=== PATIENT | female | born 1985 | race Caucasian/White ===

== ENCOUNTER 2022-04-13 11:49 | Emergency (ER) | payer OTHER, SELFPAY ==
[2022-04-13 12:00] VITALS: BP 114/67; PULSE 97; RESP 20; TEMP 38.5; O2SAT 98; BMI 24.2
--- NOTE | 2022-04-13 12:08 | ECG_ITS ---
Test Reason : SYNCOPE Blood Pressure : / mmHG Vent. Rate : 084 BPM Atrial Rate : 084 BPM P-R Int : 150 ms QRS Dur : 082 ms QT Int : 372 ms P-R-T Axes : 068 076 054 degrees QTc Int : 439 ms Normal sinus rhythm Possible Left atrial enlargement Nonspecific ST and T wave abnormality Abnormal ECG No previous ECGs available Referred By: Stacy Burnham Electronically Signed By:MIGUEL ANGEL MAGANA MD
[2022-04-13 12:11] LABS: Glucose, Whole Blood 118 mg/dL (60-115)
--- OUTSIDE RECORDS SUMMARY | 2022-04-13 12:36 | XMS_ITS | Continuity of Care Document ---
:1985 Author Organization [facility] [employer] Address [address] [place] [id number] Care Team Providers Name Role Phone Not on Staff, PCP Primary Care Physician Unavailable Encounter [facility] – [place] Date(s): 04/27/21 - 05/04/21 [facility] [employer] [address] [place] [address], [address] [place] [id number] Attending Physician: Adelita Borrero MD Referring Physician: Not on Staff, Referring MD Allergies, Adverse Reactions, Alerts No Known Allergies Medications Vitamin D2 By Mouth, 0 Refills, Maintenance, 04/27/21 10:41:00 EST, Partial fill upon patient request if the prescription is for a schedule II opioid drug. Start Date: 04/27/21 Status: Ordered Problem List Condition Effective Dates Status Health Status Informant History of repair of congenital atrial Active septal defect (ASD)(Confirmed) Pelvic pain(Confirmed) Active Well woman exam(Confirmed) Active Procedures Procedure Date Related Diagnosis Body Site Status Appendectomy Completed ASD - Repair of atrial septal defect Completed Open left salpingoophorectomy for Completed endometrioma Vital Signs Most recent to oldest [Reference Range]: 1 Height 168 cm (04/27/21 10:34 AM) Weight 71.36 kg (04/27/21 10:34 AM) Body Mass Index [18.5-24.99] 25.28 *H* (04/27/21 10:34 AM) Blood Pressure [90-138/55-84 mm Hg] 110/62 mm Hg (04/27/21 10:34 AM) Blood pressure sites Arm, left (04/27/21 10:34 AM) Weight Obtained Via Standing scale (04/27/21 10:34 AM) Social History Social History Type Response Smoking Status Never (less than 100 in life time) entered on: 04/27/21 Sex
--- OUTSIDE RECORDS SUMMARY | 2022-04-13 12:36 | XMS_ITS | Continuity of Care Document ---
:1985 Author Organization [facility] [employer] Address [address] [place] [id number]- Care Team Providers Name Role Phone Not on Staff, PCP Primary Care Physician Unavailable Encounter [facility] – [place] Date(s): 03/01/22 - 03/31/22 [facility] [address] [place] [id number] Allergies, Adverse Reactions, Alerts No Known Allergies Medications Vitamin D2 By Mouth, 0 Refills, Maintenance, 04/27/21 10:41:00 EST, Partial fill upon patient request if the prescription is for a schedule II opioid drug. Start Date: 04/27/21 Status: Ordered Problem List Condition Confirmation Course Effective Dates Status Health Stat us Informant History of repair Confirmed Active of congenital atrial septal defect (ASD) Pelvic pain Confirmed Active Well woman exam Confirmed Active Social History Social History Type Response Smoking Status Never (less than 100 in life time) entered on: 04/27/21 Sex Patient Care team information Care Team PersonnelName: Not on Staff, PCP Position: S Physician (General Medicine) Member Role: PCP
[2022-04-13 12:59] LABS: Influenza A PCR POSITIVE (Negative); Influenza B PCR NEGATIVE (Negative); Resp Syncy Virus RNA Qual PCR NEGATIVE (Negative); SARS COV2 PCR INHOUSE NEGATIVE (Negative)
--- NOTE | 2022-04-13 13:33 | ED.SYNCOPE ---
HPI - Syncope General Chief Complaint: Syncope Stated Complaint: syncope Time Seen by Provider: 04/13/22 11:58 Source: patient Mode of arrival: wheelchair History of Present Illness HPI narrative: This is a 36-year-old female without significant past medical history and states that she started to not feel well Sunday evening and began taking TheraFlu as she thought that she had a cold and then today she had not had much to eat or drink throughout the day, was standing for approximately 20 minutes and then began feeling like she had a hot flash, sweating, and dizzy and sat down and states that she felt better once she sat down. She states that she had a similar episode when she was with her daughter and this has prompted a request for urine test. She denies any head strike as she did not completely pass out and even though the triage note states Tamiflu the patient has corrected that and said that she was taking TheraFlu. Related Data Allergies Allergy/AdvReac Type Severity Reaction Status Date / Time Unable to Assess Allergy Verified 04/13/22 12:07 Review of Systems Review of Systems: Pertinent positives and negatives as stated in HPI. PMFSH Past Medical History Source: nursing notes reviewed Social History Social History Advance Directives: No Advance Directives Information Provided: Yes Physical Exam Vital Signs: Vital Signs: Last Vital Signs Temp 101.3 F H 04/13/22 12:00 Pulse 97 04/13/22 12:00 Resp 20 04/13/22 12:00 BP 114/67 04/13/22 12:00 Pulse Ox 98 04/13/22 12:00 O2 Del Method 04/13/22 12:00 BMI result Body Mass Index 24.2 VITAL SIGNS: Reviewed. GENERAL: Well developed, well nourished, in no acute distress. HEAD: Normocephalic/atraumatic EYES: PERRLA, EOMI EARS: Ext canals without abnormality, TMs non-bulging and non-erythematous NOSE: Nares patent bilateral OROPHARYNX: no oral lesions noted, posterior pharynx clear and non-erythematous without noted tonsillar enlargement/erythema/exudates NECK: Supple, no adenopathy LUNGS: Normal breath sounds. No adventitious sounds or accessory muscle use. SpO2<98> CARDIOVASCULAR: Regular rate and rhythm without noted murmurs ABDOMEN: Soft, non-tender, non-distended with bowel sounds. MUSCULOSKELETAL: No tenderness, deformities, or effusions noted on gross inspection. EXTREMITIES: No cyanosis, clubbing or edema. SKIN: Inspection of the skin reveals no rashes NEUROLOGIC: Alert and oriented x 4. Strength and sensation to light touch were grossly intact x 4. Medications Administered Discontinued Medications Generic Name Dose Route Start Last Admin Trade Name Freq PRN Reason Stop Dose Admin Acetaminophen 975 mg 04/13/22 13:20 04/13/22 13:56 Acetaminophen 325 Mg Tablet PO 04/13/22 13:21 975 mg ONCE ONE Administration Medical Decision Making Medical Decision Making [facility] Narrative: 36-year-old female who appears well, she states that she feels much better, she will receive antipyretics and on review of the viral testing she is noted to be flu positive but as symptoms started Sunday evening she is outside the window for initiation of Tamiflu. She understands that treatment is symptomatic with hydration and antipyretics/analgesics. 1452: Patient is now afebrile on re-evaluation, she is feeling much better and on review of urinalysis and urine there is no evidence of infection or . This was all discussed with patient at bedside. Differential Diagnosis Differential Diagnoses: The differential diagnosis associated with the presentation includes Near syncope, viral syndrome, influenza A positive Lab Data [facility] Lab Attestation statement: I reviewed the patient's lab results. Please see above for discussion Labs: Lab Results 04/13/22 04/13/22 04/13/22 Range/Units 12:04 12:07 14:20 POC Glucose 118 H (60-115) mg/dL Urine Color Yellow Urine Appearance Clear Urine pH 5.5 (5.0-9.0) Ur Specific [place] 1.015 (1.005-1.025) Urine Protein Negative (Neg-Trace) mg/dL Urine Glucose (UA) Negative (Negative) mg/dL Urine Ketones Negative (Negative) mg/dL Urine Blood Negative (Negative) Urine Nitrite Negative (Negative) Ur Leukocyte Esterase Trace H (Negative) Urine RBC 0-2 (0-2) /HPF Urine WBC 0-5 (0-5) /HPF Ur Squamous Epith Cells 0-2 (0-2) /HPF Urine Bacteria None Seen (None Seen) Hyaline Casts 0-2 (0-2) /LPF Urine Test (NEGATIVE) Influenza Type A (PCR) POSITIVE A (Negative) Influenza Type B (PCR) NEGATIVE (Negative) RSV RNA Qual (PCR) NEGATIVE (Negative) SARS-CoV-2 RNA (RT-PCR) NEGATIVE (Negative) 04/13/22 Range/Units 14:20 POC Glucose (60-115) mg/dL Urine Color Urine Appearance Urine pH (5.0-9.0) Ur Specific [place] (1.005-1.025) Urine Protein (Neg-Trace) mg/dL Urine Glucose (UA) (Negative) mg/dL Urine Ketones (Negative) mg/dL Urine Blood (Negative) Urine Nitrite (Negative) Ur Leukocyte Esterase (Negative) Urine RBC (0-2) /HPF Urine WBC (0-5) /HPF Ur Squamous Epith Cells (0-2) /HPF Urine Bacteria (None Seen) Hyaline Casts (0-2) /LPF Urine Test NEGATIVE (NEGATIVE) Influenza Type A (PCR) (Negative) Influenza Type B (PCR) (Negative) RSV RNA Qual (PCR) (Negative) SARS-CoV-2 RNA (RT-PCR) (Negative) Independent Interpretation I performed an independent interpretation of an: EKG Interpretation: Normal sinus rhythm, HR-84, no STEMI, MO/QRS/QTC is within normal limits. Critical Care Time Critical Care Time Critical Care Time: Yes Total Critical Care Time: 30 Attestation: I personally attest to this time spent taking care of the patient. Discharge Plan Discharge Clinical Impression: Near syncope, Viral syndrome, Influenza A, Dehydration Patient Disposition: Home, Self-Care Instructions: Dehydration (ED), Syncope (ED), Influenza (ED), Viral Syndrome (ED) Additional Instructions: 1. Please remain well hydrated by drinking plenty of water. 2. Recommend [id number] Tylenol/ibuprofen as needed for body aches, temperatures greater than 100.4 but please keep track of the amount of acetaminophen as some cough and cold medication contain this ingredient and you should not exceed 4000 mg within 24 hours. 3. Please follow-up with your primary care doctor. Return to the ER for any worsening symptoms. Stand Alone Forms: Work/School Release
[2022-04-13] MEDS: Acetaminophen 325 MG TABLET 975 MG PO (13:56)
[2022-04-13 14:30] LABS: Appearance Urine Clear; Color Urine Yellow; Glucose Urine UA Negative (Negative); Leukocyte Esterase Urine Trace (Negative); Nitrite Urine Negative (Negative); PH 5.5 (5.0-9.0); Specific Gravity - Urine 1.015 (1.005-1.025); UMIC TRIGGER UACC YES; Urine Blood Negative (Negative); Urine Ketones Negative (Negative); Urine Protein Negative (Neg-Trace)
[2022-04-13 14:32] LABS: UPreg QC Valid YES; Urine Pregnancy NEGATIVE (NEGATIVE)
[2022-04-13 14:33] LABS: Bacteria Urine None Seen (None Seen); Hyaline Casts Urine 0-2 /LPF (0-2); RBC Urine 0-2 /HPF (0-2); Squamous Epithelial Cell Urine 0-2 /HPF (0-2); WBC Urine 0-5 /HPF (0-5)
[2022-04-13 14:54] VITALS: TEMP 36.9
== END 2022-04-13 15:09 | disposition home or self-care (01) ==
PROVIDERS: Emergency Provider Student in an Organized Health Care Education/Training Program
DX: R55 Syncope and collapse (principal); J11.1 Influenza due to unidentified influenza virus with other respiratory manifestations; E86.0 Dehydration
CPT/HCPCS: 0241U; 81001; 81025; 82947; 93005; 99283; 99284

== ENCOUNTER 2022-07-13 10:45 | Outpatient (REF) | payer OTHER, SELFPAY ==
[2022-07-14 12:11] LABS: CT PCR NOT DETECTED (Not Detect.); NG PCR NOT DETECTED (Not Detect.)
[2022-07-18 04:08] LABS: HPV mRNA E6/E7 rflx Not Detected (Not Detected)
== END 2022-07-13 10:46 | disposition home or self-care (01) ==
LOC: HO.LNP 10:45
PROVIDERS: Visit Provider Advanced Practice Midwife
DX: Z01.419 Encounter for gynecological examination (general) (routine) without abnormal findings (principal); Z11.51 Encounter for screening for human papillomavirus (HPV); Z20.2 Contact with and (suspected) exposure to infections with a predominantly sexual mode of transmission
CPT/HCPCS: 0353U; 87624; 88142

== ENCOUNTER 2022-09-22 08:05 | Outpatient (REF) | payer OTHER, SELFPAY ==
[2022-09-22 08:31] LABS: MANUAL DIFF FLAG NO
[2022-09-22 08:46] LABS: Basophils Percent Auto 0.5 % (0-2); Eosinophils Absolute Auto 0.1 X10*3/uL (0.0-0.4); Eosinophils Percent Auto 1.9 % (0-4); Hematocrit 40.3 % (37.0-47.0); Hemoglobin 13.2 g/dl (12.0-16.0); Imm Gran Abs Auto 0.01 X10*3/uL (0.00-0.03); Imm Gran Pct Auto 0.2 % (0.0-0.4); Lymphocytes Absolute Auto 2.3 X10*3/uL (1.2-4.9); Lymphocytes Percent Auto 39.6 % (20-40); Mean Corpuscular HGB Conc 32.8 g/dl (31.0-35.0); Mean Corpuscular Hemoglobin 28.7 pg (27.0-33.0); Mean Corpuscular Volume 87.6 fL (80.0-98.0); Mean Platelet Volume 9.6 fL (9.4-12.3); Monocytes Absolute Auto 0.3 X10*3/uL (0.1-1.2); Monocytes Percent Auto 5.8 % (2-11); Neutrophils Absolute Auto 3.1 x10*3/uL (2.0-8.3); Platelet Count 290 X10*3/uL (160-400); Red Cell Distribution Width 13.1 % (11.0-16.0); White Blood Count 5.9 X10*3/uL (4.8-10.8)
[2022-09-22 09:23] LABS: Alanine Aminotransferase 49 U/L (0-31); Albumin Level 4.1 g/dL (3.5-5.0); Alkaline Phosphatase 80 U/L (39-117); Anion Gap 11 (12-20); Aspartate Amino Transferase 32 U/L (5-31); Bilirubin Total 0.5 mg/dL (0.0-1.0); Blood Urea Nitrogen 7 mg/dL (9-16); Calcium 9.3 mg/dL (8.4-10.2); Carbon Dioxide 25 mmol/L (22-29); Chloride 108 mmol/L (96-108); Cholesterol 126 mg/dL; Estimated Glomerular Filt Rate > 60; Glucose Fasting 93 mg/dL (60-99); HDL Cholesterol 37 mg/dL; LDL Cholesterol Calculated 80 mg/dl; Potassium 4.4 mmol/L (3.3-5.1); Sodium 140 mmol/L (135-145); Total Protein 7.3 g/dL (6.5-8.0); Triglycerides 49 mg/dL
[2022-09-22 09:44] LABS: TSH reflex Free T4 0.74 uIU/mL (0.32-4.0)
== END 2022-09-22 08:06 | disposition home or self-care (01) ==
LOC: HO.LAB 08:05
PROVIDERS: Visit Provider Nurse Practitioner Family
DX: Z13.220 Encounter for screening for lipoid disorders (principal); Z13.0 Encounter for screening for diseases of the blood and blood-forming organs and certain disorders involving the immune mechanism; Z13.29 Encounter for screening for other suspected endocrine disorder
CPT/HCPCS: 36415; 80053; 80061; 84443; 85025

== ENCOUNTER 2022-09-29 10:25 | Outpatient (REF) | payer OTHER, SELFPAY ==
[2022-09-29 11:59] LABS: Alanine Aminotransferase 81 U/L (0-31); Albumin Level 4.2 g/dL (3.5-5.0); Alkaline Phosphatase 74 U/L (39-117); Anion Gap 11 (12-20); Aspartate Amino Transferase 36 U/L (5-31); Bilirubin Total 1.3 mg/dL (0.0-1.0); Blood Urea Nitrogen 9 mg/dL (9-16); Calcium 9.7 mg/dL (8.4-10.2); Carbon Dioxide 27 mmol/L (22-29); Chloride 105 mmol/L (96-108); Estimated Glomerular Filt Rate > 60; Glucose Random 87 mg/dL (60-115); Potassium 4.3 mmol/L (3.3-5.1); Sodium 139 mmol/L (135-145); Total Protein 7.3 g/dL (6.5-8.0)
[2022-09-29 12:54] LABS: HBS Num1 322.39 mIU/mL (0-7.99); HBc Num1 0.06 S/CO (0.00-0.79); HBsAGNum1 0.46 S/CO (0.00-0.99); Hepatitis A Antibody IgM 0.22 Index (0-0.79); Hepatitis B Core Antibody Nonreactive (Nonreactive); Hepatitis B Surface Antigen Negative (Negative); ~HepC Num1 0.07 S/CO (0.00-0.79); ~Hepatitis A Antibody IgM Nonreactive (Nonreactive); ~Hepatitis B Surface Antibody REACTIVE (Nonreactive); ~Hepatitis C Antibody Nonreactive (Nonreactive)
== END 2022-09-29 10:26 | disposition home or self-care (01) ==
LOC: HO.LAB 10:25
PROVIDERS: PCP Nurse Practitioner Family; Visit Provider Nurse Practitioner Family
DX: R79.89 Other specified abnormal findings of blood chemistry (principal)
CPT/HCPCS: 36415; 80053; 86704; 86706; 86709; 86803; 87340

== ENCOUNTER 2022-10-13 07:51 | Outpatient (REF) | payer OTHER, SELFPAY ==
--- NOTE | ~2022-10-13 | US_ITS ---
EXAMINATION: US ABDOMEN LIMITED CLINICAL INFORMATION: Other specified abnormal findings of blood chemistry. COMPARISON: None available. TECHNIQUE: Real-time imaging of the right upper quadrant abdominal viscera. FINDINGS: PANCREAS: Normal. LIVER: The liver is normal in size. The liver contour is normal. Parenchymal echogenicity is normal. A 3 mm echogenic focus in the right lobe of the liver possibly a tiny hemangioma or prominent periportal fat to small to definitively characterize. There is no intrahepatic biliary duct dilatation seen. GALLBLADDER: Normal. The gallbladder is physiologically distended without evidence of stones, sludge, polyps, wall thickening or pericholecystic fluid. COMMON BILE DUCT: Normal in caliber measuring 0.4 cm in diameter. RIGHT KIDNEY: Normal. No hydronephrosis. No renal calculi or focal parenchymal lesions. The kidney measures 10.7 cm in maximum dimension. FREE FLUID: None. US/US abdomen limited IMPRESSION: A 3 mm echogenic focus in the right lobe of the liver possibly a tiny hemangioma or prominent periportal fat to small to definitively characterize. Otherwise unremarkable abdominal ultrasound.
== END 2022-10-13 07:52 | disposition home or self-care (01) ==
LOC: HO.US 07:51
PROVIDERS: PCP Nurse Practitioner Family; Visit Provider Nurse Practitioner Family
DX: R79.89 Other specified abnormal findings of blood chemistry (principal)
CPT/HCPCS: 76705

== ENCOUNTER 2023-03-23 12:02 | Outpatient (AMB) | payer OTHER, SELFPAY ==
--- NOTE | 2023-03-23 12:02 | MHC.PC.OV ---
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 Accompanied by: Self / Same As Patient Allergies No Known Allergies Allergy (Verified 03/23/23 12:09) Medication List - Last Reconciled 03/23/23 by ZENOBIA Lewis No Known Home Meds Tobacco use date assessed: 09/05/22 Dental Screening Dental Screen Date: 03/23/23 Did you have a dental visit in the last 12 months?: Yes Did you have a dental problem in the last 6 months where you did not have access to dental care?: No Was dental information given to patient?: Patient has dentist HPI HPI Comments History of Present Illness Details 37-year-old female past medical history significant for ASD underwent open-heart surgery at age 13. Nauseaous daily x1 month. denies vomiting. Patient reports she is trying to conceive, states getting regular menstrual cycles, last had menses 3 weeks ago. Patient also reports sharp epigastric pain and belching. Stage that her mom and brother both have had H pylori in the past with similar symptoms. Patient would like to be tested for this. Previous blood work showed elevated LFTs, hepatitis panel nonreactive, ABD U/S: 3 mm echogenic focus in the right lobe of the liver possibly a tiny hemangioma or prominent periportal fat to small to definitively characterize. Otherwise unremarkable abdominal ultrasound. Patient also requesting referral to Dermatology for reoccur angular chelitis, states she will use steroid cream and it will resolve however that it continues to reoccur referral entered. Will draw vitamin B12, B1 and vitamin-D to further evaluate for any vitamin deficiencies [facility] Medical History (Updated 03/23/23 @ 12:32 by ZENOBIA Lewis) Palpitations Surgical History History of repair of congenital atrial septal defect (ASD) History of left oophorectomy History of appendectomy History of open heart surgery Family History Mother No problems noted. Father No problems noted. Brother CAD (coronary artery disease) Daughter No problems noted. Social History Household Members: Spouse and Children Household Members Other:: daughter Housing: Apartment Alcohol intake: never Patient Tobacco Use Status: Never used Tobacco e-Cigarette/Vaping Use: Never Used Second Hand Smoke Exposure: No Current occupational status: employed Current occupation: [employer] Sexual orientation: Straight/Heterosexual Gender identity: Female Cognitive needs: No Hearing needs: No Vision needs: No Female Reproductive History Menstrual Age of Menarche: 15 Questionnaire Thrive Questionnaire Date Thrive assessed: 09/05/22 LIANNA-7 AMB Questionnaire LIANNA-7 Date LIANNA - 7 assessed: 09/05/22 Source: Developed by Drs. Hubert Wilder, Treasure Morris, Bunny Moy and colleagues, with an educational sukumar from [employer]. Review of Systems Const Denies chills, Denies fatigue, Denies fever(s) and Denies poor appetite Eyes Denies no additional complaints ENT Reports Normal hearing present Card Denies chest pain, Denies syncope, Denies rapid heart rate and Denies dyspnea Resp Denies cough and Denies dyspnea GI Reports abdominal pain (sharp epigastric pain ), Reports belching, Denies change in stool character, Denies constipation, Denies diarrhea, Reports nausea and Denies vomiting Denies urinary frequency, Denies dysuria and Denies urinary urgency Neuro Reports Normal hearing present, Denies confusion and Denies syncope Psych Denies confusion Endo Denies fatigue Physical exam (Primary Care) Vital Signs: Last Vital Signs Pulse 102 H 03/23/23 12:03 BP 116/70 03/23/23 12:03 Pulse Ox 99 03/23/23 12:03 Oxygen Delivery Method Room Air 03/23/23 12:03 BMI result Body Mass Index 25.1 Tobacco/Smoking Status: Tobacco use Status Tobacco use date assessed 09/05/22 03/23/23 12:08 Patient Tobacco Use Status Never used Tobacco 03/23/23 12:08 e-Cigarette/Vaping Use Never Used 03/23/23 12:08 Thrive Assessment: Date of Thrive Assessment Date Thrive assessed 09/05/22 03/23/23 12:08 Const General: No confusion Orientation/consciousness: No confusion HENMT Head: Yes normocephalic and Yes atraumatic Eyes Conjunctivae: conjunctivae normal Chest Chest palpation & inspection: normal inspection of the chest Resp Effort & Inspection: normal respiratory effort Auscultation: clear to auscultation bilaterally, no crackles, no rhonchi and no wheezes Cardio Rate: regular rate Rhythm: regular rhythm Heart sounds: S1 normal heart sound present and S2 normal heart sound present GI Inspection: Yes normal to inspection Palpation (GI): Soft to palpation, nontender and No hepatosplenomegaly present Auscultation: normoactive bowel sounds Neuro General: No confusion Cranial nerves: Yes Normal hearing present Extrem General: No edema Assessment and Plan Assessment & Plan (1) Nauseous: Code(s): R11.0 - Nausea Plan: Upper prescription for Zofran however patient declines that she does not like to take medications. Will draw hCG to rule out given patient actively trying to conceive. (2) Dyspepsia: Code(s): R10.13 - Epigastric pain Plan: Epigastric pain and belching possibly related to dyspepsia or acid reflux did discuss trialing omeprazole. However patient would like to hold off at this time. Patient advise can try [id number] Tums she would like. (3) Elevated LFTs: Code(s): R79.89 - Other specified abnormal findings of blood chemistry Plan: Repeat LFTs ordered. Patient reports does not drink any alcohol and denies excessive Tylenol use. (4) Angular cheilitis: Code(s): K13.0 - Diseases of lips (5) Epigastric pain: Code(s): R10.13 - Epigastric pain Plan: H. pylori ordered Patient declined treatment with omeprazole for possible acid reflux. Advise can use [id number] to on. Orders: Orders H Pylori Breath Test Today Vitamin D 25-OH Total Today Z13.21 - Encounter for screening for nutritional disorder Vitamin B1 Today Z13.21 - Encounter for screening for nutritional disorder Comprehensive Met. Panel Today R10.13 - Epigastric pain HCG Quantitative Today R11.0 - Nausea Vitamin B12 and Folate Today Z13.21 - Encounter for screening for nutritional disorder Referrals Dermatology Referral K13.0 - Diseases of lips Coding Level of Care Code Est Pt Level 3 (86959) Diagnoses Nauseous R11.0 Dyspepsia R10.13 Elevated LFTs R79.89 Angular cheilitis K13.0 Epigastric pain R10.13
[2023-03-23 12:03] VITALS: BP 116/70; PULSE 102; O2SAT 99; BMI 25.1
== END 2023-03-23 13:49 | disposition home or self-care (01) ==
PROVIDERS: PCP Nurse Practitioner Family; Visit Provider Nurse Practitioner Family
DX: R11.0 Nausea (principal); R10.13 Epigastric pain; R79.89 Other specified abnormal findings of blood chemistry; K13.0 Diseases of lips
CPT/HCPCS: 99213

== ENCOUNTER 2023-03-26 08:00 | Outpatient (REF) | payer OTHER, SELFPAY ==
[2023-03-26 11:08] LABS: Alanine Aminotransferase 25 U/L (0-31); Albumin Level 4.4 g/dL (3.5-5.0); Alkaline Phosphatase 77 U/L (39-117); Anion Gap 12 (12-20); Aspartate Amino Transferase 20 U/L (5-31); Bilirubin Total 0.5 mg/dL (0.0-1.0); Blood Urea Nitrogen 12 mg/dL (9-16); Calcium 9.3 mg/dL (8.4-10.2); Carbon Dioxide 25 mmol/L (22-29); Chloride 107 mmol/L (96-108); Estimated Glomerular Filt Rate > 60; Glucose Random 89 mg/dL (60-115); Potassium 3.8 mmol/L (3.3-5.1); Sodium 140 mmol/L (135-145); Total Protein 7.6 g/dL (6.5-8.0)
[2023-03-26 11:16] LABS: HCG Quantitative < 2 mIU/mL; Vitamin D 25-OH Total 27.3 ng/mL (>30)
[2023-03-26 11:20] LABS: Folate 11.5 ng/mL (> or = 4.0); Vitamin B12 709 pg/mL (200-900)
[2023-03-30 11:09] LABS: Vitamin B1 10 nmol/L (8-30)
== END 2023-03-26 08:01 | disposition home or self-care (01) ==
LOC: HO.LAB 08:00
PROVIDERS: Visit Provider Nurse Practitioner Family
DX: Z13.21 Encounter for screening for nutritional disorder (principal); R11.0 Nausea; R79.89 Other specified abnormal findings of blood chemistry
CPT/HCPCS: 36415; 80053; 82306; 82607; 82746; 84425; 84702

== ENCOUNTER 2023-04-24 12:53 | Outpatient (AMB) | payer OTHER, SELFPAY ==
--- NOTE | 2023-04-24 13:05 | A.OFFVIS_ITS ---
Intake Vital Signs 04/24/23 13:07 Height 5 ft 6 in Weight 156 lb 8.451 oz BMI 25.3 BP 116/71 Blood Pressure Location Lt brachial Position Sitting Pulse 72 Intake Visit Reasons: Epigastric Pain Intake Note: Mabel presents in the office as a new patient for epigastric pain. CC: She states that it comes on and off. She has been fasting because she wants to do an H PYLORI breathe test. Mother and brother both tested positive and had treatment. Allergies No Known Allergies Allergy (Verified 04/24/23 13:07) HPI HPI Comments History of Present Illness Details A 37-year-old female referred with intermittent epigastric pain, maybe 1-2 times a week-she says that both her mother and brother had H pylori In occasional intermittent vague epigastric pain-she has not tried any remedy Liver enzymes are normal Healthy otherwise- appetite is good Bowels ok No nausea, vomiting hematemesis, hematochezia fever chills PFSH Medical History Palpitations Surgical History History of repair of congenital atrial septal defect (ASD) History of left oophorectomy History of appendectomy History of open heart surgery Family History Mother No problems noted. Father No problems noted. Brother CAD (coronary artery disease) Daughter No problems noted. Maternal Aunt Colon cancer Social History Household Members: Spouse and Children Household Members Other:: daughter Housing: Apartment Alcohol intake: never Comment: social- rarely Patient Tobacco Use Status: Never used Tobacco e-Cigarette/Vaping Use: Never Used Second Hand Smoke Exposure: No Current occupational status: employed Current occupation: [employer] Sexual orientation: Straight/Heterosexual Gender identity: Female Cognitive needs: No Hearing needs: No Vision needs: No Female Reproductive History Menstrual Age of Menarche: 15 Review of Systems Const All systems reviewed & are unremarkable except as noted in HPI and below Card Denies chest pain and Denies dyspnea Resp Denies dyspnea GI Denies hematochezia, Denies change in bowel habits, Reports dyspepsia, Denies heartburn, Denies nausea and Denies vomiting Physical Exam Vital Signs: Last Vital Signs Pulse 72 04/24/23 13:07 BP 116/71 04/24/23 13:07 BMI result Body Mass Index 25.3 Const General: cooperative, healthy appearing, comfortable and no acute distress Orientation/consciousness: patient oriented x3 Limitations: no limitations Eyes Sclerae: sclerae normal Resp Effort & Inspection: normal respiratory effort and able to speak in complete sentences Auscultation: clear to auscultation bilaterally, no rales, no rhonchi and no wheezes Cardio Rate: regular rate Rhythm: regular rhythm Heart sounds: S1 normal heart sound present and S2 normal heart sound present GI Palpation (GI): Soft to palpation and nontender Auscultation: normal bowel sounds Skin General skin exam: no rashes or lesions noted Neuro General: patient oriented x3 Extrem General: Yes full ROM Psych Appearance: grossly normal and well kempt Mental Status: mental status grossly normal Speech and movement: Normal speech and movement present and Clear speech present Affect: normal affect Attitude: cooperative Thought process: Normal thought process present Thought content: Normal thought content present Insight: Good insight present (Psych) Judgement: Good judgement present (Psych) Results Reviewed Results Reviewed: 09/2022 US/US abdomen limited IMPRESSION: A 3 mm echogenic focus in the right lobe of the liver possibly a tiny hemangioma or prominent periportal fat to small to definitively characterize. Otherwise unremarkable abdominal ultrasound. Assessment & Plan Assessment & Plan (1) Dyspepsia: Comment: Intermittent vague Code(s): R10.13 - Epigastric pain Plan: H pylori breath test if positive will treat Meanwhile will trial famotidine 20 mg daily Try to identify culprits and avoid (2) Epigastric pain: Comment: Intermittent, normal liver enzymes Code(s): R10.13 - Epigastric pain Plan HP UBT- obtained- if pos tx famotodine 20mg Orders: Orders H Pylori Breath Test Today R10.13 - Epigastric pain, R11.0 - Nausea Medications: New famotidine 20 mg PO DAILY 30 days PRN 30 tabs 3RF acid reflux Patient Instructions: Very pleasant 37-year-old female-dyspepsia, family members with H pylori HP UBT- obtained- if pos tx famotodine 20 mg she will stop up for results Encouraged to call with any questions or concerns Coding Level of Care Code New Pt Level 3 (58922) Diagnoses Dyspepsia R10.13 Epigastric pain R10.13 Time Spent (min) 30
[2023-04-24 13:07] VITALS: BP 116/71; PULSE 72; BMI 25.3
== END 2023-04-24 14:14 | disposition home or self-care (01) ==
PROVIDERS: PCP Nurse Practitioner Family; Visit Provider Physician Assistant
DX: R10.13 Epigastric pain (principal)
CPT/HCPCS: 99203

== ENCOUNTER 2023-04-24 12:53 | Outpatient (REF) | payer OTHER, SELFPAY ==
[2023-04-27 09:55] LABS: H Pylori Breath Test Negative (Negative)
== END 2023-04-24 12:54 | disposition home or self-care (01) ==
LOC: HO.LNP 12:53
PROVIDERS: PCP Nurse Practitioner Family; Visit Provider Physician Assistant
DX: R10.13 Epigastric pain (principal)
CPT/HCPCS: 83013

== ENCOUNTER 2023-06-18 11:22 | Outpatient (AMB) | payer OTHER, SELFPAY ==
--- NOTE | 2023-06-18 11:30 | MHC.OFFVIS ---
Intake Vital Signs 06/18/23 11:31 Height 5 ft 6 in Weight 152 lb 1.903 oz BMI 24.5 BP 101/57 L Blood Pressure Location Lt brachial Position Sitting Pulse 72 Intake Visit Reasons: Follow up meds Intake Note: Patient follow up for chronic abdominal pain Patient cc: upper abdominal pain almost daily with nauseas, and some diarrhea. Spares Scheduler Required: No Accompanied by: Self / Same As Patient Allergies No Known Allergies Allergy (Verified 06/18/23 11:30) HPI HPI Comments History of Present Illness Details A 37 y/o female seen in April with- chronic epigastric pain- and wlrwfh-[id number]-f 1 month- not helpful HP- UBT- negative-request retest for H pylori- request EGD, She now c/o loose stool maybe once a week-occasion, randomly will have rectal itching no rectal bleeding Request to be tested for parasites-she lives with her young daughter and no symptoms-she refers back to her childhood Reviewed labs- nrml enzymes She has no vomiting, hematemesis, hematochezia fever or chills PFSH Medical History Palpitations Surgical History History of repair of congenital atrial septal defect (ASD) History of left oophorectomy History of appendectomy History of open heart surgery Family History Mother No problems noted. Father No problems noted. Brother CAD (coronary artery disease) Daughter No problems noted. Maternal Aunt Colon cancer Social History Household Members: Spouse and Children Household Members Other:: daughter Housing: Apartment Alcohol intake: never Comment: social- rarely Patient Tobacco Use Status: Never used Tobacco e-Cigarette/Vaping Use: Never Used Second Hand Smoke Exposure: No Current occupational status: employed Current occupation: [employer] Sexual orientation: Straight/Heterosexual Gender identity: Female Cognitive needs: No Hearing needs: No Vision needs: No Female Reproductive History Menstrual Age of Menarche: 15 Review of Systems Const All systems reviewed & are unremarkable except as noted in HPI and below Physical Exam Vital Signs: Last Vital Signs Pulse 72 06/18/23 11:31 BP 101/57 L 06/18/23 11:31 BMI result Body Mass Index 24.5 Const General: cooperative, healthy appearing, comfortable and no acute distress Orientation/consciousness: patient oriented x3 Limitations: no limitations Resp Effort & Inspection: normal respiratory effort and able to speak in complete sentences Auscultation: clear to auscultation bilaterally, no rales, no rhonchi and no wheezes Cardio Rate: regular rate Rhythm: regular rhythm Heart sounds: S1 normal heart sound present and S2 normal heart sound present GI Palpation (GI): Soft to palpation and nontender Auscultation: normal bowel sounds Skin General skin exam: no rashes or lesions noted Neuro General: patient oriented x3 Extrem General: Yes full ROM Psych Appearance: grossly normal and well kempt Speech and movement: Clear speech present Affect: normal affect and Anxious affect present Attitude: cooperative Thought process: Normal thought process present Thought content: Normal thought content present Assessment & Plan Assessment & Plan (1) Rectal itching: Comment: declines tess Code(s): L29.0 - Pruritus ani Plan: O&P (2) Epigastric pain: Comment: Intermittent, normal liver enzymes Code(s): R10.13 - Epigastric pain Plan: EGD ppi (3) IBS (irritable bowel syndrome): Comment: Symptoms somewhat vague-alternating stool pattern- Code(s): K58.9 - Irritable bowel syndrome without diarrhea Plan: Maintain high-fiber diet Plan EGD may be low yield, if negative will be reassuring, hopefully-r/o PUD, nonulcer dyspepsia, esophagitis other endoscopic findings to account for her symptoms ppi O&P Orders: Orders Ova and Parasite Today L29.0 - Pruritus ani, R10.13 - Epigastric pain EDG - GI Use Only Today R10.13 - Epigastric pain Medications: New omeprazole 20 mg PO DAILY 30 days 30 caps 5RF Patient Instructions: EGD Reflux precautions Stool for O&P Encouraged to call questions or concerns Coding Level of Care Code Est Pt Level 3 (02346) Diagnoses Rectal itching L29.0 Epigastric pain R10.13 IBS (irritable bowel syndrome) K58.9 Time Spent (min) 30
[2023-06-18 11:31] VITALS: BP 101/57; PULSE 72; BMI 24.5
== END 2023-06-18 12:38 | disposition home or self-care (01) ==
PROVIDERS: PCP Nurse Practitioner Family; Visit Provider Physician Assistant
DX: L29.0 Pruritus ani (principal); R10.13 Epigastric pain; K58.9 Irritable bowel syndrome, unspecified
CPT/HCPCS: 99213

== ENCOUNTER → 2023-06-18 11:22 | Outpatient (BNVA) | payer OTHER, SELFPAY | PROVIDERS: PCP Nurse Practitioner Family; Visit Provider Physician Assistant ==

== ENCOUNTER 2023-06-19 10:03 | Day surgery (SDC) | payer OTHER, SELFPAY ==
[2023-06-19 10:20] VITALS: BMI 25.3
[2023-06-19 10:28] LABS: UPreg QC Valid YES; Urine Pregnancy NEGATIVE (NEGATIVE)
[2023-06-19 10:31] VITALS: BP 107/66; PULSE 99; RESP 18; TEMP 36.6; O2SAT 96
--- NOTE | 2023-06-19 10:42 | P.CONAN_ITS ---
HPI - Anesthesia Eval Consult details Narrative: 37 yo F presenting for EGD due to chronic abdominal pain. Hx of ASD s/p repair at age 13. PMF Active Problems Active Problems: All Active Problems (Updated 06/18/23 @ 12:36 by Angela Harris PA-C) IBS (irritable bowel syndrome) (Acute) Rectal itching (Acute) Epigastric pain (Acute) Angular cheilitis (Acute) Dyspepsia (Acute) Nauseous (Acute) Elevated LFTs (Acute) Otitis externa (Acute) Past Medical History Medical History Palpitations Family History Family History Mother No problems noted. Father No problems noted. Brother CAD (coronary artery disease) Daughter No problems noted. Maternal Aunt Colon cancer Family history of problems with anesthesia: No Surgical History Surgical History History of repair of congenital atrial septal defect (ASD) History of left oophorectomy History of appendectomy History of open heart surgery History of Problems with Anesthesia: No Social History Social History Household Members: Spouse and Children Household Members Other:: daughter Housing: Apartment Alcohol intake: never Comment: social- rarely Patient Tobacco Use Status: Never used Tobacco e-Cigarette/Vaping Use: Never Used Second Hand Smoke Exposure: No Are you DNR?: No Advance Directives: No Advance Directives Information Provided: Yes Nutrition Risks: No Nutritional Risk FDLMP: 06/18/23 Current occupational status: employed Current occupation: [employer] Sexual orientation: Straight/Heterosexual Gender identity: Female Cognitive needs: No Hearing needs: No Vision needs: No Meds Allergies Allergy/AdvReac Type Severity Reaction Status Date / Time No Known Allergies Allergy Verified 06/19/23 10:38 Active Medications: Current Medications Lactated Ringer's (Lr) 1,000 mls @ 80 mls/hr IVCONT .[id number] [facility] Home Medications Medication Instructions Recorded Confirmed Last Taken Type vit no.95-ferrous 1 tab PO DAILY 04/24/23 06/19/23 Unknown History fumarate 28 mg-folic acid 800 mcg tablet () Exam Exam Date and Time: June 19, 2023 1040 Height,Weight and Vital Signs: Height 5 ft 6 in Weight 71.214 kg Last Vital Signs Temp 97.9 F 06/19/23 10:31 Pulse 99 06/19/23 10:31 Resp 18 06/19/23 10:31 BP 107/66 06/19/23 10:31 Pulse Ox 96 06/19/23 10:31 O2 Del Method Room Air 06/19/23 10:31 Pertinent Lab Results Pertinent Lab Results: Laboratory Tests 06/19/23 10:00 Urine Test NEGATIVE Airway Mallampati Class: I TM Dist: >3cm Neck ROM: Full Loose/Missing/Broken Teeth: Yes (missing molar left side) Heart: S1S2 Lungs: CTAB Assessment and Plan Assessment Anesthesia Assessment: Anesthesia Plan Discussed and Chart Reviewed Final Anesthetic Review Family History of Problems with Anesthesia: No History of Problems with Anesthesia: No NPO: Yes ASA Class: II Final Preanesthetic Review: No Changes in Pt Med Stat, Meds/Allgs Chart Reviewed, Consent Obtained/Reviewed and Anes Risks/Benef Reviewed Patient Risk: Low Procedure Risk: Low Anesthetic Plan Anesthetic Plan: MAC: and Agree w/ Assess. and Plan Disposition: Standard PACU
[2023-06-19] MEDS: Lactated Ringers 1,000 ML 80 ML IVCONT (11:19)
--- NOTE | 2023-06-19 12:08 | MHC.SHP ---
Pre-Procedural Eval Section A - 24 Hr Update-Section A only Date of Service: 06/19/23 Section B - Complete if H&P > 30 days Chief Complaint: Epigastric pain Relevant Family History (Specify if Yes): No Relevant Social History: None Present Medications: see Short Stay Collaborative assessment Medical History: Significant History (Palpitations) History of Previous Operations: Relevant previous surgery/procedure and date(s) (History of repair of congenital atrial septal defect (ASD) History of left oophorectomy History of appendectomy History of open heart surgery) Allergies: Allergies Allergy/AdvReac Type Severity Reaction Status Date / Time No Known Allergies Allergy Verified 06/19/23 10:38 Review of Systems Sugical H&P ROS: Negative: Constitution, Cardiovascular, Respiratory, Neurological, Psychiatric, Hem-Onc, Allergic/Immunologic, Gastrointestinal, Genitourinary, Musculoskeletal, Integumentary, Endocrine and Eyes/Ears/Nose/Throat Exam Surgical H&P Exam: Normal: HEENT, Normal: Heart, Normal: Lungs, Normal: Extremities, Normal: Abdomen, Normal: Skin and Normal: Neurological Plan Diagnosis/Plan: Unchanged I have reviewed the history and physical and performed a pertinent physical examination on my patient. No changes have occurred unless specified. Time Spent With Patient Time: Total time managing care of this patient today ____ minutes.
--- NOTE | 2023-06-19 12:09 | W.PM.OPN ---
Operative Note Operative Note Date of Service: 06/19/23 Narrative: Procedure Description: EGD Indication: epigastric pain Anesthesia: MAC FLEXIBLE TRANSORAL UPPER GASTROINTESTINAL ENDOSCOPY UPPER ENDOSCOPY Consent: Indications for the procedure and potential complications of bleeding, perforation, reaction to medications and missed diagnosis were discussed with the patient and informed consent was obtained. Instrument: Olympus GIF H 190 J mid size upper endoscope Monitoring: Vital signs and clinical assessment, continuous EKG monitoring, Pulse oximetry, Carbon Dioxide monitoring and blood pressure monitoring were done throughout the procedure. Procedure: The patient was placed in the left lateral decubitis position and pre-procedure medications were administered and a bite block was placed. The endoscope was inserted into the mouth and advanced under direct vision to the third part of duodenum. A careful inspection was made as the upper endoscope was withdrawn including a retroflexed examination of the proximal stomach; Findings and interventions are described below. Findings: Larynx:normal Esophagus: GE junction at 38 cm, diaphragm hiatus at 38 cm, bx taken from distal esophagus and GEJ in separate jars Stomach: patchy erythema . Biopsies were obtained. Grade 2 flap valve on retroflexed examination of the cardia. There was limited gastric motility noted. Duodenum: Normal bulb and descending duodenum, bx taken (stomach and duodenum samples ended up in the same jar) Intervention: Biopsies as noted above, Impression/Findings: gastritis possible gastroparesis PLAN: if bx neg then can consider GES, Us doppler to r/o celiac axis compression (MALS)
[2023-06-19 12:33] VITALS: BP 102/57; PULSE 94; RESP 18; TEMP 36.6; O2SAT 97
[2023-06-19 12:48] VITALS: BP 104/62; PULSE 80; RESP 18; O2SAT 98
== END 2023-06-19 13:01 | disposition home or self-care (01) ==
PROVIDERS: Anesthesiology; PCP Nurse Practitioner Family; Visit Provider Internal Medicine Gastroenterology
PROC: 0DJ08ZZ Inspection of Upper Intestinal Tract, Via Natural or Artificial Opening Endoscopic (ICD-10-PCS; CPT 43235; principal; 2023-06-19 12:50)
DX: K29.70 Gastritis, unspecified, without bleeding (principal); K21.9 Gastro-esophageal reflux disease without esophagitis; L29.0 Pruritus ani; R10.13 Epigastric pain; K58.9 Irritable bowel syndrome, unspecified
CPT/HCPCS: 43239; 81025; 88305; 88313; 88342; J2704

== ENCOUNTER → 2023-06-19 10:03 | Outpatient (BNV) | payer OTHER, SELFPAY | PROVIDERS: PCP Nurse Practitioner Family; Visit Provider Internal Medicine Gastroenterology | DX: K29.70 Gastritis, unspecified, without bleeding (principal) | CPT/HCPCS: 43239 ==

== ENCOUNTER 2023-07-05 12:54 | Outpatient (AMB) | payer OTHER, SELFPAY ==
--- NOTE | 2023-07-05 12:56 | A.OFFVIS_ITS ---
Intake Vital Signs 07/05/23 12:59 Height 5 ft 6 in Weight 160 lb 7.944 oz BMI 25.9 BP 118/66 Blood Pressure Location Lt brachial Position Sitting Pulse 77 Intake Visit Reasons: S/P EGD; Dr. Calero Intake Note: Aida presents in the office as a follow up EGD. CC: She states that everything is still the same as it was before. Allergies No Known Allergies Allergy (Verified 07/05/23 12:57) Medication List - Last Reconciled 07/05/23 by Angela Harris PA-C omeprazole 20 mg PO DAILY 30 days PNV cmb#95-ferrous fumarate-FA 28 mg iron- 800 mcg () 1 tab PO DAILY HPI HPI Comments History of Present Illness Details A 37-year-old female with multiple GI complaints follows up after EGD with bx biopsies reveal mild gastritis recommend a omeprazole for 6-8 We had previously did H pylori test which was negative Repeated labs for elevated liver enzymes liver enzymes normal She presents today-she tolerated procedure well Reviewed procedure report, pathology as well as recommendations She has been taking omeprazole 20 mg daily and notes some improvement in her symptoms. She occasionally will get epigastric discomfort she is unable to identify anything causes it. She does not drink or smoke she eats a healthy diet She has nausea 1 to 2 times a week-not associated to anything specific that she notes He has no vomiting, fever or chills PFSH Medical History (Updated 07/05/23 @ 13:34 by Angela Harris PA-C) Palpitations Surgical History History of esophagogastroduodenoscopy (EGD) Hx of colonoscopy History of repair of congenital atrial septal defect (ASD) History of left oophorectomy History of appendectomy History of open heart surgery Family History Mother No problems noted. Father No problems noted. Brother CAD (coronary artery disease) Daughter No problems noted. Maternal Aunt Colon cancer Social History Household Members: Spouse and Children Household Members Other:: daughter Housing: Apartment Alcohol intake: never Comment: social- rarely Patient Tobacco Use Status: Never used Tobacco e-Cigarette/Vaping Use: Never Used Second Hand Smoke Exposure: No Current occupational status: employed Current occupation: [employer] Sexual orientation: Straight/Heterosexual Gender identity: Female Cognitive needs: No Hearing needs: No Vision needs: No Female Reproductive History Menstrual Age of Menarche: 15 Review of Systems GI Reports nausea Physical Exam Vital Signs: Last Vital Signs Pulse 77 07/05/23 12:59 BP 118/66 07/05/23 12:59 BMI result Body Mass Index 25.9 Const General: cooperative, healthy appearing, comfortable and no acute distress Orientation/consciousness: patient oriented x3 Limitations: no limitations Eyes General: appearance normal, both eyes and all related structures Sclerae: sclerae normal Resp Effort & Inspection: normal respiratory effort and able to speak in complete sentences Neuro General: patient oriented x3 Extrem General: Yes full ROM Psych Appearance: grossly normal and well kempt Mental Status: mental status grossly normal Speech and movement: Normal speech and movement present and Clear speech present Affect: normal affect Attitude: cooperative Thought process: Normal thought process present Thought content: Normal thought content present Insight: Good insight present (Psych) Judgement: Good judgement present (Psych) Results Reviewed Results Reviewed: Impression/Findings: gastritis possible gastroparesis PLAN: if bx neg then can consider GES, Us doppler to r/o celiac axis compression (MALS) US/US abdomen limited IMPRESSION: A 3 mm echogenic focus in the right lobe of the liver possibly a tiny hemangioma or prominent periportal fat to small to definitively characterize. Otherwise unremarkable abdominal ultrasound. Assessment & Plan Assessment & Plan (1) IBS (irritable bowel syndrome): Comment: Very pleasant 37 y/o female- some improvement her sx- with omeprazole- Code(s): K58.9 - Irritable bowel syndrome without diarrhea Plan: she will continue ppi- (2) Nauseous: Comment: Discussed GES as well as Doppler ultrasound Code(s): R11.0 - Nausea Plan: Will hold off for now she will continue PPI Plan She will call or portal msg- any concerns Patient Instructions: She will call or portal msg- any concerns Coding Level of Care Code Est Pt Level 3 (37728) Diagnoses IBS (irritable bowel syndrome) K58.9 Nauseous R11.0 Time Spent (min) 18
[2023-07-05 12:59] VITALS: BP 118/66; PULSE 77; BMI 25.9
== END 2023-07-05 14:02 | disposition home or self-care (01) ==
PROVIDERS: PCP Nurse Practitioner Family; Visit Provider Physician Assistant
DX: K58.9 Irritable bowel syndrome, unspecified (principal); R11.0 Nausea
CPT/HCPCS: 99213

== ENCOUNTER → 2023-07-05 12:54 | Outpatient (BNVA) | payer OTHER, SELFPAY | PROVIDERS: PCP Nurse Practitioner Family; Visit Provider Physician Assistant ==

== ENCOUNTER 2023-08-14 07:59 | Outpatient (REF) | payer OTHER, SELFPAY ==
[2023-08-14 08:51] LABS: MANUAL DIFF FLAG NO
[2023-08-14 09:06] LABS: Basophils Percent Auto 0.6 % (0-2); Eosinophils Absolute Auto 0.1 X10*3/uL (0.0-0.4); Eosinophils Percent Auto 2.5 % (0-4); Hematocrit 37.9 % (37.0-47.0); Hemoglobin 12.7 g/dl (12.0-16.0); Imm Gran Abs Auto 0.01 X10*3/uL (0.00-0.03); Imm Gran Pct Auto 0.2 % (0.0-0.4); Lymphocytes Absolute Auto 1.8 X10*3/uL (1.2-4.9); Lymphocytes Percent Auto 36.2 % (20-40); Mean Corpuscular HGB Conc 33.5 g/dl (31.0-35.0); Mean Corpuscular Hemoglobin 28.9 pg (27.0-33.0); Mean Corpuscular Volume 86.3 fL (80.0-98.0); Mean Platelet Volume 9.9 fL (9.4-12.3); Monocytes Absolute Auto 0.4 X10*3/uL (0.1-1.2); Monocytes Percent Auto 7.2 % (2-11); Neutrophils Absolute Auto 2.6 x10*3/uL (2.0-8.3); Neutrophils Percent Auto 53.3 % (45-73); Platelet Count 226 X10*3/uL (160-400); Red Blood Count 4.39 X10*6/uL (4.20-5.50); Red Cell Distribution Width 13.1 % (11.0-16.0); White Blood Count 4.8 X10*3/uL (4.8-10.8)
[2023-08-14 09:51] LABS: Estimated Average Glucose 103 mg/dL; Hemoglobin A1c % 5.2 % (<6.0)
[2023-08-14 10:12] LABS: Syphilis Screen Nonreactive (Nonreactive)
[2023-08-14 10:20] LABS: Thyroid Stimulating Hormone 1.36 uIU/mL (0.32-4.0); Vitamin D 25-OH Total 24.6 ng/mL (>30)
[2023-08-14 10:21] LABS: HBsAGNum1 0.34 S/CO (0.00-0.99); HIV AB/AG Nonreactive (Nonreactive); HIV Num 1 0.04 S/CO (0.00-0.99); Hepatitis B Surface Antigen Negative (Negative); ~HepC Num1 0.08 S/CO (0.00-0.79); ~Hepatitis C Antibody Nonreactive (Nonreactive)
[2023-08-14 15:17] LABS: CT PCR NOT DETECTED (Not Detect.); NG PCR NOT DETECTED (Not Detect.)
[2023-08-15 07:08] LABS: Follicle Stimulating Hormone 5.8 mIU/mL; Lutenizing Hormone 2.5 mIU/mL; Prolactin 10.9 ng/mL
[2023-08-16 03:28] LABS: Rubella IgG Antibody 6.16 Index
[2023-08-20 07:23] LABS: Estradiol Ultra Sensitive 21 pg/mL
[2023-08-25 16:13] LABS: Anti-Mullerian Hormone-Female 2.06 ng/mL (0.36-10.07)
== END 2023-08-14 08:00 | disposition home or self-care (01) ==
LOC: HO.LAB 07:59
PROVIDERS: Visit Provider Obstetrics & Gynecology Reproductive Endocrinology
DX: Z31.41 Encounter for fertility testing (principal); Z11.59 Encounter for screening for other viral diseases; Z11.4 Encounter for screening for human immunodeficiency virus [HIV]
CPT/HCPCS: 0353U; 82166; 82306; 82670; 83001; 83002; 83036; 84146; 84443; 85025; 86762; 86780; 86803; 86850; 86900; 86901; 87340; 87389

== ENCOUNTER 2023-08-23 09:07 | Outpatient (AMB) | payer OTHER, SELFPAY ==
[2023-08-23 09:13] VITALS: BP 100/56; BMI 26.1
--- NOTE | 2023-08-23 09:13 | MHC.OFFVIS ---
Vital Signs 08/23/23 09:13 Height 5 ft 6 in Weight 162 lb BMI 26.1 BP 100/56 L Intake Visit Reasons: Annual Intake Note: Has been trying to conceive for a years. Carpenter'S Helper Required: No Information Interpreted: non-clinical & clinical Buckle Wire Inserter: Buckle Wire Inserter Present (Ki) Allergies No Known Allergies Allergy (Verified 08/23/23 09:18) Is last menstrual period known: Yes Last menstrual period: 08/13/23 Post menopausal: No HPI Comments Details: She is a premenopausal woman presenting for annual examination. Doing well with concerns: Trying to conceive over the last year. Her daughter is 4-1/2, she received services last but did conceive on her own spontaneously after the HSG procedure. Has a appointment later today with a [facility] services today, having a workup an HSG is scheduled later this afternoon. She reports an occasional right lower pelvic discomfort. She tries to eat healthy and stays active with exercise. Regular monthly menses. Currently is sexually active. She denies vaginal itching and irritation. STI screening is up-to-date. Denies family history of breast or ovarian FH colon cancer M. aunt. [facility] 2022[facility] Medical History Palpitations Surgical History (Updated 08/23/23 @ 09:20 by ALICE Rausch) Hx of endoscopy History of esophagogastroduodenoscopy (EGD) History of repair of congenital atrial septal defect (ASD) History of left oophorectomy History of appendectomy History of open heart surgery Family History Mother No problems noted. Father No problems noted. Brother CAD (coronary artery disease) Daughter No problems noted. Maternal Aunt Colon cancer Social History (Updated 08/23/23 @ 09:21 by ALICE Rausch) Household Members: Spouse and Children Household Members Other:: daughter Housing: Apartment Alcohol intake: current Alcohol intake frequency: holidays/special occasions only Comment: social- rarely Patient Tobacco Use Status: Never used Tobacco e-Cigarette/Vaping Use: Never Used Second Hand Smoke Exposure: No Current occupational status: employed Current occupation: [employer] Sexual orientation: Straight/Heterosexual Gender identity: Female Cognitive needs: No Hearing needs: No Vision needs: No Female Reproductive History Menstrual Age of Menarche: 15 Duration of menses: 6-7 days Date of last menstrual period: 08/13/23 control method: none Total pregnancies: 1 Full term: 1 Number of Living Children: 1 Date of last pap smear: 07/14/22 (negative) Review of Systems Const All systems reviewed & are unremarkable except as noted in HPI and below Reports as per HPI Eyes Reports no additional complaints ENT Reports no additional complaints Card Reports no additional complaints Resp Reports no additional complaints GI Reports as per HPI and Reports no additional complaints Reports as per HPI Musc Reports no additional complaints Skin/Breast Reports as per HPI Neuro Reports no additional complaints Psych Reports no additional complaints Endo Reports no additional complaints Harry/Lymph Reports no additional complaints Aller/Immun Reports no additional complaints Physical Exam Vital Signs: Last Vital Signs BP 100/56 L 08/23/23 09:13 BMI result Body Mass Index 26.1 Const General: cooperative, healthy appearing, no acute distress, well developed and alert Orientation/consciousness: patient oriented x3 HEENT Head: Yes normal to inspection Eyes General: appearance normal, both eyes and all related structures Neck Neck: Yes normal visual inspection Thyroid: Thyroid normal Chest Other: Scar Chest palpation & inspection: normal inspection of the chest and other (no puckering, dimpling, peau de orange, retraction, discharge, masses) Breast/axilla inspection: normal inspection of the breasts Breast/axilla palpation: normal palpation of the breasts Resp Effort & Inspection: normal respiratory effort GI Inspection: Yes normal to inspection Palpation (GI): Soft to palpation Rectal Exam - Female: deferred General: Yes bladder normal to palpation External Female Exam: normal external appearance and normal appearance of the urethra Speculum Exam - Vagina: normal appearance of the vagina, normal palpation and normal vaginal discharge Speculum Exam - Cervix: normal appearance of the cervix and normal palpation Bimanual exam- vagina & uterus: normal bimanual exam, normal palpation, uterine size normal, bladder normal to palpation, normal palpation and non-tender Bimanual Exam- Adnexa, other: no masses Skin General skin exam: no rashes or lesions noted Rashes: no rashes Neuro General: patient oriented x3 Cognition (Neuro): normal cognition Extrem General: Yes normal to inspection Psych Attitude: cooperative Thought process: Normal thought process present Assessment & Plan Assessment & Plan (1) Encounter for well woman exam with routine gynecological exam: Code(s): Z01.419 - Encounter for gynecological examination (general) (routine) without abnormal findings Plan Discussed: Current recommendations for pap smears per ASCCP guidelines. Breast awareness and periodic breast exams. Maintain a healthy lifestyle including a well balanced diet and routine exercise. Continue with vitamins and folic acid. Follow up with [facility] ultrasound today if needing any other care follow up to call the office. Patient verbalizes understanding and agrees to the plan of care. She was given opportunity to ask questions and all questions were answered to the best of my ability. RTO in one year for annual aoc operations intelligence officer examination. This note is constructed using voice recognition software. While every effort has been made to ensure accuracy, preschool disability teacher errors may have been included. Coding Level of Care Code Est Pt Prev Care 18-39y(86460) Diagnoses Encounter for well woman exam with routine gynecological exam Z01.419
== END 2023-08-23 09:46 | disposition home or self-care (01) ==
LOC: HO.HWS 09:07
PROVIDERS: Visit Provider Advanced Practice Midwife
DX: Z01.419 Encounter for gynecological examination (general) (routine) without abnormal findings (principal)
CPT/HCPCS: 99395

== ENCOUNTER → 2023-08-23 09:07 | Outpatient (BNVA) | payer OTHER, SELFPAY | PROVIDERS: Visit Provider Advanced Practice Midwife ==

== ENCOUNTER 2024-08-26 10:02 | Outpatient (AMB) | payer OTHER, SELFPAY ==
--- NOTE | 2024-08-26 10:11 | A.OFFVIS_ITS ---
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 Hoping for a future . Previously did not want to have IVF. Had [facility] [place] [place] for pelvic pain last year. At that time she was not having the pain she currently is experiencing. Was told she had endometrioisis when seen in [place]. She reports pain increasing day 4 of cycle until ovulation, thoughout pelvis and upper abdomen. Tylenol, helps slightly. Regular monthly menses x 7, now having additional spotting x3d. Currently is sexually active. She denies vaginal itching or irritation. She tries to eat healthy and stays active with exercise. Denies family history of breast or ovarian. FH colon cancer. Last pap smear 2022, negative. [facility] Medical History Pelvic pain Palpitations Surgical History Hx of endoscopy History of esophagogastroduodenoscopy (EGD) History of repair of congenital atrial septal defect (ASD) History of left oophorectomy History of appendectomy History of open heart surgery Family History Mother No problems noted. Father No problems noted. Brother CAD (coronary artery disease) Daughter No problems noted. Maternal Aunt Colon cancer Social History Household Members: Spouse and Children Household Members Other:: daughter Housing: Apartment Alcohol intake: current Alcohol intake frequency: holidays/special occasions only Comment: social- rarely Patient Tobacco Use Status: Never used Tobacco e-Cigarette/Vaping Use: Never Used Second Hand Smoke Exposure: No Current occupational status: employed Current occupation: [employer] Sexual orientation: Straight/Heterosexual Gender identity: Female Cognitive needs: No Hearing needs: No Vision needs: No Female Reproductive History Menstrual Age of Menarche: 15 Duration of menses: 6-7 days Date of last menstrual period: 08/09/24 control method: none Total pregnancies: 1 Full term: 1 Number of Living Children: 1 Date of last pap smear: 07/03/22 (neg pap and hpv) Review of Systems Const All systems reviewed & are unremarkable except as noted in HPI and below Reports as per HPI Eyes Reports no additional complaints ENT Reports no additional complaints Card Reports no additional complaints Resp Reports no additional complaints GI Reports as per HPI and Reports no additional complaints Reports as per HPI Musc Reports no additional complaints Skin/Breast Reports as per HPI Neuro Reports no additional complaints Psych Reports no additional complaints Endo Reports no additional complaints Harry/Lymph Reports no additional complaints Aller/Immun Reports no additional complaints Physical Exam Vital Signs: Last Vital Signs BP 102/58 L 08/26/24 10:12 BMI result Body Mass Index 26.8 Const General: cooperative, healthy appearing, no acute distress, well developed and alert Orientation/consciousness: patient oriented x3 HEENT Head: Yes normal to inspection Eyes General: appearance normal, both eyes and all related structures Neck Neck: Yes normal visual inspection Thyroid: Thyroid normal Chest Chest palpation & inspection: normal inspection of the chest and other (no puckering, dimpling, peau de orange, retraction, discharge, masses) Breast/axilla inspection: normal inspection of the breasts Breast/axilla palpation: normal palpation of the breasts Resp Effort & Inspection: normal respiratory effort GI Inspection: Yes normal to inspection and Yes scar Palpation (GI): Soft to palpation Rectal Exam - Female: deferred General: Yes bladder normal to palpation External Female Exam: normal external appearance and normal appearance of the urethra Speculum Exam - Vagina: normal appearance of the vagina, normal palpation and normal vaginal discharge Speculum Exam - Cervix: normal appearance of the cervix and normal palpation Bimanual exam- vagina & uterus: normal bimanual exam, normal palpation, uterine size normal, bladder normal to palpation, normal palpation and non-tender Bimanual Exam- Adnexa, other: no masses Skin General skin exam: no rashes or lesions noted Rashes: no rashes Neuro General: patient oriented x3 Cognition (Neuro): normal cognition Extrem General: Yes normal to inspection Psych Attitude: cooperative Thought process: Normal thought process present Results AMB Urinalysis, Automated UA Leukoctes 0 Claudio/uL Last Edit by Loraine Toribioanastasia [facility] on 08/26/24 10:54 UA Nitrite Negative Last Edit by Loraine Toribioanastasia [facility] on 08/26/24 10:54 UA Urobilinogen 0 mg/dL Last Edit by Loraine Marlow [facility] on 08/26/24 10:5 4 UA Protein 0 mg/dL Last Edit by Loraine Lita Maluanastasia [facility] on 08/26/24 10:54 UA pH 6.0 Last Edit by Loraine Toribioanastasia [facility] on 08/26/24 10:54 UA Blood 0 Adam/uL Last Edit by Loraine Lita Maluanastasia [facility] on 08/26/24 10:54 UA Specific [place] 1.010 Last Edit by Loraine Toribioanastasia [facility] on 08/26/24 10:54 UA Ketone Negative Last Edit by Loraine Lita Maluanastasia [facility] on 08/26/24 10:54 UA Bilirubin 0 mg/dL Last Edit by Loraine Toribioanastasia [facility] on 08/26/24 10:54 UA Glucose 0 mg/dL Last Edit by Loraine Lawsaubrey [facility] on 08/26/24 10:54 Assessment & Plan Assessment & Plan (1) Encounter for well woman exam with routine gynecological exam: Code(s): Z01.419 - Encounter for gynecological examination (general) (routine) without abnormal findings Category: Medical Plan: Discussed: Current recommendations for pap smears per ASCCP guidelines. Breast awareness and periodic breast exams. Maintain a healthy lifestyle including a well balanced diet and routine exercise. Refill for vitamins sent in. Patient verbalizes understanding and agrees to the plan of care. She was given opportunity to ask questions and all questions were answered to the best of my ability. 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 This note is constructed using voice recognition software. While every effort has been made to ensure accuracy, rotor pilot errors may have been included. (2) Pelvic pain: Code(s): R10.2 - Pelvic and perineal pain Category: Medical Plan Workup for pelvic pain to include pelvic ultrasound, cervical cultures and urine dip. Await results for plan of care. Patient to plan a follow up with Dr. Seth Tafoya for consult. The patient expressed understanding and agreement with the plan of care. All of her questions and concerns were addressed to the best of my ability. Total time I personally spent on visit and management today: ?15 minutes. Time spent included review of pertinent office notes in the electronic health record; review of laboratory and imaging results; review of personal family medical history; performing physical exam; discussing diagnosis and plan of care with the patient; documenting the encounter in the EMR. This note is constructed using voice recognition software. While every effort has been made to ensure accuracy, rotor pilot errors may have been included. Orders: Orders Bacterial Vaginosis Panel Today R10.2 - Pelvic and perineal pain CT NG by PCR Today R10.2 - Pelvic and perineal pain AMB Urinalysis Automated Today R10.2 - Pelvic and perineal pain US pelvic and transvaginal Today R10.2 - Pelvic and perineal pain Medications: New PNV,calcium 55-nzzg-vysze acid 27 mg iron- 1 mg ( Vitamins Plus Low Iron) 1 tab PO DAILY 90 tabs 4RF Coding Level of Care Code Est Pt Level 2 (95567) Est Pt Prev Care 18-39y(60163) Diagnoses Encounter for well woman exam with routine gynecological exam Z01.419 Pelvic pain R10.2
[2024-08-26 10:12] VITALS: BP 102/58; BMI 26.8
--- OUTSIDE RECORDS SUMMARY | 2024-08-26 10:56 | XMS_ITS ---
Author Name [facility] Organization Unknown History of Medication Use Medication Directions Dispensed Refills Start Date End Date Stat us amoxicillin-clavu lanate (AUGMENTIN) 500-125 mg per tablet Take 1 tablet by mouth 2 (two) times a day for 7 days. 08/11/2024 active mupirocinApply 1 Application (topical) 2 times per day for 7 [id number] times per [id number] 2% 06/11/2023 active amoxicillinTake 1 Capsule (oral) 2 times per day for 10 [id number] times per [id number] d500MG 08/14/2022 suspended doxycycline hyclate 100 mg capsule 4 completed famotidine 20 mg tablet 4 completed MV-Min-Fe Fum-FA-DHA ( 1 PO) Take by mouth. activ e Problems Problem Status Onset Date Problem Type Date of Resolution Source Diffuse otitis externa active 2024-08-11 ProblemAct [facility] Acute diffuse otitis externa of left ear active EncounterDiagnosisAct [facility] Rash and other nonspecific skin eruption active 2023-06-11 ProblemAct [facility] Chronic serous otitis media, bilateral active EncounterDiagnosisAct [facility] Perioral dermatitis active 2024-01-23 ProblemAct [facility] Chronic otitis externa active 2024-01-23 ProblemAct [facility] History of repair of congenital atrial septal defect (ASD) active 2024-01-23 ProblemAct [facility] Overweight (BMI 25.0-29.9) active 2024-01-23 ProblemAct [facility] Immunizations Vaccine Date Source Lot Number Status Influenza Quadrivalent, 0.5m l, preservative free (Fluarix; FluLaval; Fluzone) ages 6mo and older (Afluria) 3yo and older 01/18/2024 [facility] completed Encounters Encounter Type Encounter Reason Primary Diagnosis Location Date Ambulatory Follow-up Follow-up [facility] 08/11/2024 Ambulatory Polyp of corpus uteri Polyp of corpus uteri [facility] 03/06/2024 Ambulatory Polyp of corpus uteri Polyp of corpus uteri [facility] 03/06/2024 Ambulatory Overweight Overweight [facility] 01/23/20 Ambulatory Overweight Overweight [facility] 01/23/2024 Ambulatory Polyp of corpus uteri Polyp of corpus uteri [facility] 01/15/2024 Ambulatory Polyp of corpus uteri Polyp of corpus uteri [facility] 01/15/2024 Ambulatory Pelvic and perineal pain Pelvic and perineal pain [facility] 12/19/2023 Ambulatory Endometriosis of ovary, unspecified side, unspecified depth Endometriosis of ovary, unspecified side, unspecified depth [facility] 11/21/2023 Ambulatory no current diagnosis no current diagnosis [facility] 10/30/2023 Ambulatory [facility] 07/03/2023 Care Team Organization Name Specialty Phone Email Start Date End Da te [facility] 02/25/2024 [facility] 02/23/2024 [facility] 2023 [facility] Primary Care 1 [facility] 11/05/2023 [facility] 11/02/2023 [facility] NO PROVIDER Primary Care 06/11/2023 [facility] NO PROVIDER Primary Care 06/11/2023
--- OUTSIDE RECORDS SUMMARY | 2024-08-26 10:56 | XMS_ITS | Clinical Summary ---
Author Organization [facility] Address [address] [place] [address] Care Team Providers Care Aviation Medicine Specialist Name Role Phone Pcp, No Primary Care Provider Unavailabl e Medications Fluocinolone Acetonide 0.01 % OilIndications: Chronic serous otitis media, bilateral PLACE 4 DROP(S) IN EACH AFFECTED EAR TWICE DAILY FOR 7 DAYS 20 each 1 03/10/2024 Active Encounters Date Type Department Care Team Description 08/11/2024 Telephone [facility] [address] [place] [address] Xavi Esteban MD from Last 3 Months Social History Tobacco Use Types Packs/Day Years Used Date Smoking Tobacco: Never Assessed Comments Unknown Sex and Gender Information Value Date Recorded Sex Assigned at Not on file Legal Sex Female 3:43 PM EDT Gender Identity Not on file Sexual Orientation Not on file Plan of Treatment Health Maintenance Due Date Last Done Comments Hepatitis C Virus Screening 1987 HIV Screening 11/05/2000 DTaP/Tdap/Td Vaccines (1 - Tdap) 11/05/2006 Hepatitis B Vaccines (1 of 3 - 19+ 3-dose series) 11/05/2006 Pap Smear (Ages 21-65) 11/05/2008 COVID-19 Vaccine ( - 2023-2 5 season) 2023 Influenza Vaccine 11/14/2024 HPV Vaccines Aged Out No longer eligi ble based on patient's age to complete this topic Pneumococcal Vaccine: Pediat jasper (0-5 Years) and At-Risk Patients (6 to 49 Years) Aged Out No longer eligible b ased on patient's age to complete this topic Insurance [facility] Care Teams Aviation Medicine Specialist Relationship Specialty Start Date End Date Pcp, No [address] [place] [id number] PCP - General 10/06/22
--- OUTSIDE RECORDS SUMMARY | 2024-08-26 10:56 | XMS_ITS | Clinical Summary ---
Author Organization [facility] [address] Building Address [address] [place] [address] Phone Care Team Providers Care Artistic Associate Name Role Phone Eliza Stark MD Primary Care Provider [phone] Allergies No known active allergies Medications amoxicillin-cla vulanate (AUGMENTIN) 500-125 mg per tablet Take 1 tablet by mouth 2 (two) times a day for 7 days. 14 each 08/11/2024 Active Problems Problem Noted Date Diagnosed Date Diffuse otitis externa 08/11/2024 Assessment & Plan (08/11/2024 12:26 PM EDT): - Symptoms: itching, burning, swelling of the outer ear, no fluid discharge or fever - History of chronic otitis externa, using prescribed steroid drops monthly - Examination: swollen outer ear, blocked ear canal, tympanic membrane with what appears to be a middle ear effusion - Using triple antibiotic ointment on outer ear with some improvement - Prescription for oral antibiotic to be sent to [facility] pharmacy for diffuse otitis externa, I suspect otitis media as well given TM findings. Will have her trial augmentin wit some pseudomonas coverage. - Advise to continue avoiding water in ears - Follow up with ENT specialist as soon as possible Encounters Date Type Department Care Team Description 08/11/2024 11:30 AM EDT Office Visit [facility] [address] [place] [address] Eliza Stark MD Acute diffuse otitis externa of left ear (Primary Dx) from Last 3 Months Immunizations Name Administration Dates Next Due Influenza Quadrivalent, 0.5m l, preservative free (Fluarix; FluLaval; Fluzone) ages 6mo and older (Afluria) 3yo and older 01/18/2024 Surgical History Surgery Date Site/Laterality Comments APPENDECTOMY PROCEDURE:APPENDECTOMY CARDIAC SURGERY PROCEDURE:CARDIAC SURGERY Medical History Medical History Date Comments Heart murmur DX:Heart murmur Family History Medical History Relation Name Comments Coronary artery disease Brother Hypertension Father Thyroid cancer Maternal Grandmother Relation Name Status Comments Brother Father Maternal Grandmother Social History Tobacco Use Types Packs/Day Years Used Date Smoking Tobacco: Never Smokeless Tobacco: Never Alcohol Use Standard Drinks/Week Comments Yes 0 (1 standard drink = 0.6 oz pur e alcohol) Comments Unknown Sex and Gender Information Value Date Recorded Sex Assigned at Not on file Legal Sex Female 1:48 PM EDT Gender Identity Not on file Sexual Orientation Not on file Obstetrics History Last Filed Vital Signs Vital Sign Reading Time Taken Comments Blood Pressure 106/60 08/11/2024 11:36 AM EDT Pulse 63 08/11/2024 11:36 AM EDT Temperature 36.8 ??C (98.2 ??F) 08/11/2024 11:36 AM E DT Respiratory Rate - - Oxygen Saturation 97% 08/11/2024 11:36 AM EDT Inhaled Oxygen Concentration - - Weight 75.8 kg (167 lb) 08/11/2024 11:36 AM EDT Height 167.6 cm (5' 6 ) 08/11/2024 11:36 AM EDT Body Mass Index 26.95 08/11/2024 11:36 AM EDT Plan of Treatment Upcoming Encounters Date Type Department Care Team (Late st Contact Info) Description 01/28/2025 8:30 AM EDT Office Visit [facility] Medicine - [facility] [address] [place] [address] Eliza Stark MD [address] [place] [address] Health Maintenance Due Date Last Done Comments Hepatitis B Vaccines (1 of 3 - 19+ 3-dose series) 11/05/2006 COVID-19 Vaccine (1 - 2023-2 5 season) 2023 HIV Screening 02/10/2024 Social Influencers of Health Screening 02/10/2024 Cervical Cancer Screening: HPV 10/26/2024 10/27/2019 Depression Screening 08/11/2025 08/11/2024 DTaP,Tdap,and Td Vaccines (2 - Td or Tdap) 09/13/2028 09/13/2018 Cholesterol Screening (Lipid Panel) 01/22/2029 01/23/2024, 01/23/2024 Influenza Vaccine Completed 01/18/2024 Hepatitis C Screening Completed 01/23/2024 , 11/29/2018 HIB Vaccines Aged Out No longer eligi ble based on patient's age to complete this topic HPV Vaccines Aged Out No longer eligi ble based on patient's age to complete this topic Hepatitis A Vaccines Aged Out No long er eligible based on patient's age to complete this topic IPV Vaccines Aged Out No longer eligi ble based on patient's age to complete this topic MMR Vaccines Aged Out No longer eligi ble based on patient's age to complete this topic Meningococcal ACWY Vaccine Aged Out N o longer eligible based on patient's age to complete this topic Meningococcal B Vaccine Aged Out No l onger eligible based on patient's age to complete this topic Pneumococcal Vaccine: Pediatrics (0 to 5 Years) and At-Risk Patients (6 to 64 Years) Aged Out No longer eligible b ased on patient's age to complete this topic RSV Immunization Patients Under 20 months Aged Out No longer eligible b ased on patient's age to complete this topic Varicella Vaccines Aged Out No longer eligible based on patient's age to complete this topic Insurance [facility] Care Teams Artistic Associate Relationship Specialty Start Date End Date Eliza Stark MD [address] [place] [address] PCP - General 01/28/24
--- OUTSIDE RECORDS SUMMARY | 2024-08-26 10:56 | XMS_ITS | Clinical Summary ---
Author Organization [facility] Address [address] [place] [address] Care Team Providers Care Basketball Commentator Name Role Phone Rika Kurtz ZENOBIA Primary Care Provider [phone] Source Comments PLEASE NOTE, if this patient is a minor, it may be UNLAWFUL to discuss sensitive information that is contained in these records (such as FAMILY PLANNING, MENTAL HEALTH or SUBSTANCE ABUSE) with the minor patient's parent or other person without the patient's specific authorization.[facility] Allergies No known active allergies Encounters Date Type Department Care Team Description 08/06/2024 1:00 PM EDT Office Visit [facility] [address] [place] [phone] Cherise Frost RHD Encounter for dental examination (Primary Dx); Abfraction; Caries; Defective dental yazidism; Chronic gingivitis, plaque induced from Last 3 Months Social History Tobacco Use Types Packs/Day Years Used Date Smoking Tobacco: Never Smokeless Tobacco: Never Tobacco Cessation:Counseling Given: Not Answered Comments Unknown Sex and Gender Information Value Date Recorded Sex Assigned at Not on file Legal Sex Female 7:53 AM PDT Gender Identity Not on file Sexual Orientation Not on file Last Filed Vital Signs Vital Sign Reading Time Taken Comments Blood Pressure 121/74 08/06/2024 1:06 PM EDT Pulse 73 08/06/2024 1:06 PM EDT Temperature - - Respiratory Rate - - Oxygen Saturation - - Inhaled Oxygen Concentration - - Weight - - Height - - Body Mass Index - - Plan of Treatment Upcoming Encounters Date Type Department Care Team ([facility] Contact Info) Description 08/27/2024 11:00 AM EDT Office Visit [facility] [address] [place] [phone] [place], [place], DMD [address] [place] [address] 09/10/2024 9:00 AM EDT Office Visit [facility] [address] [place] [phone] [place]o, DMD [address] [place] [address] 02/11/2025 10:20 AM EDT Office Visit [facility] [address] [place] [phone] Cherise Frost, RHD [address] [place] [address] Health Maintenance Due Date Last Done Comments Anxiety Screening 1987 Dental Perio Charting 1987 HPV Screening 1987 Pap + HPV 1987 Tobacco Screening 1987 Relationship Safety Screening/Counseling 11/05/2002 Imm-Hepatitis B (1 of 3 - 19 + 3-dose series) 11/05/2006 Cervical Cancer Screening 11/05/2008 Pap Smear 11/05/2008 [id number] ( season) 2023 021, 08/18/2020 Alcohol and Drug Screen 04/16/2024 Depression Annual Screen 04/16/2024 Dental BW 08/08/2025 08/06/2024 Dental Examination 08/08/2025 08/06/2024 Dental Prophy 08/08/2025 08/06/2024 Diabetes Screening 01/22/2027 01/23/2024, 1 , 01/23/2024 Hypertension Screening (#1) 08/06/2027 Dental FMX/Pano 08/08/2029 08/06/2024 Imm-DTaP/Tdap/Td (3 - Td or Tdap) 03/22/2030 020, 09/13/2018 HIV Screening Completed 07/17/2018 Imm-Influenza Completed 01/18/2024 Hepatitis C Screening Completed 01/23/2024 , 01/23/2024, 11/29/2018 Cervical Ablation/Cold-Knife Conization Discontinued Cervical Cryotherapy Discontinued Colposcopy Discontinued Endometrial Biopsy Discontinued Excision/Leep Discontinued HPV Genotyping Discontinued Vaginal Pap Discontinued Vulvoscopy Discontinued Procedures Procedure Name Priority Date/Time Associated Diagnosis Comments DENTAL CASE MANAGEMENT - MOTIVATIONAL INTV Routine 08/06/2024 1:00 PM EDT Abfraction Caries Encounter for dental examination PROPHYLAXIS - ADULT Routine 08/06/2024 1 :00 PM EDT Abfraction Caries Encounter for dental examination INTRAORAL - COMP SERIES OF RADIOGRAPHIC IMAGES Routine 08/06/2024 1:00 PM EDT Abfraction Caries Defective dental yazidism Encounter for dental examination COMP ORAL EVALUATION - NEW/ESTABLISHED PATIENT Routine 08/06/2024 1:00 PM EDT Caries Encounter for dental examination CARIES RISK ASSESSMENT & DOC FINDING HIGH RISK Routine 08/06/2024 1:00 PM EDT Abfraction Caries Encounter for dental examination NUTRITIONAL COUNSELING CONTROL OF DENTAL DISEASE Routine 08/06/2024 1:00 PM EDT Abfraction Caries Encounter for dental examination ORAL HYGIENE INSTRUCTIONS Routine 08/06/2024 1:00 PM EDT Abfraction Caries Encounter for dental examination ORAL CANCER SCREENING Routine 08/06/2024 1:00 PM EDT Abfraction Caries Encounter for dental examination CASE PRESENTATION SUBS DTL & EXTENSIVE TX PLN Routine 08/06/2024 1:00 PM EDT Encounter for dental examination 10 M COMPOSITE - WISDOM (NON BILLABLE) Routine 08/06/2024 12:00 AM EDT 30 MOD COMPOSITE - WISDOM (NON BILLABLE) Routine 08/06/2024 12:00 AM EDT 29 DO COMPOSITE - WISDOM (NON BILLABLE) Routine 08/06/2024 12:00 AM EDT 31 MO COMPOSITE - WISDOM (NON BILLABLE) Routine 08/06/2024 12:00 AM EDT 21 DO COMPOSITE - WISDOM (NON BILLABLE) Routine 08/06/2024 12:00 AM EDT 20 MOD COMPOSITE - WISDOM (NON BILLABLE) Routine 08/06/2024 12:00 AM EDT 19 MOD COMPOSITE - WISDOM (NON BILLABLE) Routine 08/06/2024 12:00 AM EDT 16 MO COMPOSITE - WISDOM (NON BILLABLE) Routine 08/06/2024 12:00 AM EDT 15 MO COMPOSITE - WISDOM (NON BILLABLE) Routine 08/06/2024 12:00 AM EDT 14 MOD COMPOSITE - WISDOM (NON BILLABLE) Routine 08/06/2024 12:00 AM EDT 13 MOD COMPOSITE - WISDOM (NON BILLABLE) Routine 08/06/2024 12:00 AM EDT 12 O COMPOSITE - WISDOM (NON BILLABLE) Routine 08/06/2024 12:00 AM EDT 9 MDL COMPOSITE - WISDOM (NON BILLABLE) Routine 08/06/2024 12:00 AM EDT 2 O COMPOSITE - WISDOM (NON BILLABLE) Routine 08/06/2024 12:00 AM EDT 8 MIFL COMPOSITE - WISDOM (NON BILLABLE) Routine 08/06/2024 12:00 AM EDT 3 MO COMPOSITE - WISDOM (NON BILLABLE) Routine 08/06/2024 12:00 AM EDT 8 ROOT CANAL - WISDOM (NO BILLABLE) Routine 08/06/2024 12:00 AM EDT from Last 3 Months Insurance [facility] Member Subscriber Plan / Payer (Ef fective 2020-Present) Name:Mabel Rawls Relation to Subscriber:Self Name:Mabel Rawls Payer ID:[id number] Type:[employer] Address: [address] [place] [address] DENTAL Care Teams Basketball Commentator Relationship Specialty Start Date End Date Rika Kurtz FNP [address] [place] [address] PCP - General Internal Medicine 01/19/21
--- OUTSIDE RECORDS SUMMARY | 2024-08-26 10:56 | XMS_ITS | Clinical Summary ---
Author Organization [facility] Address [address] [place] [address] Care Team Providers Care Pipe Stem Repairer Name Role Phone Eliza Stark MD Primary Care Provider Unavaila ble Medications Medication Sig Dispensed Refills Start Date End Date Status MV-Min-Fe Fum-FA-DHA ( 1 PO) Take by mouth. 0 Active Active Problems Problem Noted Date Diagnosed Date History of repair of congenital atrial septal de fect (ASD) 01/23/2024 01/23/2024 Annual physical exam 01/23/2024 Last Assessment & Plan: Is a 38-year-old female with past medical history of atrial septal defect status post repair, chronic otitis externa, history of infertility, perioral dermatitis who presents to establish care and for annual physical. Vital signs within normal limits. Physical exam notable for irritated and dry right ear canal. She is up-to-date with cervical cancer screening Up-to-date with influenza vaccine which he receives at work Overweight (BMI 25.0-29.9) 01/23/2024 Last Assessment & Plan: BMI counseling done today. Advised on increasing physical activity and discussed dietary modifications including decreasing sweets. Follow-up TSH Perioral dermatitis 01/23/2024 Last Assessment & Plan: Sees a bakelite molder every 6 months who has recommended Flagyl and tacrolimus. Asking today for further recommendations, advised patient to follow-up with dermatology. Chronic otitis externa 01/23/2024 Last Assessment & Plan: Follows with ENT, she has been prescribed antibiotic drops but does not recall name of medication. On exam, right ear canal noted to be irritated and with dry skin Continue to follow-up with ENT Immunizations Name Administration Dates Next Due Influenza Quad (Fluarix/Fluz one/FluLaval) 0.5mL (SD-IIV4) 01/18/2024 Family History Medical History Relation Name Comments Coronary artery disease Brother Hypertension Father Thyroid cancer Maternal Grandmother Relation Name Status Comments Brother Father Maternal Grandmother Social History Tobacco Use Types Packs/Day Years Used Date Smoking Tobacco: Never Smokeless Tobacco: Never Tobacco Cessation:Counseling Given: Not Answered Alcohol Use Standard Drinks/Week Comments Yes 0 (1 standard drink = 0.6 oz pur e alcohol) Sex and Gender Information Value Date Recorded Sex Assigned at Female 12/26/2023 1:46 PM EDT Gender Identity Not on file Sexual Orientation Not on file Job Start Date Occupation Industry Not on file Not on file Not on file Last Filed Vital Signs Vital Sign Reading Time Taken Comments Blood Pressure 124/76 01/23/2024 9:02 AM EDT Pulse 92 01/23/2024 9:02 AM EDT Temperature 36.8 ??C (98.2 ??F) 01/23/2024 9:02 AM ED T Respiratory Rate - - Oxygen Saturation 97% 01/23/2024 9:02 AM EDT Inhaled Oxygen Concentration - - Weight 74.4 kg (164 lb) 01/23/2024 9:02 AM EDT Height 167.6 cm (5' 6 ) 01/23/2024 9:02 AM EDT Body Mass Index 26.47 01/23/2024 9:02 AM EDT Plan of Treatment Health Maintenance Due Date Last Done Comments Hepatitis B Vaccines (1 of 3 - 3-dose series) 1987 COVID-19 Vaccine (#1) 05/08/1988 BMI Counseling 11/05/2005 DTap / Tdap / Td (1 - Tdap) 11/05/2006 Cervical Cancer Screening (Pap Smear) 11/05/2008 Depression Screening 01/22/2025 01/23/2024 Preventative Health Evaluation 01/22/2025 01/23/2024, 01/23/2024 Influenza Vaccine Completed 01/18/2024 Hepatitis C Screening Completed 01/23/2024 Pneumococcal Vaccine Aged Out No long er eligible based on patient's age to complete this topic RSV Ped < 20 months Aged Out No longe r eligible based on patient's age to complete this topic Care Teams Pipe Stem Repairer Relationship Specialty Start Date End Date Eliza Stark MD PCP - General Family Medicine 01/23/24
--- OUTSIDE RECORDS SUMMARY | 2024-08-26 10:56 | XMS_ITS | Data Portability ---
Author Organization [place] [facility], [facility] Address [address] [place] [address] Assessment No assessment recorded. Plan of Treatment Reminders Order Date Submit Date Provider Last Modified By Organization Details Last Modified Time Details Appointments None recorded. Lab test, urine 2023 024 [email or web address] In-Office Order, Internal Use Only DO Not Attach Compendium DO Not Attach Compendium, Do Not Delete/merge, [id number] 16:12:09 Referral None recorded. Procedures None recorded. Surgeries None recorded. Imaging None recorded. Medication Orders None recorded. Patient TargetsNo targets recorded. Patient Instructions Encounter Date Encounter Id Patient Instructions Last Modified By Organization Details Last Modified Time 10/30/2023 [id number] infertility: car e instructions [email or web address] Not available 11/08/2023 19:59:43 Reason for Referral None Reported. Results Created Date Observation Date Name Description Value Unit Range Abnormal Flag Note LastModifiedBy Organization Detail LastModifiedTime 03/06/20 24 03/06/2024 pregn abbey test, urine Result negati ve Not Available In-Office Order Internal Use Only DO Not Attach Compendium DO Not Attach Compendium, Do Not Delete/merge, [id number] 03/06/2024 14:07:34 11/21/19 24 11/21/2023 US, trans vagin al RAD [id number] [facility] [address], [place], [address], 12/18/2023 07:45:09 03/06/20 24 03/06/2024 US, salin e infus ed uteru s RAD [id number] [facility] [address], [place], [address], 03/07/2024 16:23:07 Result Notes None recorded. Problems No Known Problems Procedures Surgical History Date Name Laterality Status Provider Name and Address Organization Details Recorded Time 03/06/20 24 Saline Infusion Sonogram (SIS) completed REBECCA SANTILLAN, DO [address] [facility], [address]rd Floor, [place], [address], [place] [facility] 03/06/2024 14:05:45 05/26/19 Oophorectomy completed [facility] 10/30/2023 14:17:43 05/26/19 19 Ovarian Cystectomy completed [facility] 10/30/2023 14:17:43 08/24/19 07 Appendectomy completed [facility] 10/30/2023 14:17:43 02/24/19 99 Cardiac Surgery completed [facility] 10/30/2023 14:17:43 Imaging Results Imaging Date Name Status LastModified by Organization Details LastModified Time 11/21/2023 US, transvaginal completed [email or web address] [facility] [address] [place], [address], 12/18/2023 07:45:09 03/06/2024 US, saline infused uterus completed [email or web address] [facility] [address] [place], [address], 03/07/2024 16:23:07 Procedure Notes None recorded. Medical Equipment None Reported. Allergies No known drug allergies Medications Name Sig Start Date Stop Date Status Note LastModified by Organization Details LastModified Time doxycycline hyclate 100 mg capsule 10/29 completed Not Available Not Available Not Available triamcinolo ne acetonide 0.1 % topical cream 10/29 completed Not Available Not Available Not Available famotidine 20 mg tablet 10/29 completed Not Available Not Available Not Available tacrolimus 0.03 % topical ointment Apply TO affected AREAS of red irritated RASH ON THE FACE twice daily needed FOR RASH, apply with moisturiz er if kirk. Can STOP if RASH clears AND just apply when RASH is active. 10/29 completed Not Available Not Available Not Available metronidazo le 0.75 % topical cream 10/29 completed Not Available Not Available Not Available omeprazole 20 mg capsule,del ayed release 10/29 completed Not Available Not Available Not Available mupirocin 2 % topical ointment 10/29 completed Not Available Not Available Not Available Vitamin 27 mg iron-0.8 mg tablet 10/29 completed Not Available Not Available Not Available ciprofloxac in 0.3 %-dexametha sone 0.1 % ear drops,suspe nsion 10/29 completed Not Available Not Available Not Available fluocinolon e acetonide oil 0.01 % ear drops 10/29 completed Not Available Not Available Not Available Vitals Date Recorded Body weight Body mass index (BMI) Body height Systolic blood pressure Diastolic blood pressure Provider Name and Address Organization Details Last Updated DateTime 10/30/2023 41600.15 g 26.5 kg/m2 167.64 cm 130 mm[Hg] 70 mm[Hg] Elodia Watt [facility] 14:19:46 Date Recorded Body height Body mass index (BMI) Body weight Systolic blood pressure Diastolic blood pressure Provider Name and Address Organization Details Last Updated DateTime 12/19/2023 167.64 cm 26.5 kg/m2 60449.15 g 120 mm[Hg] 80 mm[Hg] Elodia Watt [facility] 14:09:22 Social History Question Answer Notes LastModified by Organizat ion Details LastModified Time Tobacco Smoking Status Never Smoker Elodia ham [facility] 10/30/2023 14:17:40 What Is The Highest Grade Or Level Of School You Have Completed Or The Highest Degree You Have Received? [id number] Information not available 10/30/2023 Do You Have Any Children? Yes Information not available 10/30/2023 Does Your Partner Physically Hurt You Or Threaten To Hurt You? No Information not available 10/30/2023 Has Your Partner Forced You To Have Sex Or Perform Sex Acts When You Did Not Want To? No Information not available 10/30/2023 Does Your Partner Insult, Scream At Or Talk Down To You? No Information not available 10/30/2023 Does Your Partner Control You Or Any Part Of Your Life? No Information not available 10/30/2023 Are You Afraid Of Your Partner? No Information not available 10/30/2023 Drug Use? No Information no t available 10/30/2023 Do You Feel Safe At Home? Yes Information not available 10/30/2023 How Many Children Do You Have? 1 Information not available 10/30/2023 Do You Use Protection During Sex? No Information not available 10/30/2023 Are You Sexually Active? Yes Information not available 10/30/2023 How Much Tobacco Do You Smoke? No Information not available 10/30/2023 Sex: Unknown Functional Status Question Answer Note LastModified by Organizat ion Details LastModified Time What is your level of alcohol consumption? Occasional Information not available 10/30/2023 What is your exercise level? Occasional Information not available 10/30/2023 Mental Status Question Answer Note LastModified by Organization D etails LastModified Time Do you feel stressed (tense, restless, nervous, or anxious, or unable to sleep at night)? [id number] Information not available 10/30/2023 Family History Relationship Description Onset Age of this Age Resolved Age Notes LastModified by Organization Details LastModified Time Maternal Aunt Malignant tumor of colon Not available 2023 14:17:25 Brother Coronary arterioscler osis 37 Not available 2023 14:17:25 Father Hypertensive disorder 50 Not available 2023 14:17:25 Medical History Condition Response Other N *No Diseases or Conditions N Breast Cancer N Blood clots N Colon cancer N Benign breast disease N Depression N Lung Disease N Defects or Inherited Disease Y Anesthesia Complications N BrCa gene tested? N Headaches/Migraines N Have you ever been on isolation N Anxiety Disorder N HSV N Arthritis N Infertility Y Interstitial Cystitis N Abnormal pap N Acid Reflux (GERD) Y Cancer N Stroke N Endometriosis Y Fibromyalgia N Spina Bifida N HIV N Heart Problems Y Sexual Dysfunction N Autoimmune disorder N Kidney or Bladder Problems N Thyroid Problems N GI Problems Y Eating Disorder N Anemia Y Multiple Sclerosis N Psychiatric Illness N Ovarian Cancer N Diabetes N Blood Transfusions N Bladder disease N History of MRSA N Abnormal Uterine Bleeding N Hyperlipidemia N BrCa positive N Diverticulitis N Abuse/Domestic Violence N Asthma N Hepatitis N Hypertension N Osteoporosis N Thrombophilias N Gynecological History Statement/Question Response Abnormal Pap N Flow Moderate Infertility Y Date of LMP 10/10/2023 STIs/STDs N HPV Vaccine N Endometriosis Y Duration of Flow (days) 7 Age at Menarche 15 Current Control Method None Age at First Child 33 Fibroids N Cervical Cancer N Uterine Cancer N BrCa gene tested? N Current Control Method None Ovarian Cancer N Frequency of Cycle (Q days) 28 Breast Cancer N Sexually Active? Y Sexual Problems? N Pap Required? Y Obstetrics History GPAL:G 1 P 1 0 0 1 Type Value Full Term 1 Living 1 Total 1 Past Encounters Encounter ID Performer Location Encounter Start Date Encounter Closed Date Diagnosis/Indication Diagnosis SNOMED-CT Code Diagnosis ICD10 Code Diagnosis Note [id number] AMALIA RENDON DO G[facility] [address] [place] [address] 10/30/2023 14:07:01 11/05/2023 15:24:41 Female infertility 2377668 N97.9 Endometrio sis of ovary 225157844 N80.109 37 yo F in office for follow up for endometrio maMed, surg, OBGYN hx all reviewedNO medical records available for review prior to this visit despite attempts before apt to collect records from [facility] with ANDREW rothman at this time. Thorough review of medical and OB hx as well as prior surgeries. No USN availableP t referred to office for mgmt of endometrio maPt reports medium sized endometrio ma approx 5 cmNO pain or other issues at this timeUnclea r what further workup or interventi ons needed at this timePt is clinically stableShe has a hx of an oophorecto my during her previous pregnancyN ormal HSG per ptWill await the records and USN resultsTor ezekiel precaution s reviewedTi med intercours e and related precaution sWill defer to STIV[facility] providers regarding the need for IVF / IUICan manage endometrio ma with observatio n vs. surgery as reviewed todayAll questions answeredFu rther planning with rpt USN, surgery, labs pending USN and records [id number] AMALIA RENDON , DO [address] [facility] [place] [address] 12/19/2023 13:46:48 12/25/2023 15:13:43 Polyp of corpus uteri 69849140 N84.0 38 yo F in office to follow up on USNMed, surg, OBGYN hx all reviewedPt is trying for pregnancyF ollowed with UCONN STIVEN - not undergoing any IUI or IVF or fertility treatments at this timeUSN on 11/21/23: USN shows AV uterus with EM 0.92 cm. Echogenic area in the uterus consistent with polyp 1.6 x 0.7 x 0.6 cm. Right ovary cyst 1.8 x 1.7 x 1.7 cm (simple) and right ovarian complex cyst 2.0 x 1.7 x 1.0 cm.Reviewe d these findings - complex cyst previously reviewed, [facility] a [facility] reviewedMe nses regularRev iewed polyps and also discussed it is possible that there is no intracavit josselyn lesions and only appears that way on USN. Reviewed polyps and their impact on menses and occasional fertilityR eviewed options of polypectom yGiven menses regular, pt's desire for - will schedule a follow up SIS - will schedule around menses to ensure pt is not at the time of procedureS IS and expectatio ns reviewedAl l questions answeredSI S scheduled [id number] REBECCA SANTILLAN, DO G[address] [place] [address] 03/06/2024 13:28:30 03/06/2024 15:42:11 Ultrasound scan abnormal [id number] R93.89 Patient here for SONOHYST s/p a PELVIC USN done on 11/21/2023 which showed AV uterus with EM 0.92 cm. Echogenic area in the uterus consistent with a possible uterine polyp measuring 1.6 x 0.7 x 0.6 cm. Right ovary cyst 1.8 x 1.7 x 1.7 cm (simple) and right ovarian complex cyst 2.0 x 1.7 x 1.0 cm. She is actively trying to conceive. She had seen [facility] but wishes to continue to attempt to conceive naturally. SONOHYST performed today shows no obvious polyps/fib roids or intracavit josselyn findings.Umu ayoubiewed at length with patient.Sh e will continue to attempt . Health Concerns Section Related Observation LastModified by Organization Detai ls LastModified Time None Recorded Concern Status LastModified by Organization Details LastModified Time None Recorded Advance Directives Directive None Recorded Payers Insurance Date Sequence Insurance Name Policy Number Policy Robertson Covered Member ID Robertson Member ID Guarantor Name 03/06/2024 1 [employer] [place] [id number] [facility] [id number] [facility] Notes Date Note Type Note Provider Name and Address Organization Details Recorded Time 4 text/html [facility] InfertilityReported bypatient.Context:menstrua l cycles regular/monthly; no history of STD/pelvic infection; no past IUD use; no history of endometriosis; no fibroids; no abdominal surgery; no prior infertility; no sexual dysfunction; no recurrent miscarriage; no history of PCO; no history of thyroid dysfunction; no family history of congenital anomalies/chromosomal abnormalities/genetic disorders; history of chicken pox Associated Symptoms:no pelvic pain; no abdominal pain; no dyspareunia; no abnormal bleeding; no premenstrual symptoms DO Kelvin DANIELS [facility], [address] [place] [address], [phone], [facility] 11/05/2023 14:23:55 4 text/html [facility] ContraceptionReported bypatient.Associated Symptoms:regular menses; no BTB menses; no side effects DO Kelvin DANIELS [facility], [address] [place] [address], [phone], [facility] 12/25/2023 12:06:57 4 text/html Patient present for sonohysterogram due to possible uterine polyp seen on PELVIC USN done on 11/21/2023. She is attempting . REBECCA SANTILLAN, DO [address] [facility], 3rd Floor, [place], [address], [place] [facility] 03/06/2024 14:26:12 OBGyn Episode Ob Episode Information Episode Created Date Number of Fetuses Patient Bloodtype Patient rh Status Prepregnancy Weight lbs Domestic Partner Domestic Partner Phone Father Name Occupational Health And Safety Manager Status 10/30/19 24 1 CLOSED Fetus Data First Name Last Name Admitted to NICU Weight (g) Sex Living Outcome Pediatric Complications Fetus ID Race Codes Race Delivery Type 2919.77 1704 F Full Term [id number] Vaginal Delivery Tyrell Calculation Initial Tyrell Date Initial Exam Date Initial Exam Provider Initial Ultrasound Date Last Menstrual Period Date Ultra Sound Weeks Gestation 0 Eighteen To Twenty Week Tyrell Update Ultra Sound Date Fundal Height At Umbil Quickening Date Ultra Sound Latest Weeks Gestation Final Tyrell Confirmed By Final Tyrell Confirmed Date Final Tyrell Date Ultra Sound Latest Days Gestation 0 0 Menstrual History Last Menstrual Date Menses Monthly On Bcp Conception Prior Menses Frequency Hcg Plus Date Menarche Onset Age Delivery Information Delivery Date Delivery Type Labor Anesthesia Weeks Gestation Incision Type Labor Labor Length Hrs Delivered By Post Complications Tubal Sterilization Discharge Date Comments 9 Discharge Information Feeding Method Contraceptive Method Maternal HG B and HCT Levels
== END 2024-08-26 11:16 | disposition home or self-care (01) ==
LOC: HO.HWS 10:02
PROVIDERS: Visit Provider Advanced Practice Midwife
DX: Z01.419 Encounter for gynecological examination (general) (routine) without abnormal findings (principal); R10.2 Pelvic and perineal pain
CPT/HCPCS: 99212; 99395; 99459

== ENCOUNTER 2024-08-26 10:02 | Outpatient (REF) | payer OTHER, SELFPAY ==
--- OUTSIDE RECORDS SUMMARY | 2024-08-26 12:11 | XMS_ITS | Clinical Summary ---
Author Organization [facility] Address [address] [place] [address] Care Team Providers Care Barrel Marker Name Role Phone Pcp, No Primary Care Provider Unavailabl e Medications Fluocinolone Acetonide 0.01 % OilIndications: Chronic serous otitis media, bilateral PLACE 4 DROP(S) IN EACH AFFECTED EAR TWICE DAILY FOR 7 DAYS 20 each 1 03/10/2024 Active Encounters Date Type Department Care Team Description 08/11/2024 Telephone [facility] [address], [place] [address] Xavi Esteban MD from Last [...] patient's age to complete this topic Insurance [facility] Care Teams Barrel Marker Relationship Specialty Start Date End Date Pcp, No [address] [place] [address] PCP - General 10/06/22
--- OUTSIDE RECORDS SUMMARY | 2024-08-26 12:11 | XMS_ITS | Clinical Summary ---
Author Organization [facility] Address [address] [place] [address] Care Team Providers Care Electrician Supervisor Name Role Phone Eliza Stark MD Primary [...] 01/23/2024 Last Assessment & Plan: Sees a lumber tailer every 6 months who has recommended Flagyl [...] age to complete this topic Care Teams Electrician Supervisor Relationship Specialty Start Date End Date Eliza Stark MD PCP - General Family Medicine 01/23/24
--- OUTSIDE RECORDS SUMMARY | 2024-08-26 12:11 | XMS_ITS | Clinical Summary ---
Author Organization [facility] Address [address] [place] [address] Care Team Providers Care Dynamite Packing Machine Operator Name Role Phone Rika Kurtz ZENOBIA Primary Care Provider [phone] Source Comments PLEASE NOTE, if this patient [...] Description 08/06/2024 1:00 PM EDT Office Visit [facility] [address] [place] [address] Cherise Frost RHD Encounter for dental examination (Primary Dx); Abfraction; Caries; Defective dental bahai; Chronic gingivitis, plaque induced from Last 3 [...] Upcoming Encounters Date Type Department Care Team ([facility] Contact Info) Description 08/27/2024 11:00 AM EDT Office Visit [facility] [address] [place] [address] [place], Cristo, DMD [address] [place] [address] 09/10/2024 9:00 AM EDT Office Visit [facility] [address] [place] [address] [place] Cristo, DMD [address] [place] [address] 02/11/2025 10:20 AM EDT Office Visit [facility] [address] [place] [phone] Cherise Frost, RHD [address] [place] [address] Health Maintenance Due Date Last Done Comments Anxiety Screening 1987 Dental Perio Charting 1987 HPV Screening 1987 Pap + HPV 1987 Tobacco Screening 1987 Relationship Safety Screening/Counseling 11/05/2002 Imm-Hepatitis B (1 of 3 - 19 + 3-dose series) 11/05/2006 Cervical Cancer Screening 11/05/2008 Pap Smear 11/05/2008 [id number] ( season) 2023 021, 08/18/2020 Alcohol and [...] 1:00 PM EDT Abfraction Caries Defective dental bahai Encounter for dental examination COMP ORAL EVALUATION [...] EDT from Last 3 Months Insurance [facility] ([facility]) Member Subscriber Plan / Payer (Ef fective 2020-Present) Name:Mabel Rawls Relation to Subscriber:Self Name:Mabel Rawls Payer ID:[id number] Type:[email or web address] Address: [address] [place] [address] DENTAL Care Teams Dynamite Packing Machine Operator Relationship Specialty Start Date End Date Rika Kurtz FNP [address] [place] [address] PCP - General Internal Medicine 01/19/21
--- OUTSIDE RECORDS SUMMARY | 2024-08-26 12:11 | XMS_ITS | Clinical Summary ---
Author Organization [facility] [address] Building Address [address] [facility] [place] [address] Phone Care Team Providers Care Business Coordinator Name Role Phone Eliza Stark MD Primary Care Provider [phone] Allergies No known active allergies Medications amoxicillin-cla [...] for oral antibiotic to be sent to [facility] pharmacy for diffuse otitis externa, I suspect otitis media as well given TM findings. Will have her trial augmentin wit some pseudomonas coverage. - Advise to continue avoiding water in ears - Follow up with ENT specialist as soon as possible Encounters Date Type Department Care Team Description 08/11/2024 11:30 AM EDT Office Visit [facility] Medicine - [facility] [address] [place] [address] Eliza Stark MD Acute diffuse [...] - [facility] [address] [place] [address] Eliza Stark MD [address] [place] [address] Health Maintenance Due Date Last Done Comments [...] patient's age to complete this topic Insurance [facility] ([facility]) Care Teams Business Coordinator Relationship Specialty Start Date End Date Eliza Stark MD [address] [place] [address] PCP - General 01/28/24
[2024-08-26 16:36] LABS: Bacterial Vaginosis PCR NEGATIVE (Negative); Candida Group PCR NOT DETECTED (Not Detect); Candida glab krusei PCR NOT DETECTED (Not Detect); Trichomonas vaginalis PCR NOT DETECTED (Not Detect)
[2024-08-26 17:06] LABS: CT PCR NOT DETECTED (Not Detect.); NG PCR NOT DETECTED (Not Detect.)
== END 2024-08-26 10:03 | disposition home or self-care (01) ==
LOC: HO.LAB 10:02
PROVIDERS: Visit Provider Advanced Practice Midwife
DX: Z01.419 Encounter for gynecological examination (general) (routine) without abnormal findings (principal); R10.2 Pelvic and perineal pain
CPT/HCPCS: 81003; 81515; 87491; 87591

== ENCOUNTER 2024-08-26 10:46 | Outpatient (REF) | payer OTHER, SELFPAY | END 2024-08-26 10:47 | disposition home or self-care (01) | LOC: HO.LNP 10:46 | PROVIDERS: Visit Provider Advanced Practice Midwife | DX: Z13.89 Encounter for screening for other disorder (principal) ==

== ENCOUNTER 2024-09-26 16:23 | Outpatient (REF) | payer OTHER, SELFPAY ==
--- NOTE | ~2024-09-26 | US_ITS ---
EXAMINATION: US PELVIS CLINICAL INFORMATION: Pelvic and perineal pain COMPARISON: None available. TECHNIQUE: Ultrasound of the pelvis is performed using both transabdominal and transvaginal transducers along with Doppler. Transvaginal imaging is performed due to inadequate visualization transabdominally. FINDINGS: Uterus: The uterus measures 9.3 x 3.6 x 5.3 cm. The double wall endometrial thickness is 12 mm. The uterus is smooth in contour and has normal myometrial echogenicity. No visible fibroid. Adnexa: Both ovaries are visualized. There is normal color flow to the adnexa. There is no ovarian torsion. There is no pelvic ascites or fluid collection. Right ovary measures 7.6 x 4.3 x 6.3 cm. There is a mass that measures 6.6 x 4.1 x 5.9 cm with an irregular mural nodule. There is low-level internal echogenicity. No blood flow was documented in the mural nodule. cm. Left ovary has been surgically removed. US/US pelvic and transvaginal IMPRESSION: Complex right ovarian cyst measuring 6.6 x 4.1 x 5.9 cm without internal blood flow could represent hemorrhagic cyst. Follow-up in 6-12 weeks. Electronically signed by: Emanuel Velasquez MD 09/26/2024 06:05 PM EDT
== END 2024-09-26 16:24 | disposition home or self-care (01) ==
LOC: HO.US 16:23
PROVIDERS: Visit Provider Advanced Practice Midwife
DX: R10.2 Pelvic and perineal pain (principal)
CPT/HCPCS: 76830; 76856

== ENCOUNTER → 2024-09-26 16:26 | Outpatient (BNV) | payer OTHER, SELFPAY | PROVIDERS: Visit Provider Radiology Diagnostic Radiology | DX: N83.201 Unspecified ovarian cyst, right side (principal) | CPT/HCPCS: 76830; 76856 ==

== ENCOUNTER 2024-09-30 14:19 | Outpatient (AMB) | payer OTHER, SELFPAY ==
--- NOTE | 2024-09-30 14:20 | A.OFFVIS_ITS ---
Intake Visit Reasons: TV US follow up Intake Note: cell #[phone] Structural Manager: Structural Manager Present Allergies No Known Allergies Allergy (Verified 08/26/24 10:12) Is last menstrual period known: Yes HPI Comments Details: Tele Health Visit Total time I personally spent on visit and management today: 24 minutes. Time spent included review of pertinent office notes in the electronic health record; review of laboratory and imaging results; review of personal family medical history; discussing diagnosis and plan of care with the patient; documenting the encounter in the EMR. Patient presents to discuss: Ultrasound findings, history of pelvic pain, endometriosis, and infertility. Prior left cystectomy. She reports the pain has been better since she has had acupuncture. She has a follow up with Dr. Tafoya October 27, and has signed her records to release/transfer care. Leaving for vacation for 2 weeks this week [facility] Medical History Pelvic pain Palpitations Surgical History Hx of endoscopy History of esophagogastroduodenoscopy (EGD) History of repair of congenital atrial septal defect (ASD) History of left oophorectomy History of appendectomy History of open heart surgery Family History Mother No problems noted. Father No problems noted. Brother CAD (coronary artery disease) Daughter No problems noted. Maternal Aunt Colon cancer Social History Household Members: Spouse and Children Household Members Other:: daughter Housing: Apartment Alcohol intake: current Alcohol intake frequency: holidays/special occasions only Comment: social- rarely Patient Tobacco Use Status: Never used Tobacco e-Cigarette/Vaping Use: Never Used Second Hand Smoke Exposure: No Current occupational status: employed Current occupation: [employer] Sexual orientation: Straight/Heterosexual Gender identity: Female Cognitive needs: No Hearing needs: No Vision needs: No Female Reproductive History Menstrual Age of Menarche: 15 Review of Systems Const All systems reviewed & are unremarkable except as noted in HPI and below Endo Reports no additional complaints Physical Exam Const General: cooperative, healthy appearing and no acute distress Psych Appearance: well kempt Attitude: cooperative Thought process: Normal thought process present Telehealth Telehealth Telehealth Platform: [employer] Location of provider rendering services: practice address Location of patient: address on file Patient Identification confirmed using: Name, : Yes Telehealth method: video Patient verbally consented to treatment: Yes Patient verbally consented to billing insurance company: Yes Patient informed of any privacy concerns related to visit: Yes Results Reviewed Results Reviewed: [address] [address] Ultrasound Report Signed Patient: Mabel Rawls MR#: [id number] : 1985 Acct:[id number] Age/Sex: 38 / F ADM Date: 09/26/24 Loc: .[place] Attending Dr: Christin Duff CNM Ordering Physician: Christin Duff CNM Date of Service: 09/26/24 Procedure(s): US pelvic and transvaginal Accession Number(s): [id number] cc: Christin Duff CNM~ EXAMINATION: US PELVIS CLINICAL INFORMATION: Pelvic and perineal pain COMPARISON: None available. TECHNIQUE: Ultrasound of the pelvis is performed using both transabdominal and transvaginal transducers along with Doppler. Transvaginal imaging is performed due to inadequate visualization transabdominally. FINDINGS: Uterus: The uterus measures 9.3 x 3.6 x 5.3 cm. The double wall endometrial thickness is 12 mm. The uterus is smooth in contour and has normal myometrial echogenicity. No visible fibroid. Adnexa: Both ovaries are visualized. There is normal color flow to the adnexa. There is no ovarian torsion. There is no pelvic ascites or fluid collection. Right ovary measures 7.6 x 4.3 x 6.3 cm. There is a mass that measures 6.6 x 4.1 x 5.9 cm with an irregular mural nodule. There is low-level internal echogenicity. No blood flow was documented in the mural nodule. cm. Left ovary has been surgically removed. US/US pelvic and transvaginal IMPRESSION: Complex right ovarian cyst measuring 6.6 x 4.1 x 5.9 cm without internal blood flow could represent hemorrhagic cyst. Follow-up in 6-12 weeks. Electronically signed by: Emanuel Velasquez MD 09/26/2024 06:05 PM EDT Dictated By: Emanuel Velasquez MD Signed By: <Electronically signed by Emanuel Velasquez MD in OV> 09/26/24 1805 DD/ 1631 TD/TT: 09/26/[address] Maintenance Technician: Assessment & Plan Assessment & Plan (1) Pelvic pain: Code(s): R10.2 - Pelvic and perineal pain Category: Medical (2) Cyst of ovary: Code(s): N83.209 - Unspecified ovarian cyst, unspecified side Qualifiers: Laterality: right Qualified Code(s): N83.201 - Unspecified ovarian cyst, right side Plan IMPRESSION: Complex right ovarian cyst measuring 6.6 x 4.1 x 5.9 cm without internal blood flow could represent hemorrhagic cyst. Follow-up in 6-12 weeks. Counseled regarding findings of: Complex ovarian cyst, which is often benign, and most resolve on their own overtime. Some develop into premalignant or malignant tumors. Limitations of testing for diagnostic purposes. Further monitoring and evaluation is recommended with US, possible CT, or MRI study. If persists, or is indicated (Ca-125, Carbohydrate Antigen 19-9, & Carcinoembryonic Antigen) labs will be ordered and referral to [facility] or general gynecology for MD care if indicated for possible surgical consult. Follow up for test results. This note is constructed using voice recognition software. While every effort has been made to ensure accuracy, bait tier errors may have been included. Reviewed risk for warnings for ovarian torsion signs and symptoms and when to seek emergent care of the ED. [id number] comfort measures reviewed, follow up with Dr. Tafoya October 27 for further plan of care. Ultrasound at 6 week interval. The patient expressed understanding and agreement with the plan of care. All of her questions and concerns were addressed to the best of my ability. This note is constructed using voice recognition software. While every effort has been made to ensure accuracy, bait tier errors may have been included. Orders: Orders US pelvic and transvaginal 11/03/24 N83.209 - Unspecified ovarian cyst, unspecified side, R10.2 - Pelvic and perineal pain Coding Level of Care Code Tele Est Pt Level 3 (07972) Diagnoses Pelvic pain R10.2 Cyst of right ovary N83.201 Laterality: right
--- OUTSIDE RECORDS SUMMARY | 2024-09-30 16:34 | XMS_ITS | Clinical Summary ---
Author Organization [facility] Address [address] [place] [address] Care Team Providers Care Screening Technician Name Role Phone Rika Kurtz ZENOBIA Primary Care Provider [phone] Source Comments PLEASE NOTE, if this patient is a minor, it may be UNLAWFUL to discuss sensitive information that is contained in these records (such as FAMILY PLANNING, MENTAL HEALTH or SUBSTANCE ABUSE) with the minor patient's parent or other person without the patient's specific authorization.[facility] Allergies No known active allergies Medications No known medications Active Problems No known active problems Encounters Date Type Department Care Team Description 09/10/2024 9:00 AM EDT Office Visit [address] [phone] Cristo De La Cruz DMD Fracture of crown, enamel, and dentin of tooth without pulp exposure (Primary Dx) 08/27/2024 11:00 AM EDT Office Visit [address] [phone] Cristo De La Cruz DMD Caries (Primary Dx); Caries of enamel (incipient) 08/06/2024 1:00 PM EDT Office Visit [address] [phone] Cherise Frost RHD Encounter for dental examination (Primary Dx); Abfraction; Caries; Defective dental alevism; Chronic gingivitis, plaque induced from Last 3 [...] Sign Reading Time Taken Comments Blood Pressure 129/79 09/10/2024 9:06 AM EDT Pulse 81 09/10/2024 9:06 AM EDT Temperature - - Respiratory Rate - - Oxygen Saturation - - Inhaled Oxygen Concentration - - Weight - - Height - - Body Mass Index - - Plan of Treatment Upcoming Encounters Date Type Department Care Team (Late st Contact Info) Description 10/15/2024 10:20 AM EDT Office Visit [facility] [address] [place] [phone] Cristo De La Cruz DMD [address] [place] [address] 02/11/2025 10:20 AM EDT Office Visit [facility] [address] [place] [phone] Cherise Frost RHD [address] [place] [address] Health Maintenance Due Date Last Done Comments Anxiety Screening 1985 Dental Perio Charting 1985 HPV Screening 1985 Pap + HPV 1985 Relationship Safety Screening/Counseling 11/05/2002 Imm-Hepatitis B (1 of 3 - 19 + 3-dose series) 11/05/2006 Cervical Cancer Screening 11/05/2008 Pap Smear 11/05/2008 [id number] ( season) 2023 021, 08/18/2020 Alcohol and Drug Screen 04/16/2024 Depression Annual Screen 04/16/2024 Dental BW 08/08/2025 08/06/2024 Dental Examination 08/08/2025 08/06/2024 Dental Prophy 08/08/2025 08/06/2024 Tobacco Screening 09/10/2025 09/10/2024 Diabetes Screening 01/22/2027 01/23/2024, 1 , 01/23/2024 Hypertension Screening (#1) 09/10/2027 Dental FMX/Pano 08/08/2029 08/06/2024 Imm-DTaP/Tdap/Td (3 - Td or Tdap) 03/22/2030 020, 09/13/2018 HIV Screening Completed 07/17/2018 Imm-Influenza Completed 01/18/2024 Hepatitis C Screening Completed 01/23/2024 , 01/23/2024, 11/29/2018 Cervical Ablation/Cold-Knife Conization Discontinued Cervical Cryotherapy Discontinued Colposcopy Discontinued Endometrial Biopsy Discontinued Excision/Leep Discontinued HPV Genotyping Discontinued Vaginal Pap Discontinued Vulvoscopy Discontinued Procedures Procedure Name Priority Date/Time Associated Diagnosis Comments CASE PRESENTATION SUBS DTL & EXTENSIVE TX PLN Routine 09/10/2024 9:00 AM EDT Fracture of crown, enamel, and dentin of tooth without pulp exposure 8 DC RESIN-BASED COMPOSITE TWO SURFACES ANTERIOR Routine 09/10/2024 9:00 AM EDT Fracture of crown, enamel, and dentin of tooth without pulp exposure 9 I RESIN-BASED COMPOSITE ONE SURFACE ANTERIOR Routine 09/10/2024 9:00 AM EDT Fracture of crown, enamel, and dentin of tooth without pulp exposure CASE PRESENTATION SUBS DTL & EXTENSIVE TX PLN Routine 08/27/2024 11:00 AM EDT Caries 19 DO RESIN-BASED COMPOSITE - TWO SURFACES POSTERIOR Routine 08/27/2024 11:00 AM EDT Caries Caries of enamel (incipient) DENTAL CASE MANAGEMENT - MOTIVATIONAL INTV Routine 08/06/2024 1:00 PM EDT Abfraction Caries Encounter for dental examination PROPHYLAXIS - ADULT Routine 08/06/2024 1 :00 PM EDT Abfraction Caries Encounter for dental examination INTRAORAL - COMP SERIES OF RADIOGRAPHIC IMAGES Routine 08/06/2024 1:00 PM EDT Abfraction Caries Defective dental alevism Encounter for dental examination COMP ORAL EVALUATION [...] EDT from Last 3 Months Insurance HNE ([facility]) Member Subscriber Plan / Payer (Ef fective 2020-Present) Name:Mabel Rawls Relation to Subscriber:Self Name:Mabel Rawls Payer ID:[id number] Type:[employer] Address: [address] [place], [place] [id number] [facility] Care Teams Screening Technician Relationship Specialty Start Date End Date Rika Kurtz FNP [address] [place] [id number] PCP - General Internal Medicine 01/19/21
== END 2024-10-01 07:33 | disposition home or self-care (01) ==
LOC: HO.HWS 14:19
PROVIDERS: Visit Provider Advanced Practice Midwife
DX: R10.2 Pelvic and perineal pain (principal); N83.201 Unspecified ovarian cyst, right side
CPT/HCPCS: 99213

== ENCOUNTER → 2024-09-30 14:19 | Outpatient (BNVA) | payer OTHER, SELFPAY | PROVIDERS: Visit Provider Advanced Practice Midwife ==

== ENCOUNTER 2024-11-03 15:52 | Outpatient (REF) | payer OTHER, SELFPAY ==
--- NOTE | ~2024-11-03 | US_ITS ---
CLINICAL HISTORY: R10.2 - Pelvic and perineal pain --- Additional Notes or Special Instructions: repeat 6 wks follow up US pelvis transabdominal and transvaginal with Doppler Comparison: US/SR - US PELVIS TRANSABDOMINAL AND TRANSVAGINAL - 09/26/24 16:29 EDT Findings: Transabdominal scanning performed for overall anatomy. Transvaginal scanning performed for additional detail. Anteverted uterus is 9.7 cm length. Normal myometrium. No endometrial lesion, 8 mm thickness. Right ovary 7.0 x 4.1 x 5.7 cm. Complex cyst measuring 6.0 x 3.8 x 4.6 cm Left ovary is not seen. Normal color Doppler with arterial/venous spectral tracing of the right ovary and left adnexa. No free fluid. IMPRESSION: 1. Stable to slight decrease in size of complex right ovarian cyst. Given its persistence, gynecologic consultation is recommended to assess for neoplasm. This document has been electronically signed by: Az Farr MD on 11/04/2024 15:40:42
--- OUTSIDE RECORDS SUMMARY | 2024-11-03 16:17 | XMS_ITS | Clinical Summary ---
Author Organization [facility] [address] [facility] Building Address [address] [place] [address] Phone Care Team Providers Care Cmm Technician Name Role Phone Eliza Stark MD Primary Care Provider [phone] Allergies No known active allergies Active Problems Problem Noted Date Diagnosed Date [...] for oral antibiotic to be sent to [facility] pharmacy for diffuse otitis externa, I suspect otitis media as well given TM findings. Will have her trial augmentin wit some pseudomonas coverage. - Advise to continue avoiding water in ears - Follow up with ENT specialist as soon as possible Encounters Date Type Department Care Team Description 08/11/2024 11:30 AM EDT Office Visit Internal Medicine - [facility] [address] [place] [address] Eliza Stark MD Acute diffuse [...] 63 08/11/2024 11:36 AM EDT Temperature 36.8 C (98.2 F) 08/11/2024 11:36 AM EDT Respiratory Rate - - Oxygen Saturation 97% [...] - [facility] [address] [place] [address] Eliza Stark MD [address] [place] [address] Health Maintenance Due Date Last Done Comments Hepatitis B Vaccines (1 of 3 - 19+ 3-dose series) 11/05/2006 COVID-19 Vaccine (2023-2 5 season) 2023 HIV Screening 02/10/2024 Social Influencers of Health Screening 02/10/2024 Cervical Cancer Screening: HPV 10/26/2024 10/27/2019 Influenza Vaccine (#1) 2024 01/18/2024 DTaP,Tdap,and Td Vaccines (2 - Td or Tdap) 09/13/2028 09/13/2018 Cholesterol Screening (Lipid Panel) 01/22/2029 01/23/2024, 01/23/2024 Hepatitis C Screening Completed 01/23/2024 , 11/29/2018 Depression Screening Completed 08/11/2024 HIB Vaccines Aged Out No longer eligi [...] 5 Years) and At-Risk Patients (6 to 49 Years) Aged Out No longer eligible b ased on patient's age to complete this topic RSV Immunization Patients Under 20 months Aged Out No longer eligible b ased on patient's age to complete this topic Varicella Vaccines Aged Out No longer eligible based on patient's age to complete this topic Insurance [facility] ([employer]) Care Teams Cmm Technician Relationship Specialty Start Date End Date Eliza Stark MD [address] [place] [address] [facility] - General 01/28/24
--- OUTSIDE RECORDS SUMMARY | 2024-11-03 16:17 | XMS_ITS | Data Portability ---
Author Organization [place] - [facility], [facility] Address [address] [place] [address] Assessment No assessment recorded. Plan of Treatment Reminders Order Date Submit Date Provider Last Modified By Organization Details Last Modified Time Details Appointments None recorded. Lab test, urine 2023 024 [email or web address] i1 In-Office Order, Internal Use Only DO Not Attach Compendium DO Not Attach Compendium, Do Not Delete/merge, [id number] 16:12:09 Referral None recorded. Procedures None recorded. Surgeries None recorded. Imaging None recorded. Medication Orders None recorded. Patient TargetsNo targets recorded. Patient Instructions Encounter Date Encounter Id Patient Instructions Last Modified By Organization Details Last Modified Time 10/30/2023 [id number] infertility: car e instructions [id number] Not available 11/08/2023 19:59:43 Reason for Referral None Reported. Results Created Date Observation Date Name Description Value Unit Range Abnormal Flag Note LastModifiedBy Organization Detail LastModifiedTime 03/06/20 24 03/06/2024 pregn abbey test, urine Result negati ve Not Available In-Office Order Internal Use Only DO Not Attach Compendium DO Not Attach Compendium, Do Not Delete/merge, [id number] 03/06/2024 14:07:34 10/30/1910/29/2024 OVA 1+ mi020j 9.0 U/mL premen opausa l: 0.0 - 63.0; postme nopaus al: 0.0 - 35.0 Refer ence Range (s): Preme nopau marybeth: 0.0 - 63.0 U/mL Postm enopa usal 0.0 - 35.0 U/mL Inter preta tion: Resul ts in the krzysztof l range may sugge st low risk for ovari an cance r. Epith elial cell tumor s make up an avera ge of 75% of all ovari an cance r tumor types , inclu ding serou s, mucin ous, endom etrio id, clear cell, and Brenn er tumor s. Not Available [facility] [address] [place] [address], [place], [address], 10/30/2024 16:26:22 10/30/1910/29/2024 OVA 1+ ova1 3.2 unspec ified menopa usal status : low risk < 4.4; elevat ed risk > 7.0; reflex to overa >= 4.4 and <= 7.0 Refer ence Range (s): Unspe cifie d Menop ausal Statu s: Low Risk < 4.4; [place] baldemar Risk > 7.0; Refle x to Overa >= 4.4 and <= 7.0 A LOW RISK OVA1 combi radha with ultra sound resul ts and menop ausal statu s, predi cts the risk of malig dahiana calcu latio ns (see below ). Resul ts shoul d be inter prete d along with clini sisi and ultra sound asses sment . A low risk value has been deter mined to have a negat avni predi ctive value of 98%. Not Available [facility] [address] [place] [address], [place], [address], 10/30/2024 16:26:22 10/30/1910/29/2024 OVA 1+ risk of malignancy premenopausa l, low risk ultrasound Risk Of Malign abbey: 0.6% (Preme nopaus al, Low Risk Ultras ound) Not Available [facility] [address] [place] [address], [place], [address], 10/30/2024 16:26:22 10/30/19 25 10/29/2024 OVA 1+ risk of malignancy premenopausa l, high risk ultrasound Risk of Malign abbey: 2.6% (Preme nopaus al, High Risk Ultras ound) Not Available [facility] [address] [place] [address] [address] [address], [place], [address], 10/30/2024 16:26:22 10/30/19 25 10/29/2024 OVA 1+ risk of malignancy postmenopaus al, low risk ultrasound Risk of Malign abbey: 2.3% (Postm enopau marybeth, Low Risk Ultras ound) Not Available [facility] [address] [facility] [address] [facility], [place], [address], 10/30/2024 16:26:22 10/30/19 25 10/29/2024 OVA 1+ risk of malignancy postmenopaus al, high risk ultrasound Risk of Malign abbey: 8.6% (Postm enopau marybeth, High Risk Ultras ound) Not Available [facility] [address] [place] [address], [place], [address], 10/30/2024 16:26:22 10/30/19 25 10/29/2024 OVA 1+ disclaimers See Commen ts Discl aimer Resul ts canno t be inter prete d as absol mignon evide nce of the prese nce or [facility]en [facility] paris se and shoul d alway s be inter prete d in combi natio n with clini sisi asses sment . Value s obtai radha with diffe rent assay metho ds or kits canno t be used inter barth eably . Ova1P stephan(R ) is a refle x proce ss which perfo nicholas Ova1( R) and Overa (R), both FDA-c leare d tests for women with adnex al bandar s. Befor e guillermo g any treat ment decis ions, all women shoul d discu ss the [facility] ts with their healt hcare provi mary, who can recom mend follo w up testi ng or proce dures when appro priat e. This test was devel oped and its perfo rmanc e erica cteri stics deter mined by [facility]( R), a wholl y owned subsi diary of [employer] [facility]. Ova1P stephan(R ), an offer ing from [employer] is a refle x proce ss which perfo nicholas Ova1( R) and then perfo nicholas Overa (R) if the Ova1( R) resul t is in the inter media te range . [employer]( R), a wholl y owned subsi diary of [employer] [facility] , in [facility], which is certi fied under the Clini sisi Labor atory Impro vemen t Amend ments of 1987 (CLIA ) as quali fied to perfo rm high compl exity clini sisi testi ng. Ova1P stephan(R ) is perfo rmed by [employer]( R), a wholl y owned subsi diary of [employer] [facility] , [address] [facility] [address] [place], [place] [address] . CAP: [id number]; CLIA: [id number] ; AU ID: [id number]; [facility] Labor atory Certi ficat e Lab ID#: [id number]; [facility] Labor atory Permi t: PFI [id number]; Labor atory Direc tor: Pepe Sanchez che, Ph.D. Not Available [employer] [id number] [facility] [address] [address] [facility], [place], [address], 10/30/2024 16:26:22 10/30/19 25 10/29/2024 OVA 1+ methods and limitations See Commen ts Metho ds And Limit ation s - CA-12 5 II is a compo nent of the OVA1 Test. The CA-12 5 II assay metho d used is santiago godinez ed by [employer]. The diagn ostic sensi tivit y and speci ficit y of the [employer] CA-12 5 II test was calcu lated by katya quintana ovari an carci noma catracho nts at prima ry diagn osis (FIGO stage I to IV) with catracho nts suffe ring from benig n gynec ologi sisi disea ses. At a cutof f value of 65u/m L, the sensi tivit y is 79% (at a low speci ficit y of 82%). The optim al clini sisi value is reach ed at 150 U/mL sensi tivit y 69%, speci ficit y 93%. - High- risk imagi ng was defin ed as any compl ex ovari an tumor with evide nce of solid or papil aliyah compo nents . - Low-r isk imagi ng was defin ed as unilo cular or septa te cysti c ovari an tumor witho ut high- risk findi ngs. Not Available [facility] [address] [address], [place], [address], 10/30/2024 16:26:22 10/30/19 25 10/29/2024 OVA 1+ references See Commen ts Refer ences 1. In a study of 494 subje cts with a pelvi c mass, the OVA1 perfo rmanc e data was: Sensi tivit y - 92.4% and Speci ficit y - 53.5% . Brist ow RE, et al., Gynec ol Oncol . 2013; 128:2 52-25 9 2. Jaker anatoliy ST, et al., Am J Obste t Gynec ol. 2014 Oct;2 11(1) :65. e1-65 .e11 Not Available [facility] [address] [facility] [address], [place], [address], 10/30/2024 16:26:22 11/21/19 24 11/21/2023 US, trans vagin al RAD [id number] [facility] [address], [place], [address], 12/18/2023 07:45:09 03/06/20 24 03/06/2024 US, salin e infus ed uteru s RAD [id number] [facility] [address], [place], [address], 03/07/2024 16:23:07 Result Notes None recorded. Problems No Known Problems Procedures Surgical History Date Name Laterality Status Provider Name and Address Organization Details Recorded Time 03/06/20 24 Saline Infusion Sonogram (SIS) completed REBECCA SANTILLAN DO [address] [facility], 3rd Floor, [place], [address], [place] [facility] 03/06/2024 14:05:45 05/26/19 19 Oophorectomy completed [facility] - [facility] 10/30/2023 14:17:43 05/26/19 19 Ovarian Cystectomy completed [facility] 10/30/2023 14:17:43 08/24/19 07 Appendectomy completed [facility] 10/30/2023 14:17:43 02/24/19 99 Cardiac Surgery completed [facility] 10/30/2023 14:17:43 Imaging Results None recorded. Procedure Notes None recorded. Medical Equipment None [...] Available Not Available Vitals Date Recorded Body height Body mass index (BMI) Body weight Systolic And Diastolic Provider Name and Address Organization Details Last Updated DateTime 10/27/2024 167.64 cm 26 kg/m2 53776.37 g 118/68 mm[Hg] Justo Cool [facility] 10/27/2024 16:13:56 Date Recorded Body weight Body mass index (BMI) Body height Systolic And Diastolic Provider Name and Address Organization Details Last Updated DateTime 10/30/2023 92106.15 g 26.5 kg/m2 167.64 cm 130/70 mm[Hg] Elodia Watt [facility] 10/30/2023 14:19:46 Date Recorded Body height Body mass index (BMI) Body weight Systolic And Diastolic Provider Name and Address Organization Details Last Updated DateTime 12/19/2023 167.64 cm 26.5 kg/m2 50113.15 g 120/80 mm[Hg] Elodia Watt [facility] 12/19/2023 14:09:22 Social History Question Answer Notes LastModified by Organizat ion Details LastModified Time Tobacco Smoking Status Never Smoker Elodia Watt null, [facility] 10/30/2023 14:17:40 What Is The Highest Grade Or Level Of School You Have Completed Or The Highest Degree You Have Received? [id number] Information not available 10/30/2023 Do You Have [...] anxious, or unable to sleep at night)? [id number] Information not available 10/30/2023 Family History Relationship [...] SNOMED-CT Code Diagnosis ICD10 Code Diagnosis Note [id number] AMALIA RENDON DO [facility] [address] [place] [address] 10/30/2023 14:07:01 11/05/2023 15:24:41 Female infertility 6097410 N97.9 Endometrio sis of ovary 189582910 N80.109 37 yo F in office for follow up for endometrio maMed, surg, OBGYN hx all reviewedNO medical records available for review prior to this visit despite attempts before apt to collect records from [facility] with Dimitry rothman at this time. Thorough review of [...] USN, surgery, labs pending USN and records [id number] AMALIA RENDON DO [facility]5 [address] [place] [address] 12/19/2023 13:46:48 12/25/2023 15:13:43 Polyp of corpus uteri 99481785 N84.0 38 yo F in office to [...] reviewed, unchanged from a prior USN through [facility] finding of a polyp reviewedMe nses regularRev [...] ns reviewedAl l questions answeredSI S scheduled [id number] REBECCA SANTILLAN DO [facility] [address] [place] [address] 03/06/2024 13:28:30 03/06/2024 15:42:11 Ultrasound scan abnormal [id number] R93.89 Patient here for SONOHYST s/p a [...] no obvious polyps/fib roids or intracavit josselyn findings.R eviewed at length with patient.Sh e will continue to attempt . [id number] AMALIA RENDON , [facility] [address] [place] [address] 10/27/2024 16:10:13 10/30/2024 13:21:09 Cyst of right ovary [id number] 0898878 N83.201 38 yo F in office to follow up on right ovarian cyst Dx on recent pelvic TVUSMed, surg, OBGYN hx all reviewedPt with hx of left ovary removal and cyst removal during pregnancyP t is trying to conceive, not using any hormonal controlShe was experienci ng pelvic pain and went to [facility] who ordered pelvic USNPelvic USN showed a 6.6 x 4 x 6 cm ovarian cyst with mural noduleRevi ewed USN and discussed prior USNs in office including SISUSN findings reviewedDi scussed concerns related to malignancy , borderline tumors with certain USN findingsPt has already been scheduled for rpt follow up [facility]N [facility] where she had prior USNReviewe d blood work and recommende d OVA 1 tumor markers to risk stratifyRe viewed potential follow up interventi ons pending OVA 1 and pending lab findingsDi scussed surgical options, observatio n options and potential need for referral to [facility] pending findingsPt appears to be clinically well at this timeNo significan t painWill follow up OVA 1 testing and rpt USN findings with further recommenda tionsPain and torsion precaution s reviewedAl l questions answered [id number] Total Time on date of the encounter: 35 minutesObt ain a patient history and/or review a separately obtained history: 5 minutesRev iewing patient s lab/radiol ogy/test results: 5 minutesExa mining the patient: 5 minutesDis cussing Treatment options with patient/fa brayden/careg iver: 10 minutesCou nseling and education of the patient/fa brayden/careg iver: 5 minutesUpd ating/docu menting clinical informatio n in the patient s medical record: [address] of right ovary [id number] N83.291 Health Concerns Section Related Observation LastModified by Organization Detai ls LastModified Time None Recorded Concern Status LastModified by Organization Details LastModified Time None Recorded Advance Directives Directive None Recorded Payers Insurance Date Sequence Insurance Name Policy Number Policy Robertson Covered Member ID Robertson Member ID Guarantor Name 10/30/2024 1 [facility] (O) [id number] Mabel Rawls [id number] Mabel Rawls Notes Date Note Type Note Provider Name and Address Organization Details Recorded Time 4 text/html [facility] InfertilityReported bypatient.Context:menstrua l cycles regular/monthly; no history [...] dyspareunia; no abnormal bleeding; no premenstrual symptoms AMALIA RENDON DO [address], [address], [facility] 11/05/2023 14:23:55 4 text/html [facility] ContraceptionReported bypatient.Associated Symptoms:regular menses; no BTB menses; no side effects AMALIA RENDON DO [address], [address], [facility] 12/25/2023 12:06:57 4 text/html Patient present for sonohysterogram due to possible uterine polyp seen on PELVIC USN done on 11/21/2023. She is attempting . REBECCA SANTILLAN DO [address], [address], [facility] 03/06/2024 14:26:12 5 text/html [facility] Pelvic PainReported bypatient.Associated Symptoms:no abdominal pain; no back pain; no chills; no constipation; no diarrhea; no vaginal discharge; no pain with urination; normal emptying of bladder; no feelings of urgency; no blood in the urine; normal libido; no fever; no nausea; no vomiting; no nocturia; no sexual abuse; no ectopic pregnancies; no endometriosis; no urinary frequency; no vaginal itching or irritation; no dyspareunia AMALIA RENDON DO [address] [facility], 3rd Floor, [place], [address], [place] [facility] 10/30/2024 12:26:26 OBGyn Episode Ob Episode Information Episode Created Date Number of Fetuses Patient Bloodtype Patient rh Status Prepregnancy Weight lbs Domestic Partner Domestic Partner Phone Father Name Publication Distributor Status 10/30/19 24 1 CLOSED Fetus Data First Name Last Name Admitted to NICU Weight (g) Sex Living Outcome Pediatric Complications Fetus ID Race Codes Race Delivery Type 2919.77 1704 F Full Term [id number] Vaginal Delivery Tyrell Calculation Initial Tyrell [...]
--- OUTSIDE RECORDS SUMMARY | 2024-11-03 16:17 | XMS_ITS ---
Author Name [facility] Organization Unknown History of Medication Use Medication Directions Dispensed Refills Start Date End Date Stat us amoxicillin-clavu lanate (AUGMENTIN) 500-125 mg per tablet Take 1 tablet by mouth 2 (two) times a day for 7 days. 08/11/2024 active mupirocinApply 1 Application (topical) 2 times per day for 7 [id number] times per bzjorcqluw4jxuamaxdhm 2% 06/11/2023 active amoxicillinTake 1 Capsule (oral) 2 times per day for 10 [id number] times per wkgohxo49pjzvzkqwfsbm d500MG 08/14/2022 suspended doxycycline hyclate 100 mg capsule 4 completed famotidine 20 mg tablet 4 completed MV-Min-Fe Fum-FA-DHA ( 1 PO) Take by mouth. activ e Problems Problem Status Onset Date Problem Type Date of Resolution Source Diffuse otitis externa active 2024-08-11 [facility] [facility] Acute diffuse otitis externa of left ear active EncounterDiagnosisAct [facility] CORDELL Overweight (BMI 25.0-29.9) active 2024-01-23 ProblemAct [facility] History of repair of congenital atrial septal defect (ASD) active 2024-01-23 ProblemAct [facility] Perioral dermatitis active 2024-01-23 ProblemAct [facility] Chronic otitis externa active 2024-01-23 ProblemAct [facility] Rash and other nonspecific skin eruption active 2023-06-11 ProblemAct [facility]PHYS[facility] Chronic serous otitis media, bilateral active [facility] Vaccine Date Source Lot Number Status Influenza Quadrivalent, 0.5m l, preservative free (Fluarix; FluLaval; Fluzone) ages 6mo and older (Afluria) 3yo and older 01/18/2024 [facility] completed Encounters Encounter Type Encounter Reason Primary Diagnosis Location Date Ambulatory Encounter for test, result negative Encounter for test, result negative [facility] 10/27/2024 Ambulatory Follow-up Follow-up [facility] 08/11/2024 Ambulatory Polyp of corpus uteri Polyp of corpus uteri [facility], [facility] 03/06/2024 Ambulatory Polyp of corpus uteri Polyp of corpus uteri [facility], [facility] 03/06/2024 Ambulatory Overweight Overweight [facility] 01/23/20 Ambulatory Overweight Overweight [facility] 01/23/2024 Ambulatory Polyp of corpus uteri Polyp of corpus uteri [facility], [facility] 01/15/2024 Ambulatory Polyp of corpus uteri Polyp of corpus uteri [facility], [facility] 01/15/2024 Ambulatory Pelvic and perineal pain Pelvic and perineal pain [facility] 12/19/2023 Ambulatory Endometriosis of ovary, unspecified side, unspecified depth Endometriosis of ovary, unspecified side, unspecified depth [facility] 11/21/2023 Ambulatory no current diagnosis no current diagnosis [facility] 10/30/2023 Ambulatory [facility] 07/03/2023 Care Team Organization Name Specialty Phone Email Start Date End Da te [facility] 08/27/2024 [facility] 02/25/2024 [facility] 02/23/2024 [facility] 2023 [facility] Primary [facility] 1 10/28/2024 [facility] 11/05/2023 [facility] 11/02/2023 [facility] NO PROVIDER Primary Care 06/11/2023 [facility] NO PROVIDER Primary Care 06/11/2023
--- OUTSIDE RECORDS SUMMARY | 2024-11-03 16:17 | XMS_ITS | Clinical Summary ---
Author Organization [facility] Address [address] [place] [address] Care Team Providers Care Chipper Operator Name Role Phone Eliza Stark MD Primary [...] 01/23/2024 Last Assessment & Plan: Sees a residential sales manager every 6 months who has recommended Flagyl [...] 92 01/23/2024 9:02 AM EDT Temperature 36.8 C (98.2 F) 01/23/2024 9:02 AM EDT Respiratory Rate - - Oxygen [...] 11/05/2006 Cervical Cancer Screening (Pap Smear) 11/05/2008 Influenza Vaccine (#1) 2024 01/18/2024 Depression Screening 01/22/2025 01/23/2024 Preventative Health Evaluation 01/22/2025 01/23/2024, 01/23/2024 Hepatitis C Screening Completed 01/23/2024 Pneumococcal Vaccine Aged Out No long er eligible based on patient's age to complete this topic RSV Ped < 20 months Aged Out No longe r eligible based on patient's age to complete this topic Care Teams Chipper Operator Relationship Specialty Start Date End Date Eliza Stark MD PCP - General Family Medicine 01/23/24
--- OUTSIDE RECORDS SUMMARY | 2024-11-03 16:17 | XMS_ITS | Clinical Summary ---
Author Organization [facility] Address [address] [place] [address] Care Team Providers Care Salt Lifter Name Role Phone Rika Kurtz [facility] Primary Care Provider [phone] Source Comments PLEASE NOTE, if this patient [...] Description 09/10/2024 9:00 AM EDT Office Visit [address] [address] Cristo De La Cruz DMD 08/27/2024 11:00 AM EDT Office Visit [address] [address] Cristo De La Cruz DMD 08/06/2024 1:00 PM EDT Office Visit [address] [phone] Cherise Frost RHD from Last 3 Months Social History Tobacco [...] Care Team (Late st Contact Info) Description 02/11/2025 10:20 AM EDT Office Visit [facility] [address] [place] [phone] Cherise Frost RHD [address] [place] [address] Health Maintenance Due Date Last Done Comments Anxiety Screening 1987 Dental Perio Charting 1987 HPV Screening 1987 Pap + HPV 1987 Relationship Safety Screening/Counseling 11/05/2002 Imm-Hepatitis B (1 of 3 - 19 + 3-dose series) 11/05/2006 Cervical Cancer Screening 11/05/2008 Pap Smear 11/05/2008 Iay-CGGXL-54 ( season) 2023 021, 08/18/2020 Alcohol and Drug Screen 04/16/2024 Depression Annual Screen 04/16/2024 Imm-Influenza (#1) 2024 01/18/2024 Dental BW 08/08/2025 08/06/2024 Dental Examination 08/08/2025 08/06/2024 Dental Prophy 08/08/2025 08/06/2024 Tobacco Screening 09/10/2025 09/10/2024 Diabetes Screening 01/22/2027 01/23/2024, 1 , 01/23/2024 Hypertension Screening (#1) 09/10/2027 Dental FMX/Pano 08/08/2029 08/06/2024 Imm-DTaP/Tdap/Td (3 - Td or Tdap) 03/22/2030 020, 09/13/2018 HIV Screening Completed 07/17/2018 Hepatitis C Screening Completed 01/23/2024 , 01/23/2024, 11/29/2018 Cervical Ablation/Cold-Knife Conization Discontinued Cervical Cryotherapy Discontinued Colposcopy Discontinued Endometrial Biopsy Discontinued Excision/Leep Discontinued HPV Genotyping Discontinued Vaginal Pap Discontinued Vulvoscopy Discontinued Procedures Procedure Name Priority Date/Time Associated Diagnosis Comments CASE PRESENTATION SUBS DTL & EXTENSIVE TX PLN Routine 09/10/2024 9:00 AM EDT Fracture of crown, enamel, and dentin of tooth without pulp exposure 8 [place] RESIN-BASED COMPOSITE TWO SURFACES ANTERIOR Routine 09/10/2024 [...] 1:00 PM EDT Abfraction Caries Defective dental oriental orthodox Encounter for dental examination COMP ORAL EVALUATION [...] EDT from Last 3 Months Insurance H[facility] ([facility]) Member Subscriber Plan / Payer ( fective 2020-Present) Name:Mabel Rawls Relation to Subscriber:Self Name:Mabel Rawls Payer ID:[id number] Type:Indemnity Address: [address] [place] [address] DENTAL Care Teams Salt Lifter Relationship Specialty Start Date End Date Rika Kurtz FNP [facility] [place] [address] PCP - General Internal Medicine 01/19/21
== END 2024-11-03 15:53 | disposition home or self-care (01) ==
LOC: HO.US 15:52
PROVIDERS: Visit Provider Advanced Practice Midwife
DX: R10.2 Pelvic and perineal pain (principal); N83.209 Unspecified ovarian cyst, unspecified side
CPT/HCPCS: 76830; 76856

== ENCOUNTER → 2024-11-03 15:54 | Outpatient (BNV) | payer OTHER, SELFPAY | PROVIDERS: Visit Provider Radiology Diagnostic Radiology | DX: N83.201 Unspecified ovarian cyst, right side (principal); R10.2 Pelvic and perineal pain | CPT/HCPCS: 76830 ==

== ENCOUNTER 2024-11-12 09:58 | Outpatient (AMB) | payer OTHER, SELFPAY ==
--- NOTE | 2024-11-12 09:40 | A.OFFVIS_ITS ---
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 Time spent included review of pertinent office notes in the electronic health record; review of laboratory and imaging results; review of personal family medical history; discussing diagnosis and plan of care with the patient; documenting the encounter in the EMR. Patient presents to discuss: Follow up ultrasound history of complex ovarian cyst previously 6.6 cm. Has dual care with Dr. Seth Tafoya, [employer] ([place], [place]) seen for infertility for the last year. Reports tumor markers ordered by Dr. Tafoya were negative. He has reviewed her records and she has a plan to follow up with him with the ultrasound in 3 months. 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 She reports occasional pain on the right side. [facility] Medical History (Updated 11/12/24 @ 13:17 by Christin Duff CNM) Complex ovarian cyst Pelvic pain Palpitations Surgical History Hx of endoscopy History of esophagogastroduodenoscopy (EGD) History of repair of congenital atrial septal defect (ASD) History of left oophorectomy History of appendectomy History of open heart surgery Family History Mother No problems noted. Father No problems noted. Brother CAD (coronary artery disease) Daughter No problems noted. Maternal Aunt Colon cancer Social History Household Members: Spouse and Children Household Members Other:: daughter Housing: Apartment Alcohol intake: current Alcohol intake frequency: holidays/special occasions only Comment: social- rarely Patient Tobacco Use Status: Never used Tobacco e-Cigarette/Vaping Use: Never Used Second Hand Smoke Exposure: No Patient : No Current occupational status: employed Current occupation: [employer] Sexual orientation: Straight/Heterosexual Gender identity: Female Cognitive needs: No Hearing needs: No Vision needs: No Female Reproductive History Menstrual Age of Menarche: 15 Review of Systems Const All systems reviewed & are unremarkable except as noted in HPI and below Endo Reports no additional complaints Physical Exam Const General: cooperative, healthy appearing and no acute distress Psych Appearance: well kempt Attitude: cooperative Thought process: Normal thought process present Telehealth Telehealth Telehealth Platform: [facility] Location of provider rendering services: practice address Location of patient: address on file Patient Identification confirmed using: Name, : Yes Telehealth method: video Patient verbally consented to treatment: Yes Patient verbally consented to billing insurance company: Yes Patient informed of any privacy concerns related to visit: Yes Results Reviewed Results Reviewed: [address] [address] Ultrasound Report Signed Patient: Mabel Rawls MR#: [id number] : 1985 Acct:[id number] Age/Sex: 38 / F ADM Date: 11/03/24 Loc: HO.US Attending Dr: Christin Duff CNM Ordering Physician: Christin Duff CNM Date of Service: 11/03/24 Procedure(s): US pelvic and transvaginal Accession Number(s): [id number] cc: Christin Duff CNM~ CLINICAL HISTORY: R10.2 - Pelvic and perineal pain --- Additional Notes or S pecial Instructions: repeat 6 wks follow up US pelvis transabdominal and transvaginal with Doppler Comparison: US/SR - US PELVIS TRANSABDOMINAL AND TRANSVAGINAL - 09/26/24 16:29 EDT Findings: Transabdominal scanning performed for overall anatomy. Transvaginal scanning performed for additional detail. Anteverted uterus is 9.7 cm length. Normal myometrium. No endometrial lesion, 8 mm thickness. Right ovary 7.0 x 4.1 x 5.7 cm. Complex cyst measuring 6.0 x 3.8 x 4.6 cm Left ovary is not seen. Normal color Doppler with arterial/venous spectral tracing of the right ovary and left adnexa. No free fluid. IMPRESSION: 1. Stable to slight decrease in size of complex right ovarian cyst. Given its persistence, gynecologic consultation is recommended to assess for neoplasm. This document has been electronically signed by: Az Farr MD on 11/04/2024 15:40:42 Dictated By: Az Farr MD Signed By: <Electronically signed by Az Farr MD in OV> 11/04/24 1541 DD/ 1540 TD/TT: 11/04/24 1540 Yarn Carrier: Assessment & Plan Assessment & Plan (1) Complex ovarian cyst: Comment: pt transferred care to Dr. Seth Jane [place], [place] Code(s): N83.299 - Other ovarian cyst, unspecified side Category: Medical Plan: Counseled patient neoplasm can not be excluded. Would need to have follow up regularly to monitor cyst and report immediately to Dr. Philippe office if jimenez ving any increase in pain, pelvic discomforts including bloating or pressure, irregular bleeding. Reviewed warnings for ovarian torsion Plan Discussed: Ultrasound findings- IMPRESSION: 1. Stable to slight decrease in size of complex right ovarian cyst. Given its persistence, gynecologic consultation is recommended to assess for neoplasm. Discuss transition of care should be complete and followed by Dr. Tafoya exclusively, and not continued with fragmented care with a services here in the special events planner. She can continue having your imaging of the hospital here but would be requiring Dr. Tafoya to put the orders in place and to follow up with his department for care. The patient expressed understanding and agreement with the plan of care. All of her questions and concerns were addressed to the best of my ability. . Coding Level of Care Code Tele Est Pt Level 3 (77771) Diagnoses Complex ovarian cyst N83.299
--- OUTSIDE RECORDS SUMMARY | 2024-11-12 10:42 | XMS_ITS | Clinical Summary ---
Author Organization [facility] Address [address] [place] [address] Care Team Providers Care Seismographer Name Role Phone Eliza Stark MD Primary [...] 01/23/2024 Last Assessment & Plan: Sees a fuel operator every 6 months who has recommended Flagyl [...] age to complete this topic Care Teams Seismographer Relationship Specialty Start Date End Date Eliza Stark MD PCP - General Family Medicine 01/23/24
--- OUTSIDE RECORDS SUMMARY | 2024-11-12 10:42 | XMS_ITS | Clinical Summary ---
Author Organization [facility] Address [address] [place] [address] Care Team Providers Care Comprehensive Advisor Name Role Phone Rika Kurtz [facility] Primary Care Provider [phone] Source Comments PLEASE NOTE, if this patient [...] 09/10/2024 9:00 AM EDT Office Visit [address] [phone] Cristo De La Cruz DMD 08/27/2024 11:00 AM EDT Office Visit [address] [phone] Cristo De La Cruz DMD from Last 3 Months Social History Tobacco [...] Care Team (Late st Contact Info) Description 12/17/2024 9:00 AM EDT Office Visit [facility] [address] [place] [phone] Cristo De La Cruz DMD [address] [place] [address] 02/11/2025 10:20 AM EDT Office Visit [facility] [address] [place] [phone] Cherise Frost, RHD [address] [place] [address] Health Maintenance Due Date Last Done Comments Anxiety Screening 1985 Dental Perio Charting 1985 HPV Screening 1985 Pap + HPV 1985 Relationship Safety Screening/Counseling 11/05/2002 Imm-Hepatitis B (1 of 3 - 19 + 3-dose series) 11/05/2006 Cervical Cancer Screening 11/05/2008 Pap Smear 11/05/2008 [id number] ( season) 2023 021, 08/18/2020 Alcohol and [...] dentin of tooth without pulp exposure 8 ID RESIN-BASED COMPOSITE TWO SURFACES ANTERIOR Routine 09/10/2024 [...] AM EDT Caries Caries of enamel (incipient) INTRAORAL - COMP SERIES OF RADIOGRAPHIC IMAGES Routine 08/06/2024 1:00 PM EDT Abfraction Caries Defective dental amish Encounter for dental examination PROPHYLAXIS - ADULT Routine 08/06/2024 1 :00 PM EDT Abfraction Caries Encounter for dental examination COMP ORAL EVALUATION - NEW/ESTABLISHED PATIENT Routine 08/06/2024 1:00 PM EDT Caries Encounter for dental examination from Last 3 Months or Most Recently Relevant to Health Maintenance Insurance [facility]) Member Subscriber Plan / Payer ( fective 2020-Present) Name:Mabel Rawls Relation to Subscriber:Self Name:Mabel Rawls Payer ID:[id number] Type:[employer] Address: [address] [place] [address] DENTAL Care Teams Comprehensive Advisor Relationship Specialty Start Date End Date Rika Kurtz FNP [facility] [place] [address] PCP - General Internal Medicine 01/19/21
--- OUTSIDE RECORDS SUMMARY | 2024-11-12 10:43 | XMS_ITS | Clinical Summary ---
Author Organization [facility] Address [address] [place] [address] Care Team Providers Care Supervisor Microbiology Technologists Name Role Phone Pcp, No Primary Care Provider Unavailabl e Medications Fluocinolone Acetonide 0.01 % OilIndications: Chronic serous otitis media, bilateral PLACE 4 DROP(S) IN EACH AFFECTED EAR TWICE DAILY FOR 7 DAYS 20 each 1 03/10/2024 Active Social History Tobacco Use Types Packs/Day Years [...] patient's age to complete this topic Insurance [employer] Care Teams Supervisor Microbiology Technologists Relationship Specialty Start Date End Date Pcp, No [address] [place] [address] PCP - General 10/06/22
--- OUTSIDE RECORDS SUMMARY | 2024-11-12 10:43 | XMS_ITS | Clinical Summary ---
Author Organization [facility] [address] Address [address] [place] [address] Phone Care Team Providers Care Project Construction Assistant Manager Name Role Phone Eliza Stark MD Primary Care Provider [phone] Allergies No known active allergies Active Problems [...] for oral antibiotic to be sent to [facility] pharmacy for diffuse otitis externa, I suspect otitis media as well given TM findings. Will have her trial augmentin wit some pseudomonas coverage. - Advise to continue avoiding water in ears - Follow up with ENT specialist as soon as possible Immunizations Name Administration Dates Next Due Influenza [...] - [place] [address] [place] [phone] Eliza Stark MD [address] [place] [address] Health Maintenance Due Date Last Done Comments Hepatitis B Vaccines (1 of 3 - 19+ 3-dose series) 11/05/2006 COVID-19 Vaccine ( - 2023-2 5 season) 2023 HIV Screening [...] patient's age to complete this topic Insurance [facility]) Care Teams Project Construction Assistant Manager Relationship Specialty Start Date End Date Eliza Stark MD [address] [place] [id number] PCP - General 01/28/24
== END 2024-11-12 11:48 | disposition home or self-care (01) ==
LOC: HO.HWS 09:58
PROVIDERS: Visit Provider Advanced Practice Midwife
DX: N83.299 Other ovarian cyst, unspecified side (principal)
CPT/HCPCS: 99213

== ENCOUNTER 2024-12-17 10:06 | Emergency (ER) | payer OTHER, SELFPAY ==
--- NOTE | ~2024-12-17 | US_ITS ---
EXAMINATION: US PELVIS WITH DOPPLER. CLINICAL INFORMATION: Right lower quadrant pain, pelvic pain, history of cysts. The left ovary has been previously removed. COMPARISON: 11/03/2024. TECHNIQUE: Ultrasound of the pelvis is performed using both transabdominal and transvaginal transducers along with Doppler. Transvaginal imaging is performed due to inadequate visualization transabdominally. FINDINGS: Uterus: The uterus is anteverted and measures 9.0 x 3.9 x 6.3 cm. The cervix has a normal appearance. The double wall endometrial thickness is 11 mm. The uterus is smooth in contour and has normal myometrial echogenicity. No visible fibroid. Adnexa: The right ovary is visualized. There is normal color flow to the right adnexa. There is no ovarian torsion. There is moderate volume mildly complex appearing free pelvic fluid. This is likely secondary to a recently ruptured ovarian cyst. Right ovary measures 7.9 x 5.2 x 5.0 cm. Volume = 107.3 mL. There is a crenated-appearing cyst with mild specular echoes internally, possibly a recently ruptured ovarian cyst. In addition there is a mildly complex cyst with lacy internal echoes measuring 3.7 x 3.7 x 3.6 cm, most likely a hemorrhagic cyst. No solid component or mural nodularity present. The left ovary is surgically absent. No left adnexal abnormalities. US/US pelvic ovarian doppler IMPRESSION: 1. There is a crenated-appearing right ovarian cyst with mild specular internal echoes most likely a recently ruptured hemorrhagic cyst. There is moderate volume mildly complex fluid in the cul-de-sac. There is no evidence of ovarian torsion. 2. There is a 3.7 x 3.7 x 3.6 cm hemorrhagic appearing cyst in the right ovary as well. 3. The left ovary has been surgically removed. 4. Normal uterus and endometrium. Electronically signed by: Rufus Pereira MD 12/17/2024 12:47 PM EDT
--- NOTE | ~2024-12-17 | US_ITS ---
EXAMINATION: US PELVIS WITH DOPPLER. CLINICAL INFORMATION: Right lower quadrant pain, pelvic pain, history of cysts. The left ovary has been previously removed. COMPARISON: 11/03/2024. TECHNIQUE: Ultrasound of the pelvis is performed using both transabdominal and transvaginal transducers along with Doppler. Transvaginal imaging is performed due to inadequate visualization transabdominally. FINDINGS: Uterus: The uterus is anteverted and measures 9.0 x 3.9 x 6.3 cm. The cervix has a normal appearance. The double wall endometrial thickness is 11 mm. The uterus is smooth in contour and has normal myometrial echogenicity. No visible fibroid. Adnexa: The right ovary is visualized. There is normal color flow to the right adnexa. There is no ovarian torsion. There is moderate volume mildly complex appearing free pelvic fluid. This is likely secondary to a recently ruptured ovarian cyst. Right ovary measures 7.9 x 5.2 x 5.0 cm. Volume = 107.3 mL. There is a crenated-appearing cyst with mild specular echoes internally, possibly a recently ruptured ovarian cyst. In addition there is a mildly complex cyst with lacy internal echoes measuring 3.7 x 3.7 x 3.6 cm, most likely a hemorrhagic cyst. No solid component or mural nodularity present. The left ovary is surgically absent. No left adnexal abnormalities. US/US pelvic and transvaginal IMPRESSION: 1. There is a crenated-appearing right ovarian cyst with mild specular internal echoes most likely a recently ruptured hemorrhagic cyst. There is moderate volume mildly complex fluid in the cul-de-sac. There is no evidence of ovarian torsion. 2. There is a 3.7 x 3.7 x 3.6 cm hemorrhagic appearing cyst in the right ovary as well. 3. The left ovary has been surgically removed. 4. Normal uterus and endometrium. Electronically signed by: Rufus Pereira MD 12/17/2024 12:47 PM EDT
--- NOTE | ~2024-12-17 | CT_ITS ---
EXAMINATION: CT ABDOMEN AND PELVIS WITH CONTRAST CLINICAL INFORMATION: RLQ pain COMPARISON: Same-day ultrasound TECHNIQUE: Multidetector volumetric images were obtained from the superior aspect of the liver through the pubic symphysis following administration 85 mL of Omnipaque 350 intravenous contrast. Sagittal and coronal reformatted images were obtained on the technologist's workstation. Oral contrast: No This CT examination was performed using dose optimization techniques as appropriate, variously including the following: *Automated exposure control *Adjustment of mA and/or kV according to patient size (this includes techniques or standardized protocols for targeted exams where dose is matched to indication/reason for exam; i.e. extremities or head) *Use of iterative reconstruction technique DLP: 538 mGY*cm FINDINGS: LUNG BASES: The visualized lung bases are unremarkable. LIVER, GALLBLADDER, AND BILIARY TREE: The liver is normal in size, shape, and attenuation. No focal hepatic lesion or biliary ductal dilatation is present. The gallbladder is unremarkable with no evidence of radiopaque gallstones, gallbladder wall thickening, or obvious pericholecystic inflammatory changes. PANCREAS: Unremarkable. SPLEEN: Unremarkable. ADRENAL GLANDS: Unremarkable. KIDNEYS AND URETERS: The kidneys are normal in size, shape, and attenuation. No hydronephrosis, hydroureter, or calculi seen. No perinephric stranding. BLADDER: Unremarkable. GASTROINTESTINAL TRACT: The small and large bowel are unremarkable. The appendix is nonvisualized. There is fluid along the inferomedial margin of the cecum tracking to the right adnexa ABDOMINAL WALL: Small umbilical hernia contains adipose tissue. LYMPH NODES: Normal. VASCULAR: Unremarkable. PELVIC VISCERA: There is moderate free fluid in the right adnexa. There is a complex multiloculated right ovarian cyst measuring 4.2 x 6.6 cm. On today's ultrasound, this appeared to be one hemorrhagic cyst and an adjacent crenulated rupturing cyst. Left ovary is surgically absent. The uterus is unremarkable aside from small focal calcification in the left frontal region. OSSEOUS STRUCTURES: Unremarkable. CT/CT abdomen pelvis w IV con IMPRESSION: The appendix is nonvisualized. Complex right ovarian cystic mass and moderate free fluid. Ultrasound performed today indicates the presence of a rupturing right ovarian cyst and a hemorrhagic cyst. Fleischner guidelines were followed. Electronically signed by: Emanuel Velasquez MD 12/17/2024 01:38 PM EDT RP
[2024-12-17 10:10] VITALS: BP 127/67; PULSE 76; RESP 18; TEMP 36.8; O2SAT 99; BMI 25.6
[2024-12-17 10:29] LABS: MANUAL DIFF FLAG NO
[2024-12-17 10:32] LABS: UPreg QC Valid YES
[2024-12-17 10:34] LABS: Appearance Urine Clear; Glucose Urine UA Negative (Negative); Hematocrit 39.2 % (37.0-47.0); Hemoglobin 13.1 g/dl (12.0-16.0); Imm Gran Abs Auto 0.07 X10*3/uL (0.00-0.03); Imm Gran Pct Auto 0.4 % (0.0-0.4); Lymphocytes Absolute Auto 1.5 X10*3/uL (1.2-4.9); Mean Corpuscular HGB Conc 33.4 g/dl (31.0-35.0); Mean Corpuscular Hemoglobin 28.8 pg (27.0-33.0); Mean Corpuscular Volume 86.2 fL (80.0-98.0); NRBC Abs Auto 0.000 X10*3/uL (0.0-0.012); NRBC Pct Auto 0.0 /100WBC (0.0-0.2); PH 7.0 (5.0-9.0); Platelet Count 258 X10*3/uL (160-400); Red Blood Count 4.55 X10*6/uL (4.20-5.50); Specific Gravity - Urine 1.015 (1.005-1.025); White Blood Count 16.2 X10*3/uL (4.8-10.8)
[2024-12-17 10:46] LABS: Anion Gap 11 (12-20); Blood Urea Nitrogen 11 mg/dL (9-16); Calcium 9.3 mg/dL (8.4-10.2); Carbon Dioxide 25 mmol/L (22-29); Chloride 106 mmol/L (96-108); Creatinine Clr Calc Pharmacy 120.4; Estimated Glomerular Filt Rate > 60; Potassium 4.3 mmol/L (3.3-5.1); Sodium 138 mmol/L (135-145)
--- NOTE | 2024-12-17 10:52 | ED_ITS ---
HPI - Abdominal Pain General Chief Complaint: Abdominal Pain Stated Complaint: lower abd pain Time Seen by Provider: 12/17/24 10:52 Source: patient and family (carlito) Mode of arrival: ambulatory Limitations: no limitations History of Present Illness ED Provider: JOCELYN DIAS PA-C HPI narrative: 39 year old female with pmhx significant for left ovarian cyst s/p left oophorectomy, IBS presents to the ED today with severe right lower abdominal pain which woke her from her sleep around 0700 this morning. Pain is exacerbated with movement, somewhat relieved with hunching over . She reports taking Tylenol around 0945 this morning with mild relief of pain. Pain is described as a cramping/ abel sensation. Associated loss of appetite and burning with urination this morning. She states she was diagnosed with a cyst to her right ovary a few months ago that her physician is watching. Since diagnosis, she has had intermittent pain to her right lower abdomen which became more severe this morning. Surgical history includes appendectomy, left oophorectomy, and open heart surgery. Related Data Previous Rx's ?Medication ?Instructions ?Recorded vitamins with calcium 1 tab PO DAILY #90 tabs 08/26/24 no.72-iron 27 mg-folic acid 1 mg tablet ( Vitamins Plus Low Iron) ketorolac 10 mg tablet 10 mg PO Q8H 5 days #15 tabs 12/17/24 Allergies Allergy/AdvReac Type Severity Reaction Status Date / Time No Known Allergies Allergy Verified 12/17/24 10:12 Review of Systems Review of Systems Yes all other systems are reviewed and are negative PMFSH Past Medical History Attestation statement: The following information was validated with the patient. Source: old records reviewed and nursing notes reviewed Medical History Complex ovarian cyst Pelvic pain Palpitations Surgical History Hx of endoscopy History of esophagogastroduodenoscopy (EGD) History of repair of congenital atrial septal defect (ASD) History of left oophorectomy History of appendectomy History of open heart surgery Family History Family History Mother No problems noted. Father No problems noted. Brother CAD (coronary artery disease) Daughter No problems noted. Maternal Aunt Colon cancer Social History Social History Household Members: Spouse and Children Household Members Other:: daughter Housing: Apartment Unable to assess alcohol history related to: Unknown Alcohol intake: current Alcohol intake frequency: holidays/special occasions only Comment: social- rarely Patient Tobacco Use Status: Never used Tobacco Smoked in Last 30 Days: No e-Cigarette/Vaping Use: Never Used Second Hand Smoke Exposure: No Use of substances other than those prescribed or required for medical reasons: Unknown Advance Directives: No Advance Directives Information Provided: Yes Do you have a plan to hurt others: No Plan Patient : No Current occupational status: employed Current occupation: [employer] Sexual orientation: Straight/Heterosexual Gender identity: Female Cognitive needs: No Hearing needs: No Vision needs: No Physical Exam ED Vital Signs: Vital Signs - 24 hr 12/17/24 10:10 12/17/24 14:22 Temperature 98.3 F 98.3 F Pulse Rate 76 76 Respiratory Rate 18 18 Blood Pressure 127/67 127/67 Pulse Oximetry 99 99 Oxygen Delivery Method Room Air Room Air BMI result Body Mass Index 25.6 vital signs stable General: Well appearing, in no acute distress. Skin: Warm, dry, intact. No rashes or lesions. Head: Normocephalic, atraumatic. EENT: Hearing is intact b/l. Conjunctiva clear. PERRLA. EOM intact. Moist mucous membranes.? Cardiac: Chest wall symmetric. RRR Lungs: Normal respiratory effort without accessory muscle use. CTA bilaterally Abdomen: soft, nondistended, tender to palpation of lower abdomen with mild guarding, no rebound, no McBurney point tenderness, active bowel sounds x4. Ext: Upper and lower extremities atraumatic, without tenderness, deformity, swelling or erythema Neuro: AOx3. Normal speech. Ambulating with steady gait. Course Course Course Narrative: 1100 -- CBC showing leukocytosis to 16.2 with left shift. No anemia. H&H stable. Chemistry without acute electrolyte abnormality requiring intervention. Urine without infection. Urine negative. > I have reviewed pelvic ultrasound from 11/04/2024: Right ovary 7.0 x 4.1 x 5.7 cm. Complex cyst measuring 6.0 x 3.8 x 4.6 cm Given known 6 cm right ovarian cyst, acute pain an elevated white count, there is concern for torsion. ultrasound ordered. 1130 -- call out to ultrasound 1400 -- Pelvic ultrasound showing right ovarian cyst with mild spectacular internal echoes most likely a recent ruptured hemorrhagic cyst with moderate volume mildly complex fluid in the cul-de-sac. No evidence of ovarian torsion. There is a 3.7 x 3.7 x 3.6 hemorrhagic appearing cyst in the right ovary as well. Left ovary surgically removed. Normal uterus and endometrium. CT abdomen/pelvis shows redemonstration of complex right ovarian cystic mass and moderate free fluid. Appendix is not visualized as she is status post appendectomy. No other acute findings. Discussed results of workup with patient. On re-evaluation, she reports significant improvement in discomfort after receiving IV Toradol. Her symptoms are consistent with ruptured ovarian cyst. She is hemodynamically stable with otherwise unremarkable workup. After discussion, patient will be discharged home with pain control and strict return precautions. I advised follow up with helpdesk manager this week. She states she will call their office. Patient has remained stable throughout ED visit today. Discussed worrisome signs and symptoms and when to return to the ED. All questions answered at this time. Patient is agreeable with disposition and stable for discharge. Medical Decision Making Medical Decision Making MDM Narrative: 39 year old female with pmhx significant for left ovarian cyst s/p left oophorectomy, IBS presents to the ED today with severe right lower abdominal pain which woke her from her sleep around 0700 this morning. vital signs stable. she is well appearing and in NAD. on exam, abdomen soft, nondistended, tender to palpation of lower abdomen with mild guarding, no rebound, no McBurney point tenderness, active bowel sounds x4. Differential diagnoses: diverticulitis, diverticulosis, UTI, IUP, constipation Abdominal exam without peritoneal signs. No evidence of acute abdomen at this time. Well appearing. Low suspicion for acute hepatobiliary disease (including acute cholecystitis), acute infectious processes (pneumonia, hepatitis, pyelonephritis, PID, TOA), vascular catastrophe, bowel obstruction or viscus perforation, ovarian cyst/ rupture/ torsion, ectopic. Presentation not consistent with other acute, emergent causes of abdominal pain at this time. Plan: labs, UA, ultrasound, pain control, serial reassessment Differential Diagnosis Differential Diagnoses: The differential diagnosis associated with the presentation includes as above. Admission/Observation not indicated. Lab Data MDM Lab Attestation statement: I reviewed the patient's lab results. as above. 12/17/24 10:20 12/17/24 10:20 Labs: Lab Results 12/17/24 12/17/24 Range/Units 10:20 11:45 WBC 16.2 H (4.8-10.8) X10*3/uL RBC 4.55 (4.20-5.50) X10*6/uL Hgb 13.1 (12.0-16.0) g/dl Hct 39.2 (37.0-47.0) % MCV 86.2 (80.0-98.0) fL MCH 28.8 (27.0-33.0) pg MCHC 33.4 (31.0-35.0) g/dl RDW 13.3 (11.0-16.0) % Plt Count 258 (160-400) X10*3/uL MPV 9.7 (9.4-12.3) fL Immature Gran % (Auto) 0.4 (0.0-0.4) % Neut % (Auto) 85.4 H (45-73) % Lymph % (Auto) 9.4 L (20-40) % [place] % (Auto) 4.1 (2-11) % Eos % (Auto) 0.4 (0-4) % Baso % (Auto) 0.3 (0-2) % Lymph # (Auto) 1.5 (1.2-4.9) X10*3/uL [place] # (Auto) 0.7 (0.1-1.2) X10*3/uL Eos # (Auto) 0.1 (0.0-0.4) X10*3/uL Baso # (Auto) 0.1 (0.0-0.2) X10*3/uL Abs Immat Gran (auto) 0.07 H (0.00-0.03) X10*3/uL Absolute Neuts (auto) 13.8 H (2.0-8.3) x10*3/uL Absolute Nucleated RBC 0.000 (0.0-0.012) X10*3/uL Nucleated RBC % (auto) 0.0 (0.0-0.2) /100WBC Sodium 138 (135-145) mmol/L Potassium 4.3 (3.3-5.1) mmol/L Chloride 106 (96-108) mmol/L Carbon Dioxide 25 (22-29) mmol/L Anion Gap 11 L (12-20) BUN 11 (9-16) mg/dL Creatinine 0.65 (0.5-1.4) mg/dL Estim Creat Clear Calc 120.4 Estimated GFR > 60 Random Glucose 90 (60-115) mg/dL Lactic Acid 0.8 (0.5-2.0) mmol/L Calcium 9.3 (8.4-10.2) mg/dL Total Bilirubin 0.7 (0.0-1.0) mg/dL Direct Bilirubin 0.2 (0.0-0.5) mg/dL AST 29 (5-31) U/L ALT 40 H (0-31) U/L Alkaline Phosphatase 78 (39-117) U/L Total Protein 7.1 (6.5-8.0) g/dL Albumin 4.4 (3.5-5.0) g/dL Urine Color Yellow Urine Appearance Clear Urine pH 7.0 (5.0-9.0) Ur Specific [place] 1.015 (1.005-1.025) Urine Protein Negative (Neg-Trace) mg/dL Urine Glucose (UA) Negative (Negative) mg/dL Urine Ketones Negative (Negative) mg/dL Urine Blood Negative (Negative) Urine Nitrite Negative (Negative) Ur Leukocyte Esterase Negative (Negative) Urine Test NEGATIVE (NEGATIVE) Independent Interpretation I performed an independent interpretation of an: Ultrasound Interpretation: ultrasound 11/04/24 w/ right ovarian cyst pelvic us today showing cyst to right ovary, normal blood flow ct a/p with contrast without bowel wall thickening Radiology Impression Discussion of test interpretation with radiology: I have reviewed the radiologist's reading. Radiologist Impression: Procedure(s): US pelvic and transvaginal Accession Number(s): [id number] cc: Christin Duff CNM~ CLINICAL HISTORY: R10.2 - Pelvic and perineal pain --- Additional Notes or Special Instructions: repeat 6 wks follow up US pelvis transabdominal and transvaginal with Doppler Comparison: US/SR - US PELVIS TRANSABDOMINAL AND TRANSVAGINAL - 6/13/25 16:29 EDT Findings: Transabdominal scanning performed for overall anatomy. Transvaginal scanning performed for additional detail. Anteverted uterus is 9.7 cm length. Normal myometrium. No endometrial lesion, 8 mm thickness. Right ovary 7.0 x 4.1 x 5.7 cm. Complex cyst measuring 6.0 x 3.8 x 4.6 cm Left ovary is not seen. Normal color Doppler with arterial/venous spectral tracing of the right ovary and left adnexa. No free fluid. IMPRESSION: 1. Stable to slight decrease in size of complex right ovarian cyst. Given its persistence, gynecologic consultation is recommended to assess for neoplasm. This document has been electronically signed by: Az Farr MD on 11/04/2024 15:40:42 Procedure(s): CT abdomen pelvis w IV con Accession Number(s): [id number] cc: Physician,Unknown ; Jocelyn Dias~ Report Number: [id number]: Total DLP = 538.00 mGy-cm Reason for Exam: RLQ pain EXAMINATION: CT ABDOMEN AND PELVIS WITH CONTRAST CLINICAL INFORMATION: RLQ pain COMPARISON: Same-day ultrasound TECHNIQUE: Multidetector volumetric images were obtained from the superior aspect of the liver through the pubic symphysis following administration 85 mL of Omnipaque 350 intravenous contrast. Sagittal and coronal reformatted images were obtained on the technologist's workstation. Oral contrast: No This CT examination was performed using dose optimization techniques as appropriate, variously including the following: *Automated exposure control *Adjustment of mA and/or kV according to patient size (this includes techniques or standardized protocols for targeted exams where dose is matched to indication/reason for exam; i.e. extremities or head) *Use of iterative reconstruction technique DLP: 538 mGY*cm FINDINGS: LUNG BASES: The visualized lung bases are unremarkable. LIVER, GALLBLADDER, AND BILIARY TREE: The liver is normal in size, shape, and attenuation. No focal hepatic lesion or biliary ductal dilatation is present. The gallbladder is unremarkable with no evidence of radiopaque gallstones, gallbladder wall thickening, or obvious pericholecystic inflammatory changes. PANCREAS: Unremarkable. SPLEEN: Unremarkable. ADRENAL GLANDS: Unremarkable. KIDNEYS AND URETERS: The kidneys are normal in size, shape, and attenuation. No hydronephrosis, hydroureter, or calculi seen. No perinephric stranding. BLADDER: Unremarkable. GASTROINTESTINAL TRACT: The small and large bowel are unremarkable. The appendix is nonvisualized. There is fluid along the inferomedial margin of the cecum tracking to the right adnexa ABDOMINAL WALL: Small umbilical hernia contains adipose tissue. LYMPH NODES: Normal. VASCULAR: Unremarkable. PELVIC VISCERA: There is moderate free fluid in the right adnexa. There is a complex multiloculated right ovarian cyst measuring 4.2 x 6.6 cm. On today's ultrasound, this appeared to be one hemorrhagic cyst and an adjacent crenulated rupturing cyst. Left ovary is surgically absent. The uterus is unremarkable aside from small focal calcification in the left frontal region. OSSEOUS STRUCTURES: Unremarkable. CT/CT abdomen pelvis w IV con IMPRESSION: The appendix is nonvisualized. Complex right ovarian cystic mass and moderate free fluid. Ultrasound performed today indicates the presence of a rupturing right ovarian cyst and a hemorrhagic cyst. Fleischner guidelines were followed. Electronically signed by: Emanuel Velasquez MD 12/17/2024 01:38 PM EDT Independent Historian Clinical information obtained from an independent historian. History obtained from or confirmed by: Spouse External Record Review External record reviewed: Inpatient record Prescription Management I considered prescription management with: Pain Medication Chronic Conditions Patient?s care impacted by: Other (ovarian cyst ) Social Determinants Patient?s care significantly limited by Social Determinants of Health including: Other Social Determinant of Health Medications Administered Discontinued Medications Generic Name Dose Route Start Last Admin Trade Name Freq PRN Reason Stop Dose Admin Iohexol 100 ml 12/17/24 13:08 12/17/24 13:11 Iohexol 350 Mg/Ml 100 Ml Infus..Btl IV 12/17/24 13:09 85 ml ONCE ONE Administration Ketorolac Tromethamine 30 mg 12/17/24 11:13 12/17/24 11:30 Ketorolac Tromethamine 30 Mg/Ml Vial IVPUSH 12/17/24 11:14 30 mg ONCE ONE Administration Critical Care Time Critical Care Time Critical Care Time: No Discharge Plan Discharge Clinical Impression: Rupture of cyst of right ovary Patient Disposition: Home, Self-Care Instructions: Ovarian Cyst (ED) Additional Instructions: You were evaluated in the ED today for right lower abdominal pain. Your blood work showed an elevated white blood cell count, which is likely a reactive inflammatory response. Your blood work is otherwise reassuring. Your urine is negative for infection and . Both your pelvic ultrasound and the CT scan of your abdomen demonstrate a recently ruptured hemorrhagic cyst to your right ovary. This is likely the cause of your discomfort this morning. Management is pain control. Your pain improved with toradol in ED today. I am sending this to the pharmacy for you to take as needed for pain. Do not take this with other NSAIDs such as motrin/ibuprofen as this can cause increased risk of GI bleeding. Follow up with your OBGYN this week. Return with any new or worsening symptoms such as increasing pain, vaginal bleeding/ clotting, fevers, etc. In the case of an emergency call 911. US pelvic ovarian doppler IMPRESSION: 1. There is a crenated-appearing right ovarian cyst with mild specular internal echoes most likely a recently ruptured hemorrhagic cyst. There is moderate volume mildly complex fluid in the cul-de-sac. There is no evidence of ovarian torsion. 2. There is a 3.7 x 3.7 x 3.6 cm hemorrhagic appearing cyst in the right ovary as well. 3. The left ovary has been surgically removed. 4. Normal uterus and endometrium. Prescriptions: New ketorolac 10 mg tablet 10 mg PO Q8H 5 Days Qty: 15 0RF No Action Vitamin Plus Low Iron 27 mg iron- 1 mg tablet 1 tab PO DAILY Qty: 90 4RF Referrals: [facility] Women's Services [Provider Group] Physician,Unknown J [Primary Care Provider, Medical] Stand Alone Forms: Work/School Release Interventions: ED Discharge Assessment Last Done: 12/17/24 14:22 Discharge Date/Time: 12/17/24 14:32 Print Language: Romansh
[2024-12-17 12:12] LABS: Alanine Aminotransferase 40 U/L (0-31); Albumin Level 4.4 g/dL (3.5-5.0); Alkaline Phosphatase 78 U/L (39-117); Aspartate Amino Transferase 29 U/L (5-31); Total Protein 7.1 g/dL (6.5-8.0)
--- OUTSIDE RECORDS SUMMARY | 2024-12-17 12:21 | XMS_ITS | Clinical Summary ---
Author Organization [facility] [address] Building Address [address] [place] [address] Phone Care Team Providers Care Motorcycle Police Name Role Phone Eliza Stark MD Primary Care Provider [phone] Allergies No known active allergies Active Problems [...] for oral antibiotic to be sent to [facility] pharmacy for diffuse otitis externa, I suspect [...] - [place] [place] [id number] Eliza Stark MD [address] [place] [address] Health Maintenance Due Date Last Done Comments Hepatitis B Vaccines (1 of 3 - 19+ 3-dose series) 11/05/2006 HIV Screening 02/10/2024 Social Influencers of Health Screening 02/10/2024 Cervical Cancer Screening: HPV 10/26/2024 10/27/2019 COVID-19 Vaccine (1 - 2023-2 5 season) 2024 Influenza Vaccine (#1) 2024 01/18/2024 DTaP,Tdap,and Td [...] patient's age to complete this topic Insurance [facility] ([facility]) Care Teams Motorcycle Police Relationship Specialty Start Date End Date Eliza Stark MD [address] [place] [id number] PCP - General 01/28/24
--- OUTSIDE RECORDS SUMMARY | 2024-12-17 12:21 | XMS_ITS | Clinical Summary ---
Author Organization [facility] Address [address] [place] [address] Care Team Providers Care Industrial Sales Manager Name Role Phone Pcp, No Primary Care [...] Orientation Not on file Plan of Treatment Upcoming Encounters Date Type Department Care Team (Late st Contact Info) Description 12/19/2024 10:00 AM EDT Office Visit [facility] [address], [place] [phone] Xavi Esteban MD [address] [place] [id number] Health Maintenance Due Date Last Done Comments Hepatitis C Virus Screening 1987 HIV Screening 11/05/2000 DTaP/Tdap/Td Vaccines (1 - Tdap) 11/05/2006 Hepatitis B Vaccines (1 of 3 - 19+ 3-dose series) 11/05/2006 Pap Smear (Ages 21-65) 11/05/2008 HPV Vaccines (1 - 3-dose SCD M series) 11/05/2014 Influenza Vaccine 11/14/2024 COVID-19 Vaccine (2023-2 5 season) 2024 Pneumococcal Vaccine: Pediat jasper (0-5 Years) and At-Risk Patients (6 to 49 Years) Aged Out No longer eligible b ased on patient's age to complete this topic Insurance [facility] CARVEOUT [facility] CARVEOUT Care Teams Industrial Sales Manager Relationship Specialty Start Date End Date Pcp, No [address] [facility] [place] [address] PCP - General 10/06/22
--- OUTSIDE RECORDS SUMMARY | 2024-12-17 12:21 | XMS_ITS | Clinical Summary ---
Author Organization [facility] Address [address] [place] [address] Care Team Providers Care Airport Operations Coordinator Name Role Phone Rika Kurtz GEOSPATIAL APPLICATIONS DEVELOPER Primary Care Provider [phone] Source Comments PLEASE NOTE, if this patient is a minor, it may be UNLAWFUL to discuss sensitive information that is contained in these records (such as FAMILY PLANNING, MENTAL HEALTH or SUBSTANCE ABUSE) with the minor patient's parent or other person without the patient's specific authorization.[facility] Allergies No known active allergies Medications No known medications Active Problems No known active problems Social History Tobacco Use Types Packs/Day Years [...] Description 02/11/2025 10:20 AM EDT Office Visit Dental [address] [place] [phone] Cherise Frost [address] [place] [address] Health Maintenance Due Date Last Done Comments Anxiety Screening 1987 Dental Perio Charting 1987 HPV Screening 1987 Pap + HPV 1987 Relationship Safety Screening/Counseling 11/05/2002 Imm-Hepatitis B (1 of 3 - 19 + 3-dose series) 11/05/2006 Cervical Cancer Screening 11/05/2008 Pap Smear 11/05/2008 Alcohol and Drug Screen 04/16/2024 Depression Annual Screen 04/16/2024 [id number] ( season) 12/15/20242 021, 08/18/2020 Imm-Influenza (#1) 2024 01/18/2024 Dental BW 08/08/2025 [...] Procedure Name Priority Date/Time Associated Diagnosis Comments INTRAORAL - COMP SERIES OF RADIOGRAPHIC IMAGES Routine 08/06/2024 1:00 PM EDT Abfraction Caries Defective dental caodaism Encounter for dental examination PROPHYLAXIS - ADULT Routine 08/06/2024 1 :00 PM EDT Abfraction Caries Encounter for dental examination COMP ORAL EVALUATION - NEW/ESTABLISHED PATIENT Routine 08/06/2024 1:00 PM EDT Caries Encounter for dental examination from Last 3 Months or Most Recently Relevant to Health Maintenance Insurance [facility] ([facility] Member Subscriber Plan / Payer (Ef fective 2020-Present) Name:Mabel Rawls Relation to Subscriber:Self Name:Mabel Rawls Payer ID:[id number] Type:[employer] Address: [address] [place], [place] [id number] [facility] Care Teams Airport Operations Coordinator Relationship Specialty Start Date End Date Rika Kurtz FNP [address] [place] [id number] PCP - General Internal Medicine 01/19/21
--- OUTSIDE RECORDS SUMMARY | 2024-12-17 12:21 | XMS_ITS | Clinical Summary ---
Author Organization [facility] Address [address] [place] [address] Care Team Providers Care Police Captain Senior Name Role Phone Eliza Stark MD Primary [...] 01/23/2024 Last Assessment & Plan: Sees a internal medicine specialist every 6 months who has recommended Flagyl [...] age to complete this topic Care Teams Police Captain Senior Relationship Specialty Start Date End Date Eliza Stark MD PCP - General Family Medicine 01/23/24
[2024-12-17] MEDS: iohexoL 350 MG/ML 100 ML INFUS..BTL IV (13:11)
[2024-12-17 14:22] VITALS: BP 127/67; PULSE 76; RESP 18; TEMP 36.8; O2SAT 99
== END 2024-12-17 14:32 | disposition home or self-care (01) ==
PROVIDERS: Physician Assistant Medical; Emergency Provider Emergency Medicine Emergency Medical Services
DX: N83.11 Corpus luteum cyst of right ovary (principal); R10.2 Pelvic and perineal pain; R10.31 Right lower quadrant pain; Z79.899 Other long term (current) drug therapy
CPT/HCPCS: 36415; 74177; 76830; 76856; 80048; 80076; 81003; 81025; 83605; 85025; 93975; 96374; 99284; 99285; J1885; Q9967

== ENCOUNTER → 2024-12-17 10:18 | Outpatient (BNV) | payer OTHER, SELFPAY | PROVIDERS: Emergency Provider Emergency Medicine Emergency Medical Services; Visit Provider Radiology Diagnostic Radiology | DX: R10.31 Right lower quadrant pain (principal); R10.2 Pelvic and perineal pain | CPT/HCPCS: 74177; 76830; 76856 ==

== ENCOUNTER 2025-02-09 16:01 | Outpatient (REF) | payer OTHER, SELFPAY ==
--- NOTE | ~2025-02-09 | US_ITS ---
EXAMINATION: US PELVIS CLINICAL INFORMATION: Right ovarian cyst COMPARISON: CT and ultrasound from 12/17/2024 TECHNIQUE: Ultrasound of the pelvis is performed using both transabdominal and transvaginal transducers along with Doppler. Transvaginal imaging is performed due to inadequate visualization transabdominally. FINDINGS: Uterus: The uterus is anteverted and measures 11 x 3 x 5 cm. The double wall endometrial thickness is 15 mm. The uterus is smooth in contour and has normal myometrial echogenicity. No visible fibroid. Adnexa: Both ovaries are visualized. There is normal color flow to the adnexa. There is no ovarian torsion. There is no pelvic ascites or fluid collection. Right ovary measures 8.6 x 5.5 x 7.3 cm. There is a 6.7 x 5.0 x 6.0 cm mass that is uniformly hypoechoic with peripheral blood flow and increased through transmission. Previously, there is a hypoechoic reticulated mass that measures 3.7 x 3.7 x 3.6 cm. Left ovary is surgically absent. US/US pelvic and transvaginal IMPRESSION: 6.7 x 4.0 x 6.0 right ovarian complex cyst has increased in size since the prior examination. This could represent a hemorrhagic cyst or endometrioma. Given interval increase in size, recommend continued follow-up with either ultrasound or MRI in 6-12 weeks. Electronically signed by: Emanuel Velasquez MD 02/09/2025 05:06 PM EDT
--- OUTSIDE RECORDS SUMMARY | 2025-02-09 18:59 | XMS_ITS | Clinical Summary ---
Author Organization [facility] Address [address] [place] [address] Care Team Providers Care Fretted Instrument Repairer Name Role Phone Pcp, No Primary Care Provider Unavailabl e Allergies No known active allergies Medications Fluocinolone Acetonide 0.01 % OilIndications: Dermatitis of ear canal, bilateral Administer 4 drops into both ears 2 times a day. Instill into affected ear as instructed 1 each 1 5 Active Active Problems Problem Noted Date Diagnosed Date Diffuse otitis externa 08/11/2024 Perioral dermatitis 01/23/2024 Overview (12/23/2024): Last Assessment & Plan: Sees a water gas operator every 6 months who has recommended Flagyl and tacrolimus. Asking today for further recommendations, advised patient to follow-up with dermatology. Overweight (BMI 25.0-29.9) 01/23/2024 Overview (12/23/2024): Last Assessment & Plan: BMI counseling done today. Advised on increasing physical activity and discussed dietary modifications including decreasing sweets. 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 On exam, right ear canal noted to be irritated and with dry skin Continue to follow-up with ENT Encounters Date Type Department Care Team Description 12/23/2024 10:45 AM EDT Office Visit [facility] [address] [phone] Xavi Esteban MD Dermatitis of ear canal, bilateral (Primary Dx); Hearing loss secondary to cerumen impaction, bilateral; Chronic serous otitis media, bilateral from Last 3 Months Immunizations Immunization Administration Dates Next Due Influenza, Quadrivalent (FLU ARIX, AFLURIA, FLULAVAL, FLUZONE) Preservative Free IM 01/18/2024 Social History Tobacco Use Types Packs/Day Years Used Date Smoking Tobacco: Never Passive Smoke Exposure: Never Smokeless Tobacco: Never Comments Unknown Sex and Gender Information Value Date Recorded Sex Assigned at Not on file Legal Sex Female 3:43 PM EDT Gender Identity Not on file Sexual Orientation Not on file Last Filed Vital Signs Vital Sign Reading Time Taken Comments Blood Pressure - - Pulse - - Temperature - - Respiratory Rate - - Oxygen Saturation - - Inhaled Oxygen Concentration - - Weight 75.8 kg (167 lb) 12/23/2024 10:44 AM EDT Height 167.6 cm (5' 6 ) 12/23/2024 10:44 AM EDT Body Mass Index 26.95 12/23/2024 10:44 AM EDT Plan of Treatment Upcoming Encounters Date Type Department Care Team (Late st Contact Info) Description 06/22/2025 7:00 AM EDT Office Visit [facility] [address], [place] [phone] Xavi Esteban MD [address] [place] [id number] Health Maintenance Due Date Last Done Comments Hepatitis C Virus Screening 1987 DTaP/Tdap/Td Vaccines (1 - Tdap) 11/05/2006 Hepatitis B Vaccines (1 of 3 - 19+ 3-dose series) 11/05/2006 Pap Smear (Ages 21-65) 11/05/2008 Influenza Vaccine 11/14/2024 01/18/2024 COVID-19 Vaccine ( - 2023-2 5 season) 2024 HIV Screening Completed 07/17/2018 HPV Vaccines (No Doses Required) Completed Pneumococcal Vaccine: Pediat jasper (0-5 Years) and At-Risk Patients (6 to 49 Years) Aged Out No longer eligible b ased on patient's age to complete this topic Insurance [employer] Care Teams Fretted Instrument Repairer Relationship Specialty Start Date End Date Pcp, No [address] [place] [address] PCP - General 10/06/22
--- OUTSIDE RECORDS SUMMARY | 2025-02-09 18:59 | XMS_ITS | Clinical Summary ---
Author Organization [facility] [address] Address [address] [place] [address] Phone Care Team Providers Care Shoe Trimmer Name Role Phone Eliza Stark MD Primary Care Provider [phone] Allergies No known active allergies Active Problems Problem Noted Date Diagnosed Date Annual physical exam 01/28/2025 Assessment & Plan (01/28/2025 9:03 AM EDT): - Last Pap smear conducted in 2023 - Received influenza vaccine on 01/16/2025 - Blood work from the previous year within normal limits, will hold off this year as there has been no significant change in weight. - Weight loss of approximately 3 pounds since last physical examination - Discussed possibility of HPV vaccine considering age and risk factors; advised to consult with mesh cutter - Advised to seek second opinion from another specialist regarding fertility issues as she was not happy with previous provider. - Informed that hormonal blood tests would be more appropriately ordered by a TRADING SPECIALIST specialist if needed. Cyst of ovary 01/28/2025 Assessment & Plan (01/28/2025 9:02 AM EDT): - History of ovarian cysts with recent rupture causing significant pain and requiring emergency visit 1 month ago - Another small cyst found on right ovary, monitored by TRADING SPECIALIST specialist - Last ultrasound 3 months ago showed a 6 cm cyst - Advised to continue monitoring with another ultrasound scheduled next month - She currently denies pain. Diffuse otitis externa 08/11/2024 Assessment & Plan [...] for oral antibiotic to be sent to [facility] pharmacy for diffuse otitis externa, I suspect otitis media as well given TM findings. Will have her trial augmentin wit some pseudomonas coverage. - Advise to continue avoiding water in ears - Follow up with ENT specialist as soon as possible Encounters Date Type Department Care Team Description 01/28/2025 8:30 AM EDT Office Visit [facility] [address] [place] [address] Eliza Stark MD Annual physical exam (Primary Dx); Cyst of ovary, unspecified laterality from Last 3 Months Immunizations Immunization Administration Dates Next Due Influenza Quadravalent, MDCK , 0.5ml, preservative free (Flucelvax) 6mo and older 01/16/2025 Influenza Quadrivalent, 0.5m l, preservative free (Fluarix; FluLaval; Fluzone) ages 6mo and older (Afluria) 3yo and older 01/18/2024 Tdap Tetanus diptheria acell ular pertussis (Boostrix; Adacel) 7yo and older 09/13/2018 Surgical History Surgery Date Site/Laterality Comments APPENDECTOMY PROCEDURE:APPENDECTOMY CARDIAC SURGERY PROCEDURE:CARDIAC SURGERY Medical History Medical History Date Comments Heart murmur DX:Heart murmur Family History Medical History Relation Name Comments Coronary artery disease Brother Hypertension Father Anatoli Thyroid cancer Maternal Grandmother Relation Name Status Comments Brother Father Anatoli Maternal Grandmother Social History Tobacco Use Types Packs/Day Years Used Date Smoking Tobacco: Never Smokeless Tobacco: Never Tobacco Cessation:Counseling Given: Not Answered Alcohol Use Standard Drinks/Week Comments Not Currently 0 (1 standard drink = 0.6 oz pur e alcohol) Housing Instability Answer Date Recorde d Are you worried that in the next 2 months you may not have stable housing? No 01/21/2025 Food Access & Nutrition Answer Date Rec orded Do you have access to a vari ety of food including fruits and vegetables? Yes 01/21/2025 Access to Healthcare Answer Date Record ed Within the last 3 months, ho w many times did you visit the emergency department for your medical care? 1 01/21/2025 Health Literacy Answer Date Recorded How often do you need to hav e someone help you when you read instructions, pamphlets, or other written material from your doctor or pharmacy? Never 01/21/2025 Caregiver: How often do you need to have someone help you when you read instructions, pamphlets, or other written material from your doctor or pharmacy? Not on file 01/21/2025 Financial Risk Answer Date Recorded How hard is it for you to pa y for the very basics like food, housing, medical care, and air conditioning / heating? Not asked 01/21/2025 Transportation Answer Date Recorded Has the lack of transportati on kept you from meetings, work, or from getting things needed for daily living? No Has the lack of transportati on kept you from medical appointments or from getting medications? No 01/21/2025 Social Isolation Answer Date Recorded How often do you feel lonely or isolated from th ose around you? Never 01/21/2025 Food Risk Answer Date Recorded Within the past 12 months we worried whether our food would run out before we got money to buy more. Not asked 01/21/2025 Within the past 12 months th e food we bought just didn't last and we didn't have money to get more. Not asked 01/21/2025 Dependent Care Answer Date Recorded Do you need help finding or paying for care for your loved ones. For example, early childhood teacher assistant or elderly care for an older adult? No 01/21/2025 Education Answer Date Recorded Do you think completing more education or training, like finishing a GED, going to college, or learning a trade, would be helpful for you? No 01/21/2025 Employment and Income Answer Date Recor ded During the last four weeks, have you been actively looking for work? No 01/21/2025 Living Situation Answer Date Recorded What is your living situation? Unrecognized valu e 01/21/2025 Comments Unknown Sex and Gender Information Value Date Recorded Sex Assigned at Not on file Legal Sex Female 1:48 PM EDT Gender Identity Not on file Sexual Orientation Not on file Obstetrics History Last Filed Vital Signs Vital Sign Reading Time Taken Comments Blood Pressure 104/58 01/28/2025 8:26 AM EDT Pulse 78 01/28/2025 8:26 AM EDT Temperature 36.7 C (98 F) 01/28/2025 8:26 AM EDT Respiratory Rate - - Oxygen Saturation 98% 01/28/2025 8:26 AM EDT Inhaled Oxygen Concentration - - Weight 73 kg (161 lb) 01/28/2025 8:26 AM EDT Height 167.6 cm (5' 6 ) 01/28/2025 8:26 AM EDT Body Mass Index 25.99 01/28/2025 8:26 AM EDT Plan of Treatment Health Maintenance Due Date Last Done Comments Hepatitis B Vaccines (1 of 3 - 19+ 3-dose series) 11/05/2006 HPV Vaccines (1 - 3-dose SCD M series) 11/05/2014 HIV Screening 02/10/2024 Cervical Cancer Screening: HPV 10/26/2024 10/27/2019 COVID-19 Vaccine (1 - 2023-2 5 season) 2024 Social Influencers of Health Screening 01/21/2026 01/21/2025 DTaP,Tdap,and Td Vaccines (2 - Td or Tdap) 09/13/2028 09/13/2018 Cholesterol Screening (Lipid Panel) 01/22/2029 01/23/2024, 01/23/2024 RSV Immunization Adult Patients (1 - 1-dose 75+ series) 11/05/2062 Hepatitis C Screening Completed 01/23/2024 , 11/29/2018 Influenza Vaccine Completed 01/16/2025, 01/18/2024 Depression Screening Completed 01/21/2025 HIB Vaccines Aged Out No longer eligi [...] patient's age to complete this topic Insurance [facility]) Care Teams Shoe Trimmer Relationship Specialty Start Date End Date Eliza Stark MD [address] [place] [address] PCP - General 01/28/24
--- OUTSIDE RECORDS SUMMARY | 2025-02-09 18:59 | XMS_ITS | Clinical Summary ---
Author Organization [facility] Address [address] [place] [address] Care Team Providers Care Summer Analyst Name Role Phone Eliza Stark MD Primary [...] 01/23/2024 Last Assessment & Plan: Sees a electronics instructor every 6 months who has recommended Flagyl [...] age to complete this topic Care Teams Summer Analyst Relationship Specialty Start Date End Date Eliza Stark MD PCP - General Family Medicine 01/23/24
--- OUTSIDE RECORDS SUMMARY | 2025-02-09 18:59 | XMS_ITS | Clinical Summary ---
Author Organization [facility] Address [address] [address] [place] [address] Care Team Providers Care Medium Cycle Salesperson Name Role Phone Rika Kurtz [facility] Primary Care Provider [phone] Source Comments PLEASE NOTE, if this patient [...] Encounters Date Type Department Care Team Description 01/07/2025 9:00 AM EDT Office Visit [facility] [address] [place] [address] Cristo De La Cruz DMD from Last [...] Sign Reading Time Taken Comments Blood Pressure 127/71 01/07/2025 9:10 AM EDT Pulse 86 01/07/2025 9:10 AM EDT Temperature - - Respiratory Rate - - Oxygen Saturation - - Inhaled Oxygen Concentration - - Weight - - Height - - Body Mass Index - - Plan of Treatment Upcoming Encounters Date Type Department Care Team (Late st Contact Info) Description 02/11/2025 10:20 AM EDT Office Visit [facility] [address] [place] [address] Cherise Frost, RHD [address] [place] [address] Health Maintenance Due Date Last Done Comments Anxiety Screening 1987 Dental Perio Charting 1987 HPV Screening (self-collect) 1987 HPV Screening 1987 Pap + HPV 1987 Relationship Safety Screening/Counseling 11/05/2002 Imm-Hepatitis B (1 of 3 - 19 + 3-dose series) 11/05/2006 Cervical Cancer Screening 11/05/2008 Pap Smear 11/05/2008 Imm-HPV (1 - 3-dose SCDM series) 11/05/2014 Alcohol and Drug Screen 04/16/2024 Depression Annual Screen 04/16/2024 [id number] ( season) 2024 021, 08/18/2020 Imm-Influenza (#1) 2024 01/18/2024 Dental BW 08/08/2025 08/06/2024 Dental Examination 08/08/2025 08/06/2024 Dental Prophy 08/08/2025 08/06/2024 Tobacco Screening 09/10/2025 09/10/2024 Diabetes Screening 01/22/2027 01/23/2024, 1 , 01/23/2024 Hypertension Screening (#1) 01/07/2028 Dental FMX/Pano 08/08/2029 08/06/2024 Imm-DTaP/Tdap/Td (3 - Td or Tdap) 03/22/2030 020, 09/13/2018 HIV Screening Completed 07/17/2018 Hepatitis C Screening Completed 01/23/2024 , 01/23/2024, 11/29/2018 Cervical Ablation/Cold-Knife Conization Discontinued Cervical Cryotherapy Discontinued Colposcopy Discontinued Excision/Leep Discontinued HPV Genotyping Discontinued Vaginal Pap Discontinued Vulvoscopy Discontinued Procedures Procedure Name Priority Date/Time Associated Diagnosis Comments CASE PRESENTATION SUBS DTL & EXTENSIVE TX PLN Routine 01/07/2025 9:00 AM EDT Defective dental mormon 16 MO RESIN-BASED COMPOSITE - TWO SURFACES POSTERIOR Routine 01/07/2025 9:00 AM EDT Caries Defective dental mormon Abfraction 5 B(V) RESIN-BASED COMPOSITE - ONE SURFACE POSTERIOR Routine 01/07/2025 9:00 AM EDT Abfraction Defective dental mormon Caries INTRAORAL - COMP SERIES OF RADIOGRAPHIC IMAGES Routine 08/06/2024 1:00 PM EDT Abfraction Caries Defective dental mormon Encounter for dental examination PROPHYLAXIS - ADULT Routine 08/06/2024 1 :00 PM EDT Abfraction Caries Encounter for dental examination COMP ORAL EVALUATION - NEW/ESTABLISHED PATIENT Routine 08/06/2024 1:00 PM EDT Caries Encounter for dental examination from Last 3 Months or Most Recently Relevant to Health Maintenance Insurance [facility] ([facility]) Member Subscriber Plan / Payer ( fective 2020-Present) Name:Mabel Rawls Relation to Subscriber:Self Name:Lizblanka Mabel Payer ID:[id number] Type:[employer] Address: [address] [place] [address] DENTAL Care Teams Medium Cycle Salesperson Relationship Specialty Start Date End Date Rika Kurtz FNP [address] [place] [address] PCP - General Internal Medicine 01/19/21
--- OUTSIDE RECORDS SUMMARY | 2025-02-09 18:59 | XMS_ITS | Data Portability ---
Author Organization [place] - [facility], [facility] Address [address] [place] [address] Assessment No assessment recorded. Plan of Treatment Reminders Order Date Submit Date Provider Last Modified By Organization Details Last Modified Time Details Appointments None recorded. Lab test, urine 2023 024 [email or web address] i1 In-Office Order, Internal Use Only DO Not Attach Compendium DO Not Attach Compendium, Do Not Delete/merge, [id number] 16:12:09 Referral None recorded. Procedures None recorded. Surgeries None recorded. Imaging None recorded. Medication Orders None recorded. Patient TargetsNo targets recorded. Patient Instructions Encounter Date Encounter Id Patient Instructions Last Modified By Organization Details Last Modified Time 10/30/2023 [id number] infertility: car e instructions [email or web address] Not available 11/08/2023 19:59:43 Reason for Referral None Reported. Results Created Date Observation Date Name Description Value Unit Range Abnormal Flag Note LastModifiedBy Organization Detail LastModifiedTime 03/06/20 24 03/06/2024 pregn abbey test, urine Result negati ve Not Available In-Office Order Internal Use Only DO Not Attach Compendium DO Not Attach Compendium, Do Not Delete/merge, [id number] 03/06/2024 14:07:34 10/30/1910/29/2024 OVA 1+ [id number] 9.0 U/mL premen opausa l: 0.0 - [...] er tumor s. Not Available [facility] [address] [place] [address], [place], [address], 10/30/2024 16:26:22 10/30/1910/29/2024 OVA 1+ ova1 3.2 unspec ified menopa usal status : low risk < 4.4; elevat ed risk > 7.0; reflex to overa >= 4.4 and <= 7.0 Refer ence Range (s): Unspe cifie d Menop ausal Statu s: Low Risk < 4.4; [place] baldemar Risk > 7.0; Refle x to [...] value of 98%. Not Available [facility] [address] [place] [address], [place], [address], 10/30/2024 16:26:22 10/30/1910/29/2024 OVA 1+ risk of malignancy premenopausa l, low risk ultrasound Risk Of Malign abbey: 0.6% (Preme nopaus al, Low Risk Ultras ound) Not Available [facility] [address] [place] [address], [place], [address], 10/30/2024 16:26:22 10/30/19 25 10/29/2024 OVA 1+ risk of malignancy premenopausa l, high risk ultrasound Risk of Malign abbey: 2.6% (Preme nopaus al, High Risk Ultras ound) Not Available [facility] [address] [place] [address] [address] [address], [place], [address], 10/30/2024 16:26:22 10/30/19 25 10/29/2024 OVA 1+ risk of malignancy postmenopaus al, low risk ultrasound Risk of Malign abbey: 2.3% (Postm enopau marybeth, Low Risk Ultras ound) Not Available [facility] [address] [facility] [address] [facility] [address], [place], [address], 10/30/2024 16:26:22 10/30/19 25 10/29/2024 OVA 1+ risk of malignancy postmenopaus al, high risk ultrasound Risk of Malign abbey: 8.6% (Postm enopau marybeth, High Risk Ultras ound) Not Available [facility] [address] [place] [address], [place], [address], 10/30/2024 16:26:22 10/30/19 25 10/29/2024 OVA 1+ disclaimers See Commen ts Discl aimer Resul ts canno t be inter prete d as absol [place] evide nce of the prese nce or absen [facility] se and shoul d alway [...] all women shoul d discu ss the [facility] ts with their healt hcare provi mary, who can recom mend follo w up testi ng or proce dures when appro priat e. This test was devel oped and its perfo rmanc e erica cteri stics deter mined by [facility]( R), a wholl y owned subsi diary of [facility] [facility]. Ova1P stephan(R ), an offer ing from [employer] is a refle x proce ss which perfo nicholas Ova1( R) and then perfo nicholas Overa (R) if the Ova1( R) resul t is in the inter media te range . [facility]( R), a wholl y owned subsi diary of [employer] [facility] , in [facility], which is certi fied under the Clini sisi Labor atory Impro vemen t Amend ments of 1987 (CLIA ) as quali fied to perfo rm high compl exity clini sisi testi ng. Ova1P stephan(R ) is perfo rmed by [employer]( R), a wholl y owned subsi diary of Qurater anastasia [facility] , [address] [address] [facility] [address] [place], [place] [address] . CAP: [id number]; CLIA: [id number] ; AU ID: [id number]; [facility] Labor atory Certi ficat e Lab ID#: [id number]; [facility] Labor atory Permi t: [id number]; Labor atory Direc tor: Pepe Sanchez che, Ph.D. Not Available teextee [address] [facility] [address] [address] [facility] [address], [place], [address], 10/30/2024 16:26:22 10/30/19 25 10/29/2024 OVA 1+ [...] risk findi ngs. Not Available [facility] [address] [address], [place], [address], 10/30/2024 16:26:22 10/30/19 25 10/29/2024 OVA 1+ [...] :65. e1-65 .e11 Not Available [facility] [address] [facility] [address], [place], [address], 10/30/2024 16:26:22 11/21/19 24 11/21/2023 US, trans vagin al RAD [email or web address] [facility] [address], [place], [address], 12/18/2023 07:45:09 03/06/20 24 03/06/2024 US, salin e infus ed uteru s RAD [email or web address] [facility] [address], [place], [address], 03/07/2024 16:23:07 11/05/19 25 11/03/2024 US, trans vagin al No observ ation record ed. [email or web address] [facility] [address], [place], [address], 11/05/2024 15:56:24 Result Notes None recorded. Problems No Known Problems Procedures Surgical History Date Name Laterality Status Provider Name and Address Organization Details Recorded Time 03/06/20 24 Saline Infusion Sonogram (SIS) completed REBECCA SANTILLAN DO [address] [facility], [address]rd Floor, [place], [address], [place] [facility] 03/06/2024 14:05:45 05/26/19 19 Oophorectomy completed [facility] 10/30/2023 14:17:43 05/26/19 19 Ovarian Cystectomy completed [facility] 10/30/2023 14:17:43 08/24/19 07 Appendectomy completed [facility] 10/30/2023 14:17:43 02/24/19 99 Cardiac Surgery completed [facility] 10/30/2023 14:17:43 Imaging Results None recorded. Procedure [...] Updated DateTime 10/27/2024 167.64 cm 26 kg/m2 77476.37 g 118/68 mm[Hg] Justo Cool [facility] 10/27/2024 16:13:56 Date Recorded Body weight Body mass index (BMI) Body height Systolic And Diastolic Provider Name and Address Organization Details Last Updated DateTime 10/30/2023 27979.15 g 26.5 kg/m2 167.64 cm 130/70 mm[Hg] Elodia Watt [facility] 10/30/2023 14:19:46 Date Recorded Body height Body mass index (BMI) Body weight Systolic And Diastolic Provider Name and Address Organization Details Last Updated DateTime 12/19/2023 167.64 cm 26.5 kg/m2 69345.15 g 120/80 mm[Hg] Elodia Watt [facility] 12/19/2023 14:09:22 Social History Question Answer Notes LastModified by Organizat ion Details LastModified Time Tobacco Smoking Status Never Smoker Elodia ham, [facility] 10/30/2023 14:17:40 What Is The Highest Grade Or Level Of School You Have Completed Or The Highest Degree You Have Received? [id number] Information not available 10/30/2023 Do You Have [...] Functional Status Question Answer Note LastModified by [employer] ion Details LastModified Time What is your level of alcohol consumption? Occasional Information not available 10/30/2023 What is your exercise level? Occasional Information not available 10/30/2023 Mental Status Question Answer Note LastModified by Organization D etails LastModified Time Do you feel stressed (tense, restless, nervous, or anxious, or unable to sleep at night)? [id number] Information not available 10/30/2023 Family History Relationship Description Onset Age of this Age Resolved Age Notes LastModified by Organization Details LastModified Time Maternal Aunt Malignant neoplasm of colon Not available 2023 14:17:25 Brother Coronary arterioscler osis 37 Not available 2023 14:17:25 Father Hypertensive disorder 50 Not available 2023 14:17:25 Medical History Condition Response Other N *No Diseases or Conditions N Blood clots N Breast Cancer N Benign breast disease N Colon cancer N Lung Disease N Depression N Defects or Inherited Disease Y Anesthesia Complications N BrCa gene tested? N Headaches/Migraines N Have you ever been on isolation N Anxiety Disorder N Arthritis N HSV N Infertility Y Abnormal pap N Interstitial Cystitis N Acid Reflux (GERD) Y Cancer N [...] Diagnosis SNOMED-CT Code Diagnosis ICD10 Code Diagnosis IMO Codes Diagnosis Note [id number] AMALIA RENDON DO [facility] [address] [place] [address] 10/30/2023 14:07:01 11/05/2023 15:24:41 Female infertility 2773352 N97.9 Endometrio sis of ovary 316170703 N80.109 37 yo F in office for follow up for endometrio maMed, surg, OBGYN hx all reviewedNO medical records available for review prior to this visit despite attempts before apt to collect records from [facility] with Dimitry rothman at this time. Thorough [...] USN, surgery, labs pending USN and records [id number] AMALIA RENDON , DO G5 [address] [place] [address] 12/19/2023 13:46:48 12/25/2023 15:13:43 Polyp of corpus uteri 67627346 N84.0 38 yo F in office to follow up on USNMed, surg, OBGYN hx all reviewedPt is trying for pregnancyF ollowed with ONN STIVEN - not undergoing any IUI or [...] ns reviewedAl l questions answeredSI S scheduled [id number] REBECCA SANTILLAN, DO G5 [address] [place] [address] 03/06/2024 13:28:30 03/06/2024 15:42:11 Ultrasound scan abnormal [id number] R93.89 Patient here for SONOHYST s/p a [...] obvious polyps/fib roids or intracavit josselyn findings.R anitraiewed at length with patient.Sh e will continue to attempt . [id number] AMALIA RENDON , WHG5 [address] [place], [place] [address] 10/27/2024 16:10:13 10/30/2024 13:21:09 Cyst of right ovary 8189763601 3481372 N83.201 [id number] 38 yo F in office to follow up on right ovarian cyst Dx on recent pelvic TVUSMed, surg, OBGYN hx all reviewedPt with hx of left ovary removal and cyst removal during pregnancyP t is trying to conceive, not using any hormonal controlShe was experienci ng pelvic pain and went to [facility] who ordered pelvic USNPelvic USN showed a 6.6 x 4 x 6 cm ovarian cyst with mural noduleRevi ewed USN and discussed prior USNs in office including SISUSN findings reviewedDi scussed concerns related to malignancy , borderline tumors with certain USN findingsPt has already been scheduled for rpt follow up USN through [facility] where she had prior USNReviewe d blood work and recommende d OVA 1 tumor markers to risk stratifyRe viewed potential follow up interventi ons pending OVA 1 and pending lab findingsDi scussed surgical options, observatio n options and potential need for referral to [facility] pending findingsPt appears to be clinically well at this timeNo significan t painWill follow up OVA 1 testing and rpt USN findings with further recommenda tionsPain and torsion precaution s reviewedAl l questions answered [id number] Total Time on date of the encounter: 35 minutesObt ain a patient history and/or review a separately obtained history: 5 minutesRev iewing patient s lab/radio logy/test results: 5 minutesExa mining the patient: 5 minutesDis cussing Treatment options with patient/fa brayden/careg iver: 10 minutesCou nseling and education of the patient/fa brayden/vandana iver: 5 minutesUpd ating/docu menting clinical informatio n in the patient s medical record: [address] of right ovary [id number] 3458980 N83.291 [id number] Health Concerns Section Related Observation LastModified by Organization Detai ls LastModified Time None Recorded Concern Status LastModified by Organization Details LastModified Time None Recorded Advance Directives Directive None Recorded Payers Insurance Date Sequence Insurance Name Policy Number Policy Robertson Covered Member ID Robertson Member ID Guarantor Name 10/30/2024 1 [employer] [facility] [id number] Mabel Rawls [id number] Mabel Rawls Notes Date Note Type Note Provider Name and Address Organization Details Recorded Time 4 text/html [facility] InfertilityReported by PatientHPIFor context, patient reportsmenstrual cycles regular/monthly,no history of std/pelvic infection,no past iud use,no history of endometriosis,no fibroids,no abdominal surgery,no prior infertility,no sexual dysfunction,no recurrent miscarriage,no history of pco,no history of thyroid dysfunction,no family history of congenital anomalies/chromosomal abnormalities/genetic disorders, andhistory of chicken pox. For associated symptoms, patient reportsno pelvic pain,no abdominal pain,no dyspareunia,no abnormal bleeding, andno premenstrual symptoms.ROS as noted in the HPI AMALIA RENDON DO [address], [address], [facility] 11/05/2023 14:23:55 4 text/html [facility] ContraceptionReported by PatientHPIFor associated symptoms, patient reportsregular menses,no btb menses, andno side effects.ROS as noted in the HPI AMALIA RENDON DO [address], [address], [facility] 12/25/2023 12:06:57 4 text/html Patient present for sonohysterogram due to possible uterine polyp seen on PELVIC USN done on 11/21/2023. She is attempting . REBECCA SANTILLAN, DO [address] [facility], [address], [place], [address], [facility] 03/06/2024 14:26:12 5 text/html [facility] Pelvic PainReported by PatientHPIFor associated symptoms, patient reportsno abdominal pain,no back pain,no chills,no constipation,no diarrhea,no vaginal discharge,no pain with urination,normal emptying of bladder,no feelings of urgency,no blood in the urine,normal libido,no fever,no nausea,no vomiting,no nocturia,no sexual abuse,no ectopic pregnancies,no endometriosis,no urinary frequency,no vaginal itching or irritation, andno dyspareunia.ROS as noted in the HPI AMALIA RENDON, DO [address] [facility], [address] [facility], [place], [address], [facility] 10/30/2024 12:26:26 OBGyn Episode Ob Episode Information Episode Created Date Number of Fetuses Patient Bloodtype Patient rh Status Prepregnancy Weight lbs Domestic Partner Domestic Partner Phone Father Name Software Systems Architect Status 10/30/19 24 1 CLOSED Fetus Data First Name Last Name Admitted to NICU Weight (g) Sex Living Outcome Pediatric Complications Fetus ID Race Codes Race Delivery Type 2919.77 1704 F Full Term [id number] Vaginal Delivery Tyrell Calculation Initial Tyrell [...]
== END 2025-02-09 16:02 | disposition home or self-care (01) ==
LOC: HO.US 16:01
PROVIDERS: Visit Provider Obstetrics & Gynecology
DX: N83.201 Unspecified ovarian cyst, right side (principal)
CPT/HCPCS: 76830; 76856

== ENCOUNTER → 2025-02-09 16:17 | Outpatient (BNV) | payer OTHER, SELFPAY | PROVIDERS: Visit Provider Radiology Diagnostic Radiology | DX: N83.201 Unspecified ovarian cyst, right side (principal) | CPT/HCPCS: 76830; 76856 ==